=== PATIENT | female | born 1950 | race Caucasian/White ===

== ENCOUNTER → 2017-07-25 11:10 | Outpatient (CLI) | payer MEDICARE, SELFPAY ==
--- NOTE | 2017-07-25 15:45 | STRESSREP ---
Stress Test Report Date: 07/25/2017 Procedure: Exercise tolerance test Indications: Aortic valve replacement; precardiac rehabilitation evaluation Consent: Per the patient Procedure: The patient exercised on a Diego protocol for 3 minutes 30 seconds completing stage I and 30 minutes seconds stage II achieving a peak heart rate of 141 bpm (92% predicted maximal heart rate) with a peak blood pressure 172/80 mmHg and a peak MET capacity of 5 MBT's. The baseline ECG demonstrated normal sinus rhythm. The peak exercise ECG demonstrated no obvious ECG changes. There was a rare PVC during exercise. The functional capacity was considered decreased. There was no complaint of chest discomfort during exercise or recovery. The examination was discontinued secondary to dyspnea. Impression: 1. Technically adequate (percent predicted maximal heart rate greater than 85%) exercise tolerance test 2. Peak exercise ECG with no obvious ECG changes 3. Decreased functional density This note was generated with NGIation software. It may contain incorrect words, spelling, and punctuation that were not noted in checking the note before signing.
--- NOTE | 2017-07-25 15:48 | STRESSREP_ITS ---
Stress Test Report Date: 07/25/2017 Procedure: Exercise tolerance test Indications: Aortic valve replacement; precardiac rehabilitation evaluation Consent: Per the patient Procedure: The patient exercised on a Diego protocol for 3 minutes 30 seconds completing stage I and 30 minutes seconds stage II achieving a peak heart rate of 141 bpm ( 92% predicted maximal heart rate) with a peak blood pressure 172/80 mmHg and a peak MET capacity of 5 MBT's. The baseline ECG demonstrated normal sinus rhythm. The peak exercise ECG demonstrated no obvious ECG changes. There was a rare PVC during exercise. The functional capacity was considered decreased. There was no complaint of chest discomfort during exercise or recovery. The examination was discontinued secondary to dyspnea. Impression: 1. Technically adequate (percent predicted maximal heart rate greater than 85% ) exercise tolerance test 2. Peak exercise ECG with no obvious ECG changes 3. Decreased functional density This note was generated with Hunchation software. It may contain incorrect words, spelling, and punctuation that were not noted in checking the note before signing.
== END ==
PROVIDERS: Family Provider Family Medicine; PCP Family Medicine; Visit Provider Internal Medicine Cardiovascular Disease
DX: Z01.810 Encounter for preprocedural cardiovascular examination (principal); I35.9 Nonrheumatic aortic valve disorder, unspecified
CPT/HCPCS: 93017

== ENCOUNTER → 2017-09-04 12:50 | Outpatient (CLI) | payer MEDICARE, SELFPAY ==
--- NOTE | 2017-09-04 13:03 | PCM.CR.HP2 ---
CR - History & Physical - General Arrival date:: 09/04/17 Arrival time:: 13:03 Date of Admission: 09/04/17 Referring Physician: Primary Diagnosis: Z95.2 - History of Present Cardiac Event Onset Date: Enter Onset Date of cardiac illnesses in Comment field below Angina:: Yes MS:: No CABG:: No PTCA:: No Valve Replacement/Repair:: Yes - tissue AVR 05/04/17 Pacemaker/ICD: No Type of Symptoms:: Chest tightness with activity. Interventions with present event:: AVR Were there any complications?: no - Medications Home Medications: Ambulatory Orders Medication Instructions Recorded Aspirin [Aspirin, Baby] 162 mg PO DAILY@0800 09/04/17 Calcium Carbonate [Tums] 750 mg PO DAILY 09/04/17 Carboxymethylcellulose Sodium 15 ml OP PRN PRN 09/04/17 [Refresh Tears] Cholecalciferol (VIT D3) [Vitamin 1,000 unit PO DAILY 09/04/17 D] Ferrous Gluconate [Iron] 236 mg PO DAILY 09/04/17 Ibuprofen 400 mg PO 4X/DAY PRN 09/04/17 Metoprolol Tartrate [Lopressor 25 mg PO BID 09/04/17 (Beta Satish)] Multivitamin [Multiple Vitamins] 1 each PO DAILY 09/04/17 Sodium Chloride 0.65% [[place] Nasal 1 spray NASAL PRN PRN 09/04/17 [place]] - Allergies Allergies/Adverse Reactions: Allergies acetaminophen [From Tylenol] Allergy (Unknown, Verified 09/04/17 14:25) Vomiting environmental Allergy (Unknown, Uncoded 09/04/17 14:27) Itching poison neal, oak, tide detergent, strawberries, tomatoes. codeine Allergy (Uncoded 09/04/17 14:26) Unknown - Sleep Disorder Evaluation Hx of Sleep Apnea: No Do you snore loudly (louder than talking or can be heard through closed doors)?: No Do you often feel tired/ fatigued/ sleepy during daytime?: Yes Has anyone observed you stop breathing during sleep?: No History of Hypertension (for STOP score): Yes STOP Results: Positive Advanced Directives - Advanced Directives Power of Claims Adjustor: Yes Living Will: Yes Advance Directives Information Provided: No Advance Directives on File: No - Pt will bring in copy. DNR Order?:: No Past Medical History - Problems and Co-Morbidities Problems & Co-Morbidities: Obesity, Hypertension, Sedentary Lifestyle - Past Medical Illness Past Medical Illness: Arthritis - fingers, Lung or Breathing Problems - SOB with activity prior to surgery. Other Medical Illnesses:: reynauds. - Past Cardiac Illness Past Cardiac Illness: Valve Disorders - aortic stenosis, Heart Murmur - Other Other: Vision/Eye Problems - Cardiology Procedures/Interventions Cardiology Procedures/Interventions: Heart Catheterization, Echocardiogram, Stress Test (regular) - Family History Summary Family History: Heart Disease: Maternal, Paternal, Sibling, High Cholesterol: Sibling, Cancer: Maternal Review of Systems - Review of Systems Hints: Right click = Denies (Slash). Left click = Reports ([place]) Review of Present Symptoms: Reports: Fatigue, Appetite - Normal, Appetite - Special Diet, Sleep - Normal. Denies: Shortness of Breath at Rest, Shortness of Breath with Exertion, PVD, Operative Discomfort, Angina, Wound Healing, Dizziness/Lightheadedness, Heart Arrhythmia/Irregularities, Sexual Changes Risk Factor Assessment - Chief Complaint Chief Complaint: Get stronger. - Pulse Pulse Rate: 88 Pulse Rhythm: Regular - Hypertension How long have you been treated?: 25 years On medication(s)?: years Blood Pressure Sitting - Right Arm: 130/78 Blood Pressure Sitting - Left Arm: 140/80 - Diabetes Nutrition Referral for Diabetes: No - Obesity Height: 1.63 m Weight:: 75.296 kg Weight in Pounds: 166.0 lbs Body Mass Index (BMI): 28.5 Realistic Weight Goal (Loss of 1-2 lbs/week): 140 Nutritional Referral for Obesity: Yes - Physical Inactivity Physical Inactivity: Reg Exercise 30 min/day - Risk Stratification Risk Guidelines: Lowest Risk: Risk Factor for Smoking, Risk Factor for Diabetes, Risk Factor for Depression, Moderate Risk: Risk Factor for Dyslipidemia, Risk Factor for Obesity, Risk Factor for Hypertension, Risk Factor for Sedentary Lifestyle - For Smoking Smoking Risk Guidelines: Smoking Low Risk: None or quit greater than 6 months ago. Smoking Moderate Risk: Smoker or quit 6 months or less ago. Smoking High Risk: Smoker - For Dyslipidemia Dyslipidemia Risk Guidelines: Low Risk: Moderate Risk: High Risk: 15-25% fat 25.1-29% fat >/= 30% fat. <7% sat fat 7-9% sat fat >9% sat fat. <150 mg chol 150-299 mg chol >/= 300 mg chol. LDL <100 LDL 100-129 LDL >/= 130. Chol/HDL ratio <5.0 Chol/HDL ratio 5.0-6.0 Chol/HDL ratio >6.0. Triglycerides <100 Triglycerides 100-149 Triglycerides >/= 150 - For Diabetes Mellitus Diabetes Risk Guidelines: Diabetes Low Risk: HgA1c <6.5% and/or FBG <120. Diabetes Moderate Risk: HgA1c 6.6-7.9% and/or FBG 120-180. Diabetes High Risk: HgA1c >/= 8% and/or FBG >180 - For Obesity/Overweight Obesity/Overweight Risk Guidelines: Obesity Low Risk: BMI <25.0. Obesity Moderate Risk: BMI 25-29.9. Obesity High Risk: BMI >/= 30.0 - For Hypertension Hypertension Risk Guidelines: Hypertension Low Risk: Systolic <120 and Diastolic <80. Hypertension Moderate Risk: Systolic 120-139 and Diastolic 80-89. Hypertension High Risk: Systolic >/= 140 and Diastolic >/= 90 - For Sedentary Lifestyle Sedentary Lifestyle Risk Guidelines: Sedentary Lifestyle Low Risk: >/= 1,500 kcal/week. Sedentary Lifestyle Moderate Risk: 700-1,499 kcal/week. Sedentary Lifestyle High Risk: < 700 kcal/week - For Depression Depression Risk Guidelines: Depression Low Risk: Not clinically depressed. Depression Moderate Risk: Mildly depressed. Depression High Risk: Clinically depressed Social History - Smoking History Smoking Status: Never smoker Hx Tobacco Use: No Hx Smoking Exposure: Yes - exposed as a child to smoke - Alcohol Use Alcohol Usage: No - Substance Abuse Hx Substance Use: No - Occupation Occupation (List type of work in comments):: Retired - Hobbies, Recreation, Social Activities Hobbies: Sewing, Watch TV, Other - gardening. Recreational Activities: I am able to engage in all my recreational activities Marital Status - Status Marital Status: Single - Current Living Arrangements Living Environment:: Alone - Children Do any of your children live nearby?: No - Safety Do you feel safe in your surroundings?: Yes - Assistance Do you need any assistance at home?: no
--- NOTE | 2017-09-04 13:13 | CR.ITP_ITS ---
Exercise - Initial Assessment - Visit Date of Eval: 09/04/17 - Stages of Change Stages of Change:: Action - Hypertension Do any of the following apply?: Yes - Intervention Home Exercise/Activity Goal:: Moderate Exercise 30 min/day x 5 days/wk - Education Goals:: Warm-up, RPE ROBIN Scale, S/S, Safe Exercise, Self-Monitoring - Exercise Program Goals Exercise Program Goals: Aerobic Activity >30 min Nutrition - Initial Assessment - Program Goals Nutrition Program Goals: LDL <70. Total Cholesterol <200. HDL >45. Triglycerides <150. HgbA1C <7%. BMI <25 - Visit Date of Assessment:: 09/04/17 - Stages of Change Stages of Change:: Action - Diabetes Diabetes:: No - Weight Management Height: 1.63 m Weight:: 75.296 kg Weight Goal (kg):: 63.503 kg Body Fat %:: 28.65 Goal % Body Fat:: 24 - Intervention Referral to dietitian:: Yes Referral to Diabetic Clinic:: No Will attend diet classes:: Yes - Education Gave educational materials for:: Healthy eating Nutrition - 30-Day Assessment - Program Goals Nutrition Program Goals: LDL <70. Total Cholesterol <200. HDL >45. Triglycerides <150. HgbA1C <7%. BMI <25 - Diabetes Diabetes:: No Nutrition - 60-Day Assessment - Program Goals Nutrition Program Goals: LDL <70. Total Cholesterol <200. HDL >45. Triglycerides <150. HgbA1C <7%. BMI <25 - Diabetes Diabetes:: No Nutrition - 90-Day Assessment - Program Goals Nutrition Program Goals: LDL <70. Total Cholesterol <200. HDL >45. Triglycerides <150. HgbA1C <7%. BMI <25 - Diabetes Diabetes:: No Nutrition - Final Assessment - Program Goals Nutrition Program Goals: LDL <70. Total Cholesterol <200. HDL >45. Triglycerides <150. HgbA1C <7%. BMI <25 - Diabetes Diabetes:: No Tobacco - Initial Assessment - Program Goals Tobacco Program Goals: Complete smoking cessation. Attend education classes. Improve Knowledge Test score - Stage of Change Stages of Change:: Maintenance - Learning Barriers Learning Barriers: Ready to Learn Total Score:: 8 - Family Support Do you have family support?: Yes - Tobacco Use Tobacco Use: Non-smoker Do you use smokeless tobacco?: No - Intervention Smoking Cessation Referral:: No Individual Education/Counseling:: No Education Schedule Given:: Yes - Education Gave educational material for:: Coronary artery disease, Risk factors, Sexuality , Medical compliance, Cardiac A&P, Angina signs & symptoms Psychosocial - Initial Assess - Target Goals Target Goals: Assess presence or absence of depression. Using a valid screening tool, maximizes coping skills. Positive support system - Stages of Change Stages of Change:: Action - Psychosocial Test Tool Used:: HANDS Depression Questionnaire Self-reported stress:: no Tests Completed: Mood Scale Test Total Mood Screening Score:: 4 Self-Efficacy Score:: 8 - Intervention PS - Interventions: Yes Attend Stress Management Classes, Yes Uses Stress Management Skills, No Referral to Mental Health, No Referral to [facility] Case Management, No Referral to Physician - Education Gave educational materials for:: Coping techniques, Signs & symptoms of depression, Stress management, Relaxation techniques - Patient/Program Goal Preventative Medication(s):: Aspirin, ASHLEY inhibitor, Beta debora, Statin/lipid - Assistive Devices Assistive Devices:: None Fall Risk Assessed:: Yes Patient Health Questionnaire Initial Assessment 1. Little interest or pleasure in doing things: Several days 2. Feeling down, depressed, or hopeless: Several days 3. Trouble falling or staying asleep, or sleeping too much: Not at all 4. Feeling tired or having little energy: Several days 5. Poor appetite or overeating: Not at all 6. Feeling bad about yourself -- or that you are a failure or have let yourself or your family down: Not at all 7. Trouble concentrating on things, such as reading the newspaper or watching television: Not at all 8. Moving or speaking so slowly that other people could have noticed. Or the opposite - being so fidgety or restless that you have been moving around a lot more than usual: Not at all 9. Thoughts that you would be better off , or of hurting yourself in some way: Not at all How difficult have these problems made it for you to do your work, take care of things at home, or get along with other people?: Not difficult at all Total Score: 3 Knowledge Test - Check your knowledge Initial The #1 cause of in the [place] each year is:: Heart disease Which of the following is a common treatment for heart disease?: All of the above The arteries that feed the heart are called:: Coronary arteries HDL cholesterol is known as the good cholesterol.: False What disease increases your risk for heart disease?: Diabetes What food product raises blood cholesterol level the most?: Saturated fat The bad cholesterol in the blood is called:: HDL Hypertension is another word for:: High blood pressure A blood pressure reading of 148/88 is considered normal.: False Exercise will only benefit your health when your heart rate reaches a target level.: False Total Score:: 8 Self-Efficacy Initial Assessment We would like to know how confident you are in doing certain activities. Please select your confidence level for:: Select your confidence level for the following using the scale 1-10 where 1 is not at all confident and 10 is totally confident. Your score is the average of all 6 responses. Fatigue: How confident are you that you can keep the fatigue caused by your disease from interfering with the things you want to do? Select Number: 9 Physical Discomfort or Pain: How confident are you that you can keep the physical discomfort or pain of your disease from interfering with the things you want to do? Select Number: 10 Emotional Distress: How confident are you that you can keep the emotional distress caused by your disease from interfering with the things you want to do? Select Number: 9 Other Symptoms or Health Problems: How confident are you that you can keep other symptoms or health problems from interfering with the things you want to do? Select Number: 8 Different Tasks and Activities: How confident are you that you can do the different tasks and activities needed to manage your health condition so as to reduce your need to see a doctor? Select Number: 9 Medication: How confident are you that you can do things other than just taking medication to reduce how much your illness affects your everyday life? Select Number: 10 Total Score:: 9 Nutrition Survey - Nutrition Survey Instructions Scoring Instructions: Scoring is as follows: Yes = 1 points. No = 0 point. Patient score that is >/=12 is considered to be at potential nutritional risk and could benefit from a referral to a registered dietitian. - Nutrition Survey Initial Have you lost >10 lbs over the past 2 months without trying?: No Are you following a special diet at home for diabetes, low fat, or low salt?: Yes Are you interested in meeting with a dietitian for help understanding your diet? : Yes Do you eat less than 3 meals a day?: No Do you eat fatty meats (banuelos, sausage, ribs, etc), fried foods, desserts, large amounts of salad dressings, margarine, butter, or cheese most days?: No Do you have food allergies? [Enter types in comment field]: Yes Do you eat in restaurants more than 3 times a week?: No Do you season food with salt, seasoning salt, or garlic salt?: No Do you used canned, boxed, frozen meals, or soups, seasoning packets?: Yes Total Score:: 4 Cardiac Rehabilitation Goals - Cardiac Rehab Goals Cardiac Rehabilitation Goals: 1. Maintain the individual as the primary focus of care. 2. To improve the patient's quality of life. 3. Identification of cardiac risk factors and provide cardiac risk factor management. 4. Enhance the psychosocial status of the patient. 5. Reconditioning enough to allow the patient to resume customary activities. 6. Control symptoms of cardiac disease - Scale Scale for measuring improvement of personal goals: Enter appropriate number in Comments. 2 = Unchanged. 3 = Slightly Better. 4 = Moderate Improvement. 5 = Met my Goal Initial Assessment Personal Goals: 30-day Re-assessment: Improve energy level, Participate in home exercise program, Improve muscle strength and endurance, Improve diet and eating habits (eat healthier), Control risk factors (learn risk factor modification)
--- NOTE | 2017-09-04 13:29 | CR.HP_ITS ---
CR - History & Physical - General Arrival date:: 09/04/17 Arrival time:: 13:03 Date of Admission: 09/04/17 Referring Physician: Primary Diagnosis: Z95.2 - History of Present Cardiac Event Onset Date: Enter Onset Date of cardiac illnesses in Comment field below Angina:: Yes SD:: No CABG:: No PTCA:: No Valve Replacement/Repair:: Yes - tissue AVR 05/04/17 Pacemaker/ICD: No Type of Symptoms:: Chest tightness with activity. Interventions with present event:: AVR Were there any complications?: no - Medications Home Medications: Ambulatory Orders Medication Instructions Recorded Aspirin [Aspirin, Baby] 162 mg PO DAILY@0800 09/04/17 Calcium Carbonate [Tums] 750 mg PO DAILY 09/04/17 Carboxymethylcellulose Sodium 15 ml OP PRN PRN 09/04/17 [Refresh Tears] Cholecalciferol (VIT D3) [Vitamin 1,000 unit PO DAILY 09/04/17 D] Ferrous Gluconate [Iron] 236 mg PO DAILY 09/04/17 Ibuprofen 400 mg PO 4X/DAY PRN 09/04/17 Metoprolol Tartrate [Lopressor 25 mg PO BID 09/04/17 (Beta Satish)] Multivitamin [Multiple Vitamins] 1 each PO DAILY 09/04/17 Sodium Chloride 0.65% [[place] Nasal 1 spray NASAL PRN PRN 09/04/17 [place]] - Allergies Allergies/Adverse Reactions: Allergies acetaminophen [From Tylenol] Allergy (Unknown, Verified 09/04/17 14:25) Vomiting environmental Allergy (Unknown, Uncoded 09/04/17 14:27) Itching poison neal, oak, tide detergent, strawberries, tomatoes. codeine Allergy (Uncoded 09/04/17 14:26) Unknown - Sleep Disorder Evaluation Hx of Sleep Apnea: No Do you snore loudly (louder than talking or can be heard through closed doors)? : No Do you often feel tired/ fatigued/ sleepy during daytime?: Yes Has anyone observed you stop breathing during sleep?: No History of Hypertension (for STOP score): Yes STOP Results: Positive Advanced Directives - Advanced Directives Power of Access Specialist: Yes Living Will: Yes Advance Directives Information Provided: No Advance Directives on File: No - Pt will bring in copy. DNR Order?:: No Past Medical History - Problems and Co-Morbidities Problems & Co-Morbidities: Obesity, Hypertension, Sedentary Lifestyle - Past Medical Illness Past Medical Illness: Arthritis - fingers, Lung or Breathing Problems - SOB with activity prior to surgery. Other Medical Illnesses:: reynauds. - Past Cardiac Illness Past Cardiac Illness: Valve Disorders - aortic stenosis, Heart Murmur - Other Other: Vision/Eye Problems - Cardiology Procedures/Interventions Cardiology Procedures/Interventions: Heart Catheterization, Echocardiogram, Stress Test (regular) - Family History Summary Family History: Heart Disease: Maternal, Paternal, Sibling, High Cholesterol: Sibling, Cancer: Maternal Review of Systems - Review of Systems Hints: Right click = Denies ([place]). Left click = Reports ([place]) Review of Present Symptoms: Reports: Fatigue, Appetite - Normal, Appetite - Special Diet, Sleep - Normal. Denies: Shortness of Breath at Rest, Shortness of Breath with Exertion, PVD, Operative Discomfort, Angina, Wound Healing, Dizziness/Lightheadedness, Heart Arrhythmia/Irregularities, Sexual Changes Risk Factor Assessment - Chief Complaint Chief Complaint: Get stronger. - Pulse Pulse Rate: 88 Pulse Rhythm: Regular - Hypertension How long have you been treated?: 25 years On medication(s)?: years Blood Pressure Sitting - Right Arm: 130/78 Blood Pressure Sitting - Left Arm: 140/80 - Diabetes Nutrition Referral for Diabetes: No - Obesity Height: 1.63 m Weight:: 75.296 kg Weight in Pounds: 166.0 lbs Body Mass Index (BMI): 28.5 Realistic Weight Goal (Loss of 1-2 lbs/week): 140 Nutritional Referral for Obesity: Yes - Physical Inactivity Physical Inactivity: Reg Exercise 30 min/day - Risk Stratification Risk Guidelines: Lowest Risk: Risk Factor for Smoking, Risk Factor for Diabetes , Risk Factor for Depression, Moderate Risk: Risk Factor for Dyslipidemia, Risk Factor for Obesity, Risk Factor for Hypertension, Risk Factor for Sedentary Lifestyle - For Smoking Smoking Risk Guidelines: Smoking Low Risk: None or quit greater than 6 months ago. Smoking Moderate Risk: Smoker or quit 6 months or less ago. Smoking High Risk: Smoker - For Dyslipidemia Dyslipidemia Risk Guidelines: Low Risk: Moderate Risk: High Risk: 15-25% fat 25.1-29% fat >/= 30% fat. <7% sat fat 7-9% sat fat >9% sat fat. <150 mg chol 150-299 mg chol >/= 300 mg chol. LDL <100 LDL 100-129 LDL >/= 130. Chol/HDL ratio <5.0 Chol/HDL ratio 5.0-6.0 Chol/HDL ratio >6.0. Triglycerides <100 Triglycerides 100-149 Triglycerides >/= 150 - For Diabetes Mellitus Diabetes Risk Guidelines: Diabetes Low Risk: HgA1c <6.5% and/or FBG <120. Diabetes Moderate Risk: HgA1c 6.6-7.9% and/or FBG 120-180. Diabetes High Risk: HgA1c >/= 8% and/or FBG >180 - For Obesity/Overweight Obesity/Overweight Risk Guidelines: Obesity Low Risk: BMI <25.0. Obesity Moderate Risk: BMI 25-29.9. Obesity High Risk: BMI >/= 30.0 - For Hypertension Hypertension Risk Guidelines: Hypertension Low Risk: Systolic <120 and Diastolic <80. Hypertension Moderate Risk: Systolic 120-139 and Diastolic 80-89. Hypertension High Risk: Systolic >/= 140 and Diastolic >/= 90 - For Sedentary Lifestyle Sedentary Lifestyle Risk Guidelines: Sedentary Lifestyle Low Risk: >/= 1 ,500 kcal/week. Sedentary Lifestyle Moderate Risk: 700-1,499 kcal/week. Sedentary Lifestyle High Risk: < 700 kcal/week - For Depression Depression Risk Guidelines: Depression Low Risk: Not clinically depressed. Depression Moderate Risk: Mildly depressed. Depression High Risk: Clinically depressed Social History - Smoking History Smoking Status: Never smoker Hx Tobacco Use: No Hx Smoking Exposure: Yes - exposed as a child to smoke - Alcohol Use Alcohol Usage: No - Substance Abuse Hx Substance Use: No - Occupation Occupation (List type of work in comments):: Retired - Hobbies, Recreation, Social Activities Hobbies: Sewing, Watch TV, Other - gardening. Recreational Activities: I am able to engage in all my recreational activities Marital Status - Status Marital Status: Single - Current Living Arrangements Living Environment:: Alone - Children Do any of your children live nearby?: No - Safety Do you feel safe in your surroundings?: Yes - Assistance Do you need any assistance at home?: no
[2017-09-04 14:27] VITALS: BP 130/78; BP 140/80; PULSE 88; BMI 28.5
== END ==
PROVIDERS: Family Provider Family Medicine; PCP Family Medicine; Visit Provider Internal Medicine Cardiovascular Disease
DX: Z95.2 Presence of prosthetic heart valve (principal)

== ENCOUNTER 2017-10-02 09:15 | Outpatient (RCR) | payer MEDICARE, SELFPAY ==
--- NOTE | 2017-09-25 08:02 | PCM.CR.ITP ---
General Information - General Information Admitting Diagnosis: aortic valve replacement - Education/Goals Barriers to Learning: Vision Impairment Individual Counseling: Initial Assessment: Abnormal Cholesterol Levels, High Blood Pressure, Hypertension, 30-Day Assessment: Abnormal Cholesterol Levels, High Blood Pressure, Hypertension Cardiac Rehabilitation Goals: 1. Maintain the individual as the primary focus of care. 2. To improve the patient's quality of life. 3. Identification of cardiac risk factors and provide cardiac risk factor management. 4. Enhance the psychosocial status of the patient. 5. Reconditioning enough to allow the patient to resume customary activities. 6. Control symptoms of cardiac disease Scale for measuring improvement of personal goals: Enter appropriate number in Comments. 2 = Unchanged. 3 = Slightly Better. 4 = Moderate Improvement. 5 = Met my Goal Exercise - 30-day Assessment - Visit Date of Eval: 09/25/17 - Stages of Change Stages of Change:: Action - Exercise Prescription Mode:: Treadmill, Airdyne, NuStep Frequency (x/week): 3 Duration:: 30 METs - Progression: 0.5-1 MET as tolerated: 3.5 Target Heart Rate:: 114-122 - Hypertension Resting Blood Pressure:: 128/66 Peak Exercise Blood Pressure:: 180/88 Medication Changes:: No - Intervention Home Exercise/Activity Goal:: Sitting Time <3 hrs/day - Education Goals:: Warm-up, RPE ROBIN Scale, S/S, Safe Exercise, Self-Monitoring - Exercise Program Goals Exercise Program Goals: Aerobic Activity >30 min, B/P <140/90 Nutrition - 30-Day Assessment - Program Goals Nutrition Program Goals: LDL <70. Total Cholesterol <200. HDL >45. Triglycerides <150. HgbA1C <7%. BMI <25 - Visit Date of Eval: 09/25/17 - Stages of Change Stages of Change:: Action - Lipids Has the patient seen the dietitian?: No - Diabetes Diabetes:: No - Weight Management Weight:: 167 kg - Intervention Referral to dietitian:: No Referral to Diabetic Clinic:: No Will attend diet classes:: Yes - Education Attended class for:: Signs & symptoms of hypoglycemia, Signs & symptoms of hyperglycemia, Relate diabetes to coronary artery disease, Healthy eating Tobacco - Initial Assessment - Program Goals Tobacco Program Goals: Complete smoking cessation. Attend education classes. Improve Knowledge Test score - Learning Barriers Learning Barriers: Ready to Learn Tobacco - 30-Day Assessment - Program Goals Tobacco Program Goals: Complete smoking cessation. Attend education classes. Improve Knowledge Test score - Stage of Change Stages of Change:: Action - Learning Barriers Learning Barriers: Participates in education - Family Support Do you have family support?: Yes - Tobacco Use Tobacco Use: Non-smoker Do you use smokeless tobacco?: No - Intervention Smoking Cessation Referral:: No Individual Education/Counseling:: No Education Schedule Given:: Yes - Education Attended class for:: Tobacco triggers, Coronary artery disease, Risk factors, Sexuality, Medical compliance, Cardiac A&P Psychosocial - Initial Assess - Target Goals Target Goals: Assess presence or absence of depression. Using a valid screening tool, maximizes coping skills. Positive support system - Psychosocial Test Tool Used:: HANDS Depression Questionnaire - Assistive Devices Fall Risk Assessed:: Yes Psychosocial - 30-Day Assess - Target Goals Target Goals: Assess presence or absence of depression. Using a valid screening tool, maximizes coping skills. Positive support system - Stages of Change Stages of Change:: Action - Psychosocial Test Tool Used:: HANDS Depression Questionnaire - Intervention PS - Interventions: Yes Attend Stress Management Classes, Yes Uses Stress Management Skills, No Referral to Mental Health, No Referral to [facility] Case Management, No Referral to Physician - Education Attended classes for:: Coping techniques, Signs & symptoms of depression, Stress management, Relaxation techniques - Assistive Devices Assistive Devices:: None Fall Risk Assessed:: Yes Patient Health Questionnaire 30-Day Re-eval Assessment 1. Little interest or pleasure in doing things: Not at all 2. Feeling down, depressed, or hopeless: Not at all 3. Trouble falling or staying asleep, or sleeping too much: Not at all 4. Feeling tired or having little energy: Several days 5. Poor appetite or overeating: Not at all 6. Feeling bad about yourself -- or that you are a failure or have let yourself or your family down: Not at all 7. Trouble concentrating on things, such as reading the newspaper or watching television: Not at all 8. Moving or speaking so slowly that other people could have noticed. Or the opposite - being so fidgety or restless that you have been moving around a lot more than usual: Not at all 9. Thoughts that you would be better off , or of hurting yourself in some way: Not at all How difficult have these problems made it for you to do your work, take care of things at home, or get along with other people?: Not difficult at all Total Score: 1 Self-Efficacy 30-Day Re-eval Assessment We would like to know how confident you are in doing certain activities. Please select your confidence level for:: Select your confidence level for the following using the scale 1-10 where 1 is not at all confident and 10 is totally confident. Your score is the average of all 6 responses. Fatigue: How confident are you that you can keep the fatigue caused by your disease from interfering with the things you want to do? Select Number: 5 Physical Discomfort or Pain: How confident are you that you can keep the physical discomfort or pain of your disease from interfering with the things you want to do? Select Number: 5 Emotional Distress: How confident are you that you can keep the emotional distress caused by your disease from interfering with the things you want to do? Select Number: 5 Other Symptoms or Health Problems: How confident are you that you can keep other symptoms or health problems from interfering with the things you want to do? Select Number: 5 Different Tasks and Activities: How confident are you that you can do the different tasks and activities needed to manage your health condition so as to reduce your need to see a doctor? Select Number: 5 Medication: How confident are you that you can do things other than just taking medication to reduce how much your illness affects your everyday life? Select Number: 5 Total Score:: 5
[2017-09-25 08:21] VITALS: BP 128/66; BP 180/88
== END 2017-10-02 23:59 ==
LOC: CR 09:15
PROVIDERS: Family Provider Family Medicine; PCP Family Medicine; Visit Provider Internal Medicine Cardiovascular Disease
DX: Z95.2 Presence of prosthetic heart valve (principal)
CPT/HCPCS: 93798

== ENCOUNTER 2017-10-25 10:08 | Observation (INO) | payer MEDICARE, SELFPAY ==
[2017-10-25] VITALS (10 sets, daily range): BP systolic 134–200; BP diastolic 56–88; PULSE 76–124; RESP 14–22; TEMP 36.6–36.9; O2SAT 96–100; BMI 28.4; BMI 28.0; BMI 28.1
--- NOTE | 2017-10-25 10:52 | RAD_ITS ---
STUDY: X-RAY CHEST REASON FOR EXAM: Female, 67 years old. Chest pain. Abnormal EKG findings. TECHNIQUE: PA and lateral views of the chest. COMPARISON: None. FINDINGS: EKG electrodes are seen. The lungs are clear and expanded. There is no demonstrated pleural abnormality. Sternal cerclage wires are present from a prior sternotomy. The patient is status post mitral valve replacement. Normal mediastinum and chelsey. Normal visualized pulmonary arteries. Normal visualized aortic arch and descending thoracic aorta. There is demineralization of the osseous structures. Increased kyphosis. Normal visualized ribs, clavicles, and shoulders. There is no demonstrated abnormality of the visualized soft tissue structures of the upper abdomen. RAD/Chest PA and Lateral IMPRESSION: No acute abnormality is seen. Electronically Signed: Cristopher Avila MD at 12:23 EDT Tel [phone], Service support ,
[2017-10-25 11:11] LABS: Absolute Lymphocyte Count 1.46 X10^3/ul (0.83-4.51); Absolute Neutrophil Count 4.9 X10^3/uL (2.0-7.7); Basophil# 0.01 X10^3/uL; Basophil% 0.1 % (0-1); Eosinophil# 0.04 X10^3/uL; Eosinophils% 0.6 % (0-5); Hematocrit 39.7 % (37-47); Hemoglobin 11.9 g/dl (12.0-15.0); Lymphocyte # 1.46 X10^3/ul (4.0); Lymphocyte % 20.9 % (19-41); Mean Corpuscular Hgb 26.5 pg (27.0-32.0); Mean Corpuscular Volume 88.4 fL (81-99); Mean Platelet Vol. 9.1 fl (6.2-12.0); Monocyte# 0.51 X10^3/uL; Monocyte% 7.3 % (0-10); Neutrophil % 70.4 % (47-70); POSITIVE COUNT NO; POSITIVE DIFFERENTIAL NO; POSITIVE MORPHOLOGY NO; Platelet Count 296 K/mm3 (150-450); RBC Distribution Width CV 15.8 % (11.6-14.6); RBC Distribution Width SD 50.8 fl (35.1-43.9); Red Blood Count 4.49 M/mm3 (4.2-5.4)
[2017-10-25 11:29] LABS: Anion Gap 6 (5-15); BUN 14 mg/dL (7-18); BUN/Creat Ratio 19.2 RATIO (10-20); Calcium,Total 9.3 mg/dL (8.5-10.1); Chloride 104 mmol/L (98-107); Creatinine, Serum 0.73 mg/dL (0.55-1.02); EST Glomerular Filtration Rate 84 mL/min (>60); Est Glom Filt Rate - Afr Amer 102 mL/min (>60); Estimated Creatinine Clearance 47.14 ml/min; Glucose 100 mg/dL (74-106); Potassium 4.2 mmol/L (3.5-5.1); Sodium Level 137 mmol/L (136-145)
--- NOTE | 2017-10-25 12:27 | ED.VISSUMM ---
- ER Visit Summary Date of Service: 10/25/17 Chief Complaint: Abnormal EKG History of Present Illness: The patient is a 67 F who was sent due to an abnormal EKG. She has a history of aortic valve replacement. She was at cardiac rehab today. She states that she has generalized fatigue and just does not feel well. She denies any chest pain or shortness of breath and states I can climbing stairs no problem. She did have some mild dizziness however she relates this to sinusitis as she has had a couple of days of sinus congestion and bilateral ear pressure. She has been taking loratadine and Flonase. While at cardiac rehab today when she was placed on the monitor she was noted to be and what appeared to be an accelerated junctional rhythm. The EKG was sent to Dr. Machuca who wanted the patient evaluated here in the emergency department. Physical Examination: Afebrile vitals are stable Moist mucous membranes Heart regular rate and rhythm Lungs are clear Abdomen soft Alert Extremities nontender symmetric radial pulses Test Results: OG shows an accelerated junctional rhythm at a rate of 88. There are septal Q waves. No old EKG to compare to. Chest x-ray on my review shows no acute process. Labs notable for troponin 0.231. Emergency Department Course and Treatment: She is symptomatic while here at rest. She did have an elevated troponin. I spoke to the patient's lean coach. He also vocalize concern for possible atrial flutter without being able to see clear flutter waves. He reviewed the patient's preoperative cardiac catheterization and did note that the patient had mild to moderate coronary artery disease. The patient will be discussed with hospitalist and admitted here for further workup including repeat enzymes and at minimum stress testing. Treatment Plan: [] Disposition: Admit Impression: Accelerated junctional rhythm Elevated troponin Coronary artery disease This note was generated with [employer] dictation software. It may contain incorrect words, spelling, and punctuation that were not noted in review of the chart prior to signing ED Disposition - Plan for ED Patient: Chief Complaint: Fatigue Referrals: Erik Palafox MD [Primary Care Provider] -
--- NOTE | 2017-10-25 12:30 | ED.DCSUM_ITS ---
- ER Visit Summary Date of Service: 10/25/17 Chief Complaint: Abnormal EKG History of Present Illness: The patient is a 67 F who was sent due to an abnormal EKG. She has a history of aortic valve replacement. She was at cardiac rehab today. She states that she has generalized fatigue and just does not feel well. She denies any chest pain or shortness of breath and states I can climbing stairs no problem. She did have some mild dizziness however she relates this to sinusitis as she has had a couple of days of sinus congestion and bilateral ear pressure. She has been taking loratadine and Flonase. While at cardiac rehab today when she was placed on the monitor she was noted to be and what appeared to be an accelerated junctional rhythm. The EKG was sent to Dr. Machuca who wanted the patient evaluated here in the emergency department. Physical Examination: Afebrile vitals are stable Moist mucous membranes Heart regular rate and rhythm Lungs are clear Abdomen soft Alert Extremities nontender symmetric radial pulses Test Results: OG shows an accelerated junctional rhythm at a rate of 88. There are septal Q waves. No old EKG to compare to. Chest x-ray on my review shows no acute process. Labs notable for troponin 0.231. Emergency Department Course and Treatment: She is symptomatic while here at rest. She did have an elevated troponin. I spoke to the patient's gun examiner. He also vocalize concern for possible atrial flutter without being able to see clear flutter waves. He reviewed the patient's preoperative cardiac catheterization and did note that the patient had mild to moderate coronary artery disease. The patient will be discussed with hospitalist and admitted here for further workup including repeat enzymes and at minimum stress testing. Treatment Plan: [] Disposition: Admit Impression: Accelerated junctional rhythm Elevated troponin Coronary artery disease This note was generated with [employer] dictation software. It may contain incorrect words, spelling, and punctuation that were not noted in review of the chart prior to signing ED Disposition - Plan for ED Patient: Chief Complaint: Fatigue Referrals: Erik Palafox MD [Primary Care Provider] -
[2017-10-25] MEDS: Enoxaparin 80 MG/0.8 ML Syringe 70 MG SC ×2 (12:36→21:12)
--- NOTE | 2017-10-25 13:55 | PCM.CR.ITP ---
General Information - General Information Admitting Diagnosis: aortic valve replacement - Education/Goals Barriers to Learning: Vision Impairment Individual Counselin-Day Assessment: Abnormal Cholesterol Levels, High Blood Pressure Cardiac Rehabilitation Goals: 1. Maintain the individual as the primary focus of care. 2. To improve the patient's quality of life. 3. Identification of cardiac risk factors and provide cardiac risk factor management. 4. Enhance the psychosocial status of the patient. 5. Reconditioning enough to allow the patient to resume customary activities. 6. Control symptoms of cardiac disease Scale for measuring improvement of personal goals: Enter appropriate number in Comments. 2 = Unchanged. 3 = Slightly Better. 4 = Moderate Improvement. 5 = Met my Goal Exercise - 60-Day Assessment - Visit Date of Eval: 10/25/17 Session #:: 21 - Stages of Change Stages of Change:: Action - Exercise Prescription Mode:: Treadmill, Airdyne, NuStep Frequency (x/week): 3 Duration:: 30 METs: 4.2 - Hypertension Resting Blood Pressure:: 134/60 Peak Exercise Blood Pressure:: 200/82 Medication Changes:: No - Intervention Home Exercise/Activity Goal:: Sitting Time <3 hrs/day - Education Goals:: Warm-up, RPE ROBIN Scale, S/S, Safe Exercise, Self-Monitoring - Exercise Program Goals Exercise Program Goals: Aerobic Activity >30 min, B/P <130/80 Nutrition - 60-Day Assessment - Program Goals Nutrition Program Goals: LDL <70. Total Cholesterol <200. HDL >45. Triglycerides <150. HgbA1C <7%. BMI <25 - Visit Date of Eval: 10/25/17 - Stages of Change Stages of Change:: Action - Lipids Has the patient seen the dietitian?: No - Diabetes Diabetes:: No - Weight Management Weight:: 75.977 kg - Intervention Referral to dietitian:: No Referral to Diabetic Clinic:: No Will attend diet classes:: Yes - Education Attended class for:: Signs & symptoms of hypoglycemia, Signs & symptoms of hyperglycemia, Relate diabetes to coronary artery disease, Healthy eating Tobacco - Initial Assessment - Program Goals Tobacco Program Goals: Complete smoking cessation. Attend education classes. Improve Knowledge Test score - Learning Barriers Learning Barriers: Ready to Learn Tobacco - 60-Day Assessment - Program Goals Tobacco Program Goals: Complete smoking cessation. Attend education classes. Improve Knowledge Test score - Stage of Change Stages of Change:: Action - Learning Barriers Learning Barriers: Participates in education - Family Support Do you have family support?: Yes - Tobacco Use Tobacco Use: Non-smoker Do you use smokeless tobacco?: No - Intervention Smoking Cessation Referral:: No Individual Education/Counseling:: No Education Schedule Given:: Yes - Education Attended class for:: Tobacco triggers, Coronary artery disease, Risk factors, Sexuality, Medical compliance, Cardiac A&P, Angina signs & symptoms Psychosocial - Initial Assess - Target Goals Target Goals: Assess presence or absence of depression. Using a valid screening tool, maximizes coping skills. Positive support system - Psychosocial Test Tool Used:: HANDS Depression Questionnaire - Assistive Devices Fall Risk Assessed:: Yes Psychosocial - 60-Day Assess - Target Goals Target Goals: Assess presence or absence of depression. Using a valid screening tool, maximizes coping skills. Positive support system - Psychosocial Test Tool Used:: HANDS Depression Questionnaire - Intervention PS - Interventions: Yes Attend Stress Management Classes, Yes Uses Stress Management Skills, No Referral to Mental Health, No Referral to [facility] Case Management, No Referral to Physician - Education Attended classes for:: Coping techniques, Signs & symptoms of depression, Stress management, Relaxation techniques - Assistive Devices Assistive Devices:: None Fall Risk Assessed:: Yes Patient Health Questionnaire 60-Day Re-eval Assessment 1. Little interest or pleasure in doing things: Not at all 2. Feeling down, depressed, or hopeless: Not at all 3. Trouble falling or staying asleep, or sleeping too much: Not at all 4. Feeling tired or having little energy: Several days 5. Poor appetite or overeating: Not at all 6. Feeling bad about yourself -- or that you are a failure or have let yourself or your family down: Not at all 7. Trouble concentrating on things, such as reading the newspaper or watching television: Not at all 8. Moving or speaking so slowly that other people could have noticed. Or the opposite - being so fidgety or restless that you have been moving around a lot more than usual: Not at all 9. Thoughts that you would be better off , or of hurting yourself in some way: Not at all How difficult have these problems made it for you to do your work, take care of things at home, or get along with other people?: Not difficult at all Total Score: 1 Self-Efficacy 60-Day Re-eval Assessment We would like to know how confident you are in doing certain activities. Please select your confidence level for:: Select your confidence level for the following using the scale 1-10 where 1 is not at all confident and 10 is totally confident. Your score is the average of all 6 responses. Fatigue: How confident are you that you can keep the fatigue caused by your disease from interfering with the things you want to do? Select Number: 6 Physical Discomfort or Pain: How confident are you that you can keep the physical discomfort or pain of your disease from interfering with the things you want to do? Select Number: 6 Emotional Distress: How confident are you that you can keep the emotional distress caused by your disease from interfering with the things you want to do? Select Number: 6 Other Symptoms or Health Problems: How confident are you that you can keep other symptoms or health problems from interfering with the things you want to do? Select Number: 6 Different Tasks and Activities: How confident are you that you can do the different tasks and activities needed to manage your health condition so as to reduce your need to see a doctor? Select Number: 6 Medication: How confident are you that you can do things other than just taking medication to reduce how much your illness affects your everyday life? Select Number: 6 Total Score:: 6
--- NOTE | 2017-10-25 14:43 | ECHOD_ITS ---
Reason For Study: Arrhythmia Procedure This was a 2D Doppler, Color Flow transthoracic echocardiogram. Exam performed portable in patient room. Left Ventricle Moderate concentric left ventricular hypertrophy. The estimated ejection fraction is 65 %. Stage 1 diastolic dysfunction. No regional wall motion abnormalities noted. Right Ventricle Normal size and thickness. Normal systolic function. Atria Normal left atrium. Normal right atrium. Normal atrial septum. Mitral Valve The mitral valve is structurally normal. No prolapse or stenosis seen. Moderate mitral annular calcification extending into the posterior leaflet. Tricuspid Valve Normal tricuspid valve. Trivial tricuspid valve insufficiency. Right ventricular systolic pressure estimated to be 19 mmHg. Aortic Valve Bioprosthetic aortic valve. Stable appearing bioprosthetic aortic valve apparatus. Pulmonic Valve Normal pulmonic valve. Great Vessels Normal aortic root. Normal arch. Normal inferior vena cava. Inferior vena cava collapse with sniff. Pericardium/Pleural No pericardial effusion. MMode/2D Measurements & Calculations LVIDd: 2.9 cm IVSd: 1.5 cm LVOT diam: 2.0 cm LVIDs: 1.5 cm LVPWd: 1.5 cm LVOT area: 3.0 cm2 RVDd: 3.0 cm FS: 49.3 % LA dimension: 3.8 cm LAV(MOD-bp): 50.5 ml LA A4 area: 13.7 cm2 LAV(MOD-bp) Indexed: 28.2 ml/m2 LAV(MOD-sp2): 67.8 ml LAV(MOD-sp4): 32.5 ml RA A4 area: 15.6 cm2 Doppler Measurements & Calculations MV E max lilli: 147.3 cm/sec Ao V2 max: 235.9 cm/sec LV V1 max: 112.7 cm/sec Ao max P.3 mmHg LV V1 max P.1 mmHg Ao V2 mean: 152.2 cm/sec LV V1 mean P.0 mmHg Ao mean P.0 mmHg LV V1 mean: 80.7 cm/sec Ao V2 VTI: 40.7 cm LV V1 VTI: 22.1 cm KAYLA(I,D): 1.7 cm2 KAYLA(V,D): 1.5 cm2 SV(LVOT): 67.4 ml PA V2 max: 86.7 cm/sec TR max lilli: 188.1 cm/sec TR max P.2 mmHg Interpretation Summary Moderate concentric left ventricular hypertrophy. The estimated ejection fraction is 65 %. Stage 1 diastolic dysfunction. Trivial tricuspid valve insufficiency. Right ventricular systolic pressure estimated to be 19 mmHg. Stable appearing bioprosthetic aortic valve apparatus. There is no comparison study available. Ordering Physician: Dmitriy Ochoa Referring Physician: Kishor Julio Performed By: Alfonso Garcia RCS
--- NOTE | 2017-10-25 15:32 | PCM.CONS.C ---
Problem List (1) Accelerated junctional rhythm Status: Acute (2) Status post aortic valve replacement Status: Acute Reason for Consult Date of Consultation: 10/25/17 Reason for Consultation: Accelerated junctional rhythm, aortic valve replacement History of Present Illness: The patient is a 67 year old F, patient of Dr. Natalio Machuca's nondiabetic with a history of hypertension, status post aortic valve replacement at the [facility] in April 2017. Patient apparently was unable to participate in cardiac rehab until early September 2017 due to logistic issues. She has been participating in cardiac rehab without difficulty. Over the last 2 months she has been on ranitidine for sinus inflammation, as well as prednisone and amoxicillin. While the patient was at cardiac rehab today her rhythm was noted to be an accelerated junctional with a rate of around 85 bpm. The patient is asymptomatic and does not know or is aware that she is in this junctional rhythm, and denies any chest pain, angina, shortness of breath or dyspnea on exertion. She has had no fevers, chills, productive cough, presyncope or syncope. She reports that she did not have concomitant bypass surgery and did have open repair. At home she was on Lopressor 25 mg p.o. twice daily, and the ranitidine 10 mg a day. Her EKG shows junctional rhythm with a rate of around 88 bpm, no acute changes. No P waves noted. [] Past Medical History Allergies/Adverse Reactions: Allergies codeine Allergy (Verified 10/25/17 14:57) Unknown acetaminophen [From Tylenol] Adverse Reaction (Unknown, Verified 10/25/17 14:22) Vomiting environmental Allergy (Unknown, Uncoded 10/25/17 10:12) Itching poison neal, oak, tide detergent, strawberries, tomatoes. codeine Allergy (Uncoded 10/25/17 10:12) Unknown Home Medications: Ambulatory Orders Medication Instructions Recorded Aspirin [Aspirin, Baby] 162 mg PO DAILY@0800 09/04/17 Calcium Carbonate [Tums] 750 mg PO DAILY 09/04/17 Carboxymethylcellulose Sodium 15 ml OP PRN PRN 09/04/17 [Refresh Tears] Cholecalciferol (VIT D3) [Vitamin 1,000 unit PO DAILY 09/04/17 D] Ferrous Gluconate [Iron] 236 mg PO DAILY 09/04/17 Ibuprofen 400 mg PO 4X/DAY PRN 09/04/17 Metoprolol Tartrate [Lopressor 25 mg PO BID 09/04/17 (Beta Debora)] Multivitamin [Multiple Vitamins] 1 each PO DAILY 09/04/17 Sodium Chloride 0.65% [[place] Nasal 1 spray NASAL PRN PRN 09/04/17 [place]] Loratadine [Loratadine] 10 mg PO DAILY 10/25/17 Smoking Status: Never smoker Review of Systems - Review of Systems General: Denies: Fever, Night Sweats, Fatigue Cardiovascular: Denies: Chest Discomfort, Shortness of Breath, Orthopnea, PND, Peripheral Edema, Palpitations, Lightheadedness, Dizziness, Near Syncope, Syncope Respiratory: Denies: Cough, Sputum Production, Hemoptysis Gastrointestinal: Denies: Hematemesis, Hematochezia, Melena Genitourinary: Denies: Dysuria, Hematuria Skin: Denies: Rash Subjectve: Patient laying in bed, no acute distress. Objective: Vital Signs Temp Pulse Resp BP Pulse Ox 98.3 F 94 16 144/69 H 98 10/25/17 14:50 10/25/17 14:50 10/25/17 14:50 10/25/17 14:50 10/25/17 14:50 Oxygen Delivery Method Room Air Weight: 163 lb 12.8 oz Body Mass Index (BMI) 28.0 General: Awake, Alert, Oriented x 3 HEENT: PERRL, EOMI, Sclera Non Icteric Neck: Supple, Good ROM, No Lymph Node Enlargement Lungs: Clear to auscultation Cardiovascular: Regular Rhythm, Normal S1, Normal S2, No Rubs, No Gallops Murmur Murmur: Grade 2/6, Crescendo-Decrescendo Vascular: No Carotid Bruits, Normal Femoral Pulses, Normal Radial Pulses, Normal Dorsalis Pedal Pulse, Normal Posterior Tibial Pulses Abdomen: Bowel Sounds Present, Soft, Non Tender, No HSM, No Organomegaly Extremities: No Cyanosis, No Clubbing, No edema Neurological: No Focal Motor or Sensory Deficit Rhythm: EKG: As above ECHO: Pending Stress Test: Cardiac Cath: PCI: CT Surgery: Holter monitor: EPS: PPM: CXR: Chest CT Scan: Assessment/Plan #1. Accelerated junctional rhythm: Patient's accelerated junctional rhythm may be related to her recent daily use of the ranitidine 10 mg p.o. daily combined with her Lopressor 25 mg p.o. twice daily. I recommended that we discontinue her loratadine, as well as hold her beta-debora to determine if she reverts back to normal rhythm. I recommended that she undergo a 2D echo with Doppler, to determine if she has any deterioration of her LV function and to assess her pulmonary pressures and her aortic valve replacement. She has had no fevers or chills and has no outward signs of endocarditis at this time. Do not recommend obtaining blood cultures at this time. In addition I recommend anticoagulation as we are unable to determine what her atrial activity is in for stroke prevention. Would not recommend DC cardioversion at this time as she has not been on any kind of anticoagulation. If her rhythm does not normalize, she may require Eliquis therapy for 3 weeks time followed by elective synchronized DC cardioversion for heart rate control. Recommend obtaining the old records from her primary refrigerator crater Dr. Machuca to assess her coronary anatomy prior to her aortic valve replacement. Patient will require lifelong SBE prophylaxis. Recommend repeat EKG in the morning. 2. Abnormal troponin: The patient has no chest pain symptoms, and her troponin may be patient accounting representative of demand ischemia. Come in obtaining a sed rate as well as a high sensitivity CRP. Recommend ruling out for obtaining a troponin series ?3 sets. Continue baby aspirin. 2. Thank you very much for the opportunity to participate in the cardiac care of your patient. Consultation time took place between 3 PM and 3:[address] Ochoa. Code Visit Inpatient E&M: 77159 Subs Hosp L2
--- NOTE | 2017-10-25 15:43 | CON.PCM_ITS ---
Problem List (1) Accelerated junctional rhythm Status: Acute (2) Status post aortic valve replacement Status: Acute Reason for Consult Date of Consultation: 10/25/17 Reason for Consultation: Accelerated junctional rhythm, aortic valve replacement History of Present Illness: The patient is a 67 year old F, patient of Dr. Natalio Machuca's nondiabetic with a history of hypertension, status post aortic valve replacement at the [facility] in April 2017. Patient apparently was unable to participate in cardiac rehab until early September 2017 due to logistic issues. She has been participating in cardiac rehab without difficulty. Over the last 2 months she has been on ranitidine for sinus inflammation, as well as prednisone and amoxicillin. While the patient was at cardiac rehab today her rhythm was noted to be an accelerated junctional with a rate of around 85 bpm. The patient is asymptomatic and does not know or is aware that she is in this junctional rhythm, and denies any chest pain, angina, shortness of breath or dyspnea on exertion. She has had no fevers, chills, productive cough, presyncope or syncope. She reports that she did not have concomitant bypass surgery and did have open repair. At home she was on Lopressor 25 mg p.o. twice daily, and the ranitidine 10 mg a day. Her EKG shows junctional rhythm with a rate of around 88 bpm, no acute changes. No P waves noted. [] Past Medical History Allergies/Adverse Reactions: Allergies codeine Allergy (Verified 10/25/17 14:57) Unknown acetaminophen [From Tylenol] Adverse Reaction (Unknown, Verified 10/25/17 14:22) Vomiting environmental Allergy (Unknown, Uncoded 10/25/17 10:12) Itching poison neal, oak, tide detergent, strawberries, tomatoes. codeine Allergy (Uncoded 10/25/17 10:12) Unknown Home Medications: Ambulatory Orders Medication Instructions Recorded Aspirin [Aspirin, Baby] 162 mg PO DAILY@0800 09/04/17 Calcium Carbonate [Tums] 750 mg PO DAILY 09/04/17 Carboxymethylcellulose Sodium 15 ml OP PRN PRN 09/04/17 [Refresh Tears] Cholecalciferol (VIT D3) [Vitamin 1,000 unit PO DAILY 09/04/17 D] Ferrous Gluconate [Iron] 236 mg PO DAILY 09/04/17 Ibuprofen 400 mg PO 4X/DAY PRN 09/04/17 Metoprolol Tartrate [Lopressor 25 mg PO BID 09/04/17 (Beta Debora)] Multivitamin [Multiple Vitamins] 1 each PO DAILY 09/04/17 Sodium Chloride 0.65% [[place] Nasal 1 spray NASAL PRN PRN 09/04/17 [place]] Loratadine [Loratadine] 10 mg PO DAILY 10/25/17 Smoking Status: Never smoker Review of Systems - Review of Systems General: Denies: Fever, Night Sweats, Fatigue Cardiovascular: Denies: Chest Discomfort, Shortness of Breath, Orthopnea, PND, Peripheral Edema, Palpitations, Lightheadedness, Dizziness, Near Syncope, Syncope Respiratory: Denies: Cough, Sputum Production, Hemoptysis Gastrointestinal: Denies: Hematemesis, Hematochezia, Melena Genitourinary: Denies: Dysuria, Hematuria Skin: Denies: Rash Subjectve: Patient laying in bed, no acute distress. Objective: Vital Signs Temp Pulse Resp BP Pulse Ox 98.3 F 94 16 144/69 H 98 10/25/17 14:50 10/25/17 14:50 10/25/17 14:50 10/25/17 14:50 10/25/17 14:50 Oxygen Delivery Method Room Air Weight: 163 lb 12.8 oz Body Mass Index (BMI) 28.0 General: Awake, Alert, Oriented x 3 HEENT: PERRL, EOMI, Sclera Non Icteric Neck: Supple, Good ROM, No Lymph Node Enlargement Lungs: Clear to auscultation Cardiovascular: Regular Rhythm, Normal S1, Normal S2, No Rubs, No Gallops Murmur Murmur: Grade 2/6, Crescendo-Decrescendo Vascular: No Carotid Bruits, Normal Femoral Pulses, Normal Radial Pulses, Normal Dorsalis Pedal Pulse, Normal Posterior Tibial Pulses Abdomen: Bowel Sounds Present, Soft, Non Tender, No HSM, No Organomegaly Extremities: No Cyanosis, No Clubbing, No edema Neurological: No Focal Motor or Sensory Deficit Rhythm: EKG: As above ECHO: Pending Stress Test: Cardiac Cath: PCI: CT Surgery: Holter monitor: EPS: PPM: CXR: Chest CT Scan: Assessment/Plan #1. Accelerated junctional rhythm: Patient's accelerated junctional rhythm may be related to her recent daily use of the ranitidine 10 mg p.o. daily combined with her Lopressor 25 mg p.o. twice daily. I recommended that we discontinue her loratadine, as well as hold her beta-debora to determine if she reverts back to normal rhythm. I recommended that she undergo a 2D echo with Doppler, to determine if she has any deterioration of her LV function and to assess her pulmonary pressures and her aortic valve replacement. She has had no fevers or chills and has no outward signs of endocarditis at this time. Do not recommend obtaining blood cultures at this time. In addition I recommend anticoagulation as we are unable to determine what her atrial activity is in for stroke prevention. Would not recommend DC cardioversion at this time as she has not been on any kind of anticoagulation. If her rhythm does not normalize, she may require Eliquis therapy for 3 weeks time followed by elective synchronized DC cardioversion for heart rate control. Recommend obtaining the old records from her primary curb hop Dr. Machuca to assess her coronary anatomy prior to her aortic valve replacement. Patient will require lifelong SBE prophylaxis. Recommend repeat EKG in the morning. 2. Abnormal troponin: The patient has no chest pain symptoms, and her troponin may be contact center representative of demand ischemia. Come in obtaining a sed rate as well as a high sensitivity CRP. Recommend ruling out for obtaining a troponin series ?3 sets. Continue baby aspirin. 2. Thank you very much for the opportunity to participate in the cardiac care of your patient. Consultation time took place between 3 PM and 3:[address] Ochoa. Code Visit Inpatient E&M: 95260 Subs Hosp L2
--- NOTE | 2017-10-25 17:28 | PCM.HP.STD ---
Problem List (1) Generalized weakness Status: Acute (2) Accelerated junctional rhythm Status: Acute History of Present Illness Date of Admission: 10/25/17 Chief Complaint: Generalized weakness, accelerated junctional rhythm The patient is a 67 year old F was seen in the emergency room at [facility] after becoming weak while in the outpatient cardiac rehab unit. Patient denied any chest pain or shortness of breath, she denied any diaphoresis nausea or vomiting. EKG was obtained in the cardiac rehab department which showed a junctional rhythm at approximately 90 bpm, no evidence of ischemic changes were noted. Patient was directed to go to the emergency room for evaluation, evaluation in the emergency room included a chest x-ray which showed no evidence of acute disease, EKG showed an accelerated junctional rhythm at approximately 96 bpm-no evidence of ischemic changes were noted, patient's troponin was minimally elevated at 0.23, the remainder of her chemistry profile was unremarkable. Patient's white blood cell count was normal at 7, hemoglobin was slightly low at 11.9. Patient received Lovenox subcu for anticoagulation in the emergency room, this will be continued in the hospital. Patient was placed in observation status on PCU for elevated troponin and junctional rhythm, she will be seen by cardiology, she will have an echocardiogram, her metoprolol will be held. Patient underwent an aortic valve replacement with a bioprosthetic valve in April 2017, according to the patient, before her valve replacement she underwent a cardiac catheterization which showed nonocclusive coronary disease. Past Medical History Allergies codeine Allergy (Verified 10/25/17 14:57) Unknown acetaminophen [From Tylenol] Adverse Reaction (Unknown, Verified 10/25/17 14:22) Vomiting environmental Allergy (Unknown, Uncoded 10/25/17 10:12) Itching poison neal, oak, tide detergent, strawberries, tomatoes. codeine Allergy (Uncoded 10/25/17 10:12) Unknown Home Medications: Ambulatory Orders Medication Instructions Recorded Aspirin [Aspirin, Baby] 162 mg PO DAILY@0800 09/04/17 Calcium Carbonate [Tums] 750 mg PO DAILY 09/04/17 Carboxymethylcellulose Sodium 15 ml OP PRN PRN 09/04/17 [Refresh Tears] Cholecalciferol (VIT D3) [Vitamin 1,000 unit PO DAILY 09/04/17 D] Ferrous Gluconate [Iron] 236 mg PO DAILY 09/04/17 Ibuprofen 400 mg PO 4X/DAY PRN 09/04/17 Metoprolol Tartrate [Lopressor 25 mg PO BID 09/04/17 (Beta Satish)] Multivitamin [Multiple Vitamins] 1 each PO DAILY 09/04/17 Sodium Chloride 0.65% [[place] Nasal 1 spray NASAL PRN PRN 09/04/17 [place]] Loratadine [Loratadine] 10 mg PO DAILY 10/25/17 Surgical History: - - Aortic valve replacement April 2017 beef valve Psychiatric History: No pertinent psych hx ASSOCIATE History: No pertinent ASSOCIATE history Lives: Alone Smoking Status: Never smoker Tobacco Use: Non-smoker Alcohol: None Drugs: None - *Family History Maternal History Items: Cancer - Colon cancer Paternal History Items: Heart Disease Sibling History Items: Hypertension Review of Systems Constitutional: Reports: Weakness, Fatigue. Denies: Anorexia, Chills, Fever, Night Sweats, Malaise, Weight Change Eyes: Denies: Blurred vision, Cataracts, Conjunctivae Inflammation, Double vision, Drainage HEENT: Denies: Difficulty Hearing, Difficulty Swallowing, Dysphasia, Ear Pain, Eye Pain, Head Aches, Hearing Changes, Nasal bleeding, Nasal Congestion, Post Nasal Drip Cardiovascular: Denies: Chest Pain, Claudication, Chest Pressure, Chest Tightness, Edema, Heaviness, Palpitations Respiratory: Denies: Cough, Hemoptysis, Pleuritic Pain, Shortness of Breath, Shortness of breath at rest, Shortness of breath upon exertion, Sputum production Gastrointestinal: Denies: Abdominal Pain, Constipation, Diarrhea, Hematemesis, Hematochezia, Nausea, Melena, Vomiting Genitourinary: Denies: Dysuria, Frequency, Hematuria, Hesitancy, Urgency Gynecological: Denies: Breast symptoms Musculoskeletal: Denies: Foot Pain, Hand Pain, Joint Pain, Joint stiffness, Joint swelling, Joint Tenderness Skin: Denies: Dryness, Pruritis, Rash Neurological: Denies: Blurred vision, Double vision, Slurred speech, Difficulty swallowing, Focal weakness, Headaches, Incoordination, Numbness, Tingling Psychiatric: Denies: Anxiety, Depression, Homicidal Ideations, Suicidal Ideations Endocrine: Denies: Change in Body Habitus, Heat/ Cold Intolerance, Polydipsia, Polyuria Hematologic/ Lymphatic: Denies: Adenopathy, Anemia, Easy Bruising, Easy Bleeding, Petechiae, Purpura VTE Information - Inpt Only VTE Present on Admission: No VTE Mechan Device Prophylaxis: None VTE Pharm Prophylaxis ordered?: No Reason prophylaxis not ordered:: Medical Contraindication - She will be fully anticoagulated Patient Problems: Active and Suspected Problems Accelerated junctional rhythm (Acute) Status post aortic valve replacement (Acute) Generalized weakness (Acute) - Physical Exam General: Alert, Oriented x3, Cooperative, No apparent distress, Well developed, Well nourished HEENT: Atraumatic, PERRLA, EOMI, Normocephalic Oral: Moist Mucosa Neck: Supple, No JVD, Negative Carotid Bruits, No Nuchal Rigidity, Trachea Midline, Thyroid Normal Size and Texture Lungs: Clear to auscultation, Normal air movement, No rhonchi, No wheeze, No rales Cardiovascular: Regular rate, Regular Rhythm, Normal S1, Normal S2, No murmurs, No Ectopic Activity, PMI Normal, No rub noted, No Gallop Abdomen: Bowel Sounds Present, Soft, Non Tender, Non-Distended, No hernias noted Extremities: No clubbing, No cyanosis, No edema, Capillary Refill Less than 3 Seconds Skin: No rashes, No breakdown Musculoskeletal: No Tenderness to Palpation of Joints or Extremities Neurological: Cranial nerves II-XII grossly intact, Neuro grossly intact, Sensory exam intact to light touch and pain, Coordination normal Psych/Mental Status: Normal Affect, Appropriate, Alert and oriented to time, place, person, mood and affect Vital Signs Temp Pulse Resp BP Pulse Ox 98.3 F 95 16 144/69 H 98 10/25/17 14:50 10/25/17 15:33 10/25/17 14:50 10/25/17 14:50 10/25/17 14:50 Oxygen Delivery Method Room Air Weight: 74.298 kg Body Mass Index (BMI) 28.0 Laboratory Tests Past 24 Hrs 10/25/17 15:15 Troponin I 0.321 H Assessment/Plan Active and Suspected Problems Accelerated junctional rhythm (Acute) Status post aortic valve replacement (Acute) Generalized weakness (Acute) #1 accelerated junctional rhythm-patient will be placed in observation status on PCU, she will receive full anticoagulation with subcu Lovenox twice daily, her metoprolol will be held, she will be seen in consultation by cardiology, she will be monitored on telemetry. #2 elevated troponin-etiology unclear, EKG does not show any signs of ischemia or injury pattern. 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
--- NOTE | 2017-10-25 17:42 | HP.PCM_ITS ---
Problem List (1) Generalized weakness Status: Acute (2) Accelerated junctional rhythm Status: Acute History of Present Illness Date of Admission: 10/25/17 Chief Complaint: Generalized weakness, accelerated junctional rhythm The patient is a 67 year old F was seen in the emergency room at [facility] after becoming weak while in the outpatient cardiac rehab unit. Patient denied any chest pain or shortness of breath, she denied any diaphoresis nausea or vomiting. EKG was obtained in the cardiac rehab department which showed a junctional rhythm at approximately 90 bpm, no evidence of ischemic changes were noted. Patient was directed to go to the emergency room for evaluation, evaluation in the emergency room included a chest x-ray which showed no evidence of acute disease, EKG showed an accelerated junctional rhythm at approximately 96 bpm-no evidence of ischemic changes were noted, patient's troponin was minimally elevated at 0.23, the remainder of her chemistry profile was unremarkable. Patient's white blood cell count was normal at 7, hemoglobin was slightly low at 11.9. Patient received Lovenox subcu for anticoagulation in the emergency room, this will be continued in the hospital. Patient was placed in observation status on PCU for elevated troponin and junctional rhythm, she will be seen by cardiology, she will have an echocardiogram, her metoprolol will be held. Patient underwent an aortic valve replacement with a bioprosthetic valve in April 2017, according to the patient, before her valve replacement she underwent a cardiac catheterization which showed nonocclusive coronary disease. Past Medical History Allergies codeine Allergy (Verified 10/25/17 14:57) Unknown acetaminophen [From Tylenol] Adverse Reaction (Unknown, Verified 10/25/17 14:22) Vomiting environmental Allergy (Unknown, Uncoded 10/25/17 10:12) Itching poison neal, oak, tide detergent, strawberries, tomatoes. codeine Allergy (Uncoded 10/25/17 10:12) Unknown Home Medications: Ambulatory Orders Medication Instructions Recorded Aspirin [Aspirin, Baby] 162 mg PO DAILY@0800 09/04/17 Calcium Carbonate [Tums] 750 mg PO DAILY 09/04/17 Carboxymethylcellulose Sodium 15 ml OP PRN PRN 09/04/17 [Refresh Tears] Cholecalciferol (VIT D3) [Vitamin 1,000 unit PO DAILY 09/04/17 D] Ferrous Gluconate [Iron] 236 mg PO DAILY 09/04/17 Ibuprofen 400 mg PO 4X/DAY PRN 09/04/17 Metoprolol Tartrate [Lopressor 25 mg PO BID 09/04/17 (Beta Satish)] Multivitamin [Multiple Vitamins] 1 each PO DAILY 09/04/17 Sodium Chloride 0.65% [[place] Nasal 1 spray NASAL PRN PRN 09/04/17 [place]] Loratadine [Loratadine] 10 mg PO DAILY 10/25/17 Surgical History: - - Aortic valve replacement April 2017 beef valve Psychiatric History: 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 Denies: Anorexia, Chills, Fever, Night Sweats, Malaise, Weight Change Eyes: Denies: Blurred vision, Cataracts, Conjunctivae Inflammation, Double vision, Drainage HEENT: Denies: Difficulty Hearing, Difficulty Swallowing, Dysphasia, Ear Pain, Eye Pain, Head Aches, Hearing Changes, Nasal bleeding, Nasal Congestion, Post Nasal Drip Cardiovascular: Denies: Chest Pain, Claudication, Chest Pressure, Chest Tightness, Edema, Heaviness, Palpitations Respiratory: Denies: Cough, Hemoptysis, Pleuritic Pain, Shortness of Breath, Shortness of breath at rest, Shortness of breath upon exertion, Sputum production Gastrointestinal: Denies: Abdominal Pain, Constipation, Diarrhea, Hematemesis, Hematochezia, Nausea, Melena, Vomiting Genitourinary: Denies: Dysuria, Frequency, Hematuria, Hesitancy, Urgency Gynecological: Denies: Breast symptoms Musculoskeletal: Denies: Foot Pain, Hand Pain, Joint Pain, Joint stiffness, Joint swelling, Joint Tenderness Skin: Denies: Dryness, Pruritis, Rash Neurological: Denies: Blurred vision, Double vision, Slurred speech, Difficulty swallowing, Focal weakness, Headaches, Incoordination, Numbness, Tingling Psychiatric: Denies: Anxiety, Depression, Homicidal Ideations, Suicidal Ideations Endocrine: Denies: Change in Body Habitus, Heat/ Cold Intolerance, Polydipsia, Polyuria Hematologic/ Lymphatic: Denies: Adenopathy, Anemia, Easy Bruising, Easy Bleeding , Petechiae, Purpura VTE Information - Inpt Only VTE Present on Admission: No VTE Mechan Device Prophylaxis: None VTE Pharm Prophylaxis ordered?: No Reason prophylaxis not ordered:: Medical Contraindication - She will be fully anticoagulated Patient Problems: Active and Suspected Problems Accelerated junctional rhythm (Acute) Status post aortic valve replacement (Acute) Generalized weakness (Acute) - Physical Exam General: Alert, Oriented x3, Cooperative, No apparent distress, Well developed, Well nourished HEENT: Atraumatic, PERRLA, EOMI, Normocephalic Oral: Moist Mucosa Neck: Supple, No JVD, Negative Carotid Bruits, No Nuchal Rigidity, Trachea Midline, Thyroid Normal Size and Texture Lungs: Clear to auscultation, Normal air movement, No rhonchi, No wheeze, No rales Cardiovascular: Regular rate, Regular Rhythm, Normal S1, Normal S2, No murmurs, No Ectopic Activity, PMI Normal, No rub noted, No Gallop Abdomen: Bowel Sounds Present, Soft, Non Tender, Non-Distended, No hernias noted Extremities: No clubbing, No cyanosis, No edema, Capillary Refill Less than 3 Seconds Skin: No rashes, No breakdown Musculoskeletal: No Tenderness to Palpation of Joints or Extremities Neurological: Cranial nerves II-XII grossly intact, Neuro grossly intact, Sensory exam intact to light touch and pain, Coordination normal Psych/Mental Status: Normal Affect, Appropriate, Alert and oriented to time, place, person, mood and affect Vital Signs Temp Pulse Resp BP Pulse Ox 98.3 F 95 16 144/69 H 98 10/25/17 14:50 10/25/17 15:33 10/25/17 14:50 10/25/17 14:50 10/25/17 14:50 Oxygen Delivery Method Room Air Weight: 74.298 kg Body Mass Index (BMI) 28.0 Laboratory Tests Past 24 Hrs 10/25/17 15:15 Troponin I 0.321 H Assessment/Plan Active and Suspected Problems Accelerated junctional rhythm (Acute) Status post aortic valve replacement (Acute) Generalized weakness (Acute) #1 accelerated junctional rhythm-patient will be placed in observation status on PCU, she will receive full anticoagulation with subcu Lovenox twice daily, her metoprolol will be held, she will be seen in consultation by cardiology, she will be monitored on telemetry. #2 elevated troponin-etiology unclear, EKG does not show any signs of ischemia or injury pattern. Cardiology is following #3 coronary artery disease-according to patient's history it is nonocclusive in nature, echocardiogram will be obtained #4 valvular heart disease with beef bioprosthetic valve placement in April 2017 Code Visit OBSV E&M: 62038 Initial observation care L3
[2017-10-25 19:04] LABS: Erythrocyte Sedimentation Rate 105 mm/hr (0-30)
[2017-10-26] VITALS (7 sets, daily range): BP systolic 127–145; BP diastolic 61–84; PULSE 74–91; RESP 16; TEMP 36.6–36.8; O2SAT 97–100
--- NOTE | 2017-10-26 05:55 | EKG12_ITS ---
Test Reason : AM EKG Blood Pressure : / mmHG Vent. Rate : 080 BPM Atrial Rate : 080 BPM P-R Int : 338 ms QRS Dur : 090 ms QT Int : 414 ms P-R-T Axes : 070 068 079 degrees QTc Int : 477 ms Sinus rhythm with 1st degree A-V block Confirmed by DIANNA STEWARD, INDY ([id number]), video effects editor DEE DEE DELEON ([id number]) on 11/01/2017 2:55:24 PM Referred By: DR LOPEZ Confirmed By:INDY BUSTAMANTE MD
[2017-10-26] MEDS: Aspirin 81 MG TAB.CHEW 162 MG PO (09:17)
--- NOTE | 2017-10-26 09:26 | PCM.PN.CARD ---
Subjectve: Patient feeling much better today, and rhythm has reverted back to normal sinus rhythm with first-degree AV block after the loratadine and lopressor have been held. Objective: Vital Signs Temp Pulse Resp BP Pulse Ox 98.1 F 91 16 127/61 H 99 10/26/17 08:50 10/26/17 08:50 10/26/17 08:50 10/26/17 08:50 10/26/17 08:50 Oxygen Delivery Method Room Air Weight: 163 lb 12.8 oz Body Mass Index (BMI) 28.0 General: Awake, Alert, Oriented x 3 HEENT: PERRL, EOMI, Sclera Non Icteric Neck: Supple, Good ROM, No Lymph Node Enlargement Lungs: Clear to auscultation Cardiovascular: Regular Rhythm, Normal S1, Normal S2, No Rubs, No Gallops Murmur Murmur: Grade 2/6, Crescendo-Decrescendo Vascular: No Carotid Bruits, Normal Femoral Pulses, Normal Radial Pulses, Normal Dorsalis Pedal Pulse, Normal Posterior Tibial Pulses Abdomen: Bowel Sounds Present, Soft, Non Tender, No HSM, No Organomegaly Extremities: No Cyanosis, No Clubbing, No edema Neurological: No Focal Motor or Sensory Deficit 10/25/17 15:15: Troponin I 0.321 H 10/25/17 18:10: Troponin I 0.276 H Rhythm: EKG: ECHO: Stress Test: Cardiac Cath: PCI: CT Surgery: Holter monitor: EPS: PPM: CXR: Chest CT Scan: Medical Necessity - Tobacco Use Smoking Status: Never smoker Tobacco Use: Non-smoker Assessment/Plan #1. Accelerated junctional rhythm: Patient's accelerated junctional rhythm may be related to her recent daily use of the ranitidine 10 mg p.o. daily combined with her Lopressor 25 mg p.o. twice daily. I recommended that we discontinue her loratadine, as well as hold her beta-debroa to determine if she reverts back to normal rhythm. I recommended that she undergo a 2D echo with Doppler, to determine if she has any deterioration of her LV function and to assess her pulmonary pressures and her aortic valve replacement. Her echo is still pending. Assuming that there are no issues with her echo, she may be able to go home today now that she is reverted back to normal sinus rhythm with first-degree AV block. She has had no fevers or chills and has no outward signs of endocarditis at this time. Do not recommend obtaining blood cultures at this time. Patient has reverted back to normal sinus rhythm with first-degree AV block. Recommend discontinuation of the ranitidine, and holding her beta-debora until she returns to cardiac rehab. If the patient has further episodes of junctional arrhythmia while off of beta-debora therapy and loratadine therapy, she may require evaluation of dual-chamber pacemaker. Recommend obtaining the old records from her primary wet pour supervisor Dr. Machuca to assess her coronary anatomy prior to her aortic valve replacement. Patient will require lifelong SBE prophylaxis. Repeat EKG this morning shows normal sinus rhythm with first-degree AV block. Echo is pending. 2. Abnormal troponin: The patient has no chest pain symptoms, and her troponin may be customer care representative of demand ischemia. Patient's troponins were weakly positive, and she reportedly had normal coronary arteries per her history. Her at bedtime CRP is elevated indicating some kind of inflammation. Will await the echocardiogram to determine if she has any pericardial effusion and if so she may require ibuprofen therapy going forward. 2. Thank you very much for the opportunity to participate in the cardiac care of your patient. Code Visit Inpatient E&M: 37504 Subs Hosp L2
--- NOTE | 2017-10-26 09:30 | PN.CARD_ITS ---
Subjectve: Patient feeling much better today, and rhythm has reverted back to normal sinus rhythm with first-degree AV block after the loratadine and lopressor have been held. Objective: Vital Signs Temp Pulse Resp BP Pulse Ox 98.1 F 91 16 127/61 H 99 10/26/17 08:50 10/26/17 08:50 10/26/17 08:50 10/26/17 08:50 10/26/17 08:50 Oxygen Delivery Method Room Air Weight: 163 lb 12.8 oz Body Mass Index (BMI) 28.0 General: Awake, Alert, Oriented x 3 HEENT: PERRL, EOMI, Sclera Non Icteric Neck: Supple, Good ROM, No Lymph Node Enlargement Lungs: Clear to auscultation Cardiovascular: Regular Rhythm, Normal S1, Normal S2, No Rubs, No Gallops Murmur Murmur: Grade 2/6, Crescendo-Decrescendo Vascular: No Carotid Bruits, Normal Femoral Pulses, Normal Radial Pulses, Normal Dorsalis Pedal Pulse, Normal Posterior Tibial Pulses Abdomen: Bowel Sounds Present, Soft, Non Tender, No HSM, No Organomegaly Extremities: No Cyanosis, No Clubbing, No edema Neurological: No Focal Motor or Sensory Deficit 10/25/17 15:15: Troponin I 0.321 H 10/25/17 18:10: Troponin I 0.276 H Rhythm: EKG: ECHO: Stress Test: Cardiac Cath: PCI: CT Surgery: Holter monitor: EPS: PPM: CXR: Chest CT Scan: Medical Necessity - Tobacco Use Smoking Status: Never smoker Tobacco Use: Non-smoker Assessment/Plan #1. Accelerated junctional rhythm: Patient's accelerated junctional rhythm may be related to her recent daily use of the ranitidine 10 mg p.o. daily combined with her Lopressor 25 mg p.o. twice daily. I recommended that we discontinue her loratadine, as well as hold her beta-debora to determine if she reverts back to normal rhythm. I recommended that she undergo a 2D echo with Doppler, to determine if she has any deterioration of her LV function and to assess her pulmonary pressures and her aortic valve replacement. Her echo is still pending. Assuming that there are no issues with her echo, she may be able to go home today now that she is reverted back to normal sinus rhythm with first- degree AV block. She has had no fevers or chills and has no outward signs of endocarditis at this time. Do not recommend obtaining blood cultures at this time. Patient has reverted back to normal sinus rhythm with first-degree AV block. Recommend discontinuation of the ranitidine, and holding her beta-debora until she returns to cardiac rehab. If the patient has further episodes of junctional arrhythmia while off of beta-debora therapy and loratadine therapy, she may require evaluation of dual-chamber pacemaker. Recommend obtaining the old records from her primary phlebotomy director Dr. Machuca to assess her coronary anatomy prior to her aortic valve replacement. Patient will require lifelong SBE prophylaxis. Repeat EKG this morning shows normal sinus rhythm with first-degree AV block. Echo is pending. 2. Abnormal troponin: The patient has no chest pain symptoms, and her troponin may be access service representative of demand ischemia. Patient's troponins were weakly positive, and she reportedly had normal coronary arteries per her history. Her at bedtime CRP is elevated indicating some kind of inflammation. Will await the echocardiogram to determine if she has any pericardial effusion and if so she may require ibuprofen therapy going forward. 2. Thank you very much for the opportunity to participate in the cardiac care of your patient. Code Visit Inpatient E&M: 96997 Subs Hosp L2
--- NOTE | 2017-10-26 14:08 | CHAPLAIN ---
Type of Pastoral Visit _x__ Initial Visit ___ Follow-up Visit ___ On-call Visit ___ General Patient Visit ___ Spiritual Assessment ___ Family Conference ___ Bereavement ___ Rapid Response ___ Code Blue ___ Other (describe below) Pastoral Care Referral From _x__ Patient ___ Family ___ Nurse ___ Physician ___ Instructional Technology Facilitator ___ Setup Technician ___ Other (describe below) Sacrament/Intervention ___ Active listening ___ Anointing ___ Anglican ___ Bereavement ___ Communion ___ Susanne exploration ___ ___ Life review ___ Prayer ___ Reconciliation ___ Sacrament of Sick _x__ Supportive presence ___ Wedding ___ Other (describe below) Pastoral Comments patient had good news given to her and she is thankful to be heading home later today
--- NOTE | 2017-10-26 16:41 | DCINST_ITS ---
- Discharge Diagnoses Current Active Problems: Current Active and Chronic Problems Accelerated junctional rhythm (Acute) Status post aortic valve replacement (Acute) Generalized weakness (Acute) You will use the following diet at home:: No restrictions Your food should be the consistency of: Regular Your liquids should be the consistency of: Regular/Thin Discharge Activity: Return to Normal Activity Weight Bearing Status: Full weight bearing Additional Instructions: Take Benadryl for allergy or Zyrtec for allergy Allergies/Adverse Reactions: Allergies codeine Allergy (Verified 10/25/17 14:57) Unknown acetaminophen [From Tylenol] Adverse Reaction (Unknown, Verified 10/25/17 14:22) Vomiting environmental Allergy (Unknown, Uncoded 10/25/17 10:12) Itching poison neal, oak, tide detergent, strawberries, tomatoes. codeine Allergy (Uncoded 10/25/17 10:12) Unknown Medications to take at Discharge Aspirin [Aspirin, Baby] 162 mg PO DAILY@0800 09/04/17 Calcium Carbonate [Tums] 750 mg PO DAILY 09/04/17 Carboxymethylcellulose Sodium [Refresh Tears] 15 ml OP PRN PRN 09/04/17 Cholecalciferol (VIT D3) [Vitamin D3] 1,000 unit PO DAILY 09/04/17 Ferrous Gluconate [Iron] 236 mg PO DAILY 09/04/17 Ibuprofen 400 mg PO 4X/DAY PRN 09/04/17 Multivitamin [Multiple Vitamins] 1 each PO DAILY 09/04/17 Sodium Chloride 0.65% [[place] Nasal [place]] 1 spray NASAL PRN PRN 09/04/17 Primary Care Physician: Erik Palafox MD [Primary Care Provider] - Please follow up with your Primary Care Physician in: in 2 weeks Please Follow Up With: Kishor Julio MD When: in 7-10 days
--- NOTE | 2017-10-27 16:53 | PCM.DC.SUM ---
Discharge Date and Diagnosis Date of Admission: 10/25/17 Date of Discharge: 10/26/17 - Primary Discharge Diagnosis #1 accelerated junctional rhythm #2 prolonged first-degree AV block #3 aortic valvular heart disease with bioprosthetic aortic valve implantation April 2017 #4 nonocclusive coronary artery disease #5 elevated troponin-not felt to be a non-STEMI Hospital Course and Treatment Operations: None Procedures: 2-D Echocardiogram Summary of Care Provided: The patient is a 67 year old F who was seen in the emergency room at [facility] after being sent from cardiac rehab due to complaints of extreme weakness. She was noted in the cardiac rehab department to have an accelerated junctional rhythm at approximately 90 bpm, workup in the emergency room included labs which showed a mildly elevated troponin, EKG showed what appeared to be an accelerated junctional rhythm at 95 bpm, chest x-ray was unremarkable. Patient was placed in observation status on PCU, she was seen in consultation by cardiology who recommended discontinuation of her beta-debora and her home Claritin, echocardiogram was obtained which showed a normal EF of 65%, additional troponins were elevated at 0.32 and 0.27. Patient was not felt to have had a non-STEMI. Patient's sed rate was elevated at 105 and her C-reactive protein was elevated at 44.3 but the significance of these 2 findings were unknown. Later on in the afternoon of the patient's day of admission, she was noted to be in a prolonged first-degree AV block, EKGs the following day on 10/26/17 also showed a normal sinus rhythm with a prolonged first-degree AV block. Patient was asymptomatic. On 10/26/17, patient was seen and examined, she was felt to be in stable condition for discharge home. I contacted her back digger operator Dr. Julio and discussed the case with him. Discharge Activity: Return to Normal Activity Weight Bearing Status: Full weight bearing Home Medications: Medications to take at Discharge Aspirin [Aspirin, Baby] 162 mg PO DAILY@0800 09/04/17 Calcium Carbonate [Tums] 750 mg PO DAILY 09/04/17 Carboxymethylcellulose Sodium [Refresh Tears] 15 ml OP PRN PRN 09/04/17 Cholecalciferol (VIT D3) [Vitamin D3] 1,000 unit PO DAILY 09/04/17 Ferrous Gluconate [Iron] 236 mg PO DAILY 09/04/17 Ibuprofen 400 mg PO 4X/DAY PRN 09/04/17 Multivitamin [Multiple Vitamins] 1 each PO DAILY 09/04/17 Sodium Chloride 0.65% [[place] Nasal [place]] 1 spray NASAL PRN PRN 09/04/17 Primary Care Physician: Erik Palafox MD [Primary Care Provider] - Please follow up with your Primary Care Physician in: in 2 weeks Please Follow Up With: Kishor Julio MD When: in 7-10 days Disposition: Home Minutes spent on discharge:: 25 Patient Condition:: Stable Medical Necessity - Tobacco Use Smoking Status: Never smoker Tobacco Use: Non-smoker Meaningful Use Info Meaningful Use Diagnoses (Choose all that apply): None applicable Code Visit OBSV E&M: 94213 Observation care discharge
--- NOTE | 2017-10-27 16:59 | DS.PCM_ITS ---
Discharge Date and Diagnosis Date of Admission: 10/25/17 Date of Discharge: 10/26/17 - Primary Discharge Diagnosis #1 accelerated junctional rhythm #2 prolonged first-degree AV block #3 aortic valvular heart disease with bioprosthetic aortic valve implantation April 2017 #4 nonocclusive coronary artery disease #5 elevated troponin-not felt to be a non-STEMI Hospital Course and Treatment Operations: None Procedures: 2-D Echocardiogram Summary of Care Provided: The patient is a 67 year old F who was seen in the emergency room at [facility] after being sent from cardiac rehab due to complaints of extreme weakness. She was noted in the cardiac rehab department to have an accelerated junctional rhythm at approximately 90 bpm, workup in the emergency room included labs which showed a mildly elevated troponin, EKG showed what appeared to be an accelerated junctional rhythm at 95 bpm, chest x-ray was unremarkable. Patient was placed in observation status on PCU, she was seen in consultation by cardiology who recommended discontinuation of her beta-debora and her home Claritin, echocardiogram was obtained which showed a normal EF of 65%, additional troponins were elevated at 0.32 and 0.27. Patient was not felt to have had a non-STEMI. Patient's sed rate was elevated at 105 and her C- reactive protein was elevated at 44.3 but the significance of these 2 findings were unknown. Later on in the afternoon of the patient's day of admission, she was noted to be in a prolonged first-degree AV block, EKGs the following day on 10/26/17 also showed a normal sinus rhythm with a prolonged first-degree AV block. Patient was asymptomatic. On 10/26/17, patient was seen and examined, she was felt to be in stable condition for discharge home. I contacted her clinical informatics specialist Dr. Julio and discussed the case with him. Discharge Activity: Return to Normal Activity Weight Bearing Status: Full weight bearing Home Medications: Medications to take at Discharge Aspirin [Aspirin, Baby] 162 mg PO DAILY@0800 09/04/17 Calcium Carbonate [Tums] 750 mg PO DAILY 09/04/17 Carboxymethylcellulose Sodium [Refresh Tears] 15 ml OP PRN PRN 09/04/17 Cholecalciferol (VIT D3) [Vitamin D3] 1,000 unit PO DAILY 09/04/17 Ferrous Gluconate [Iron] 236 mg PO DAILY 09/04/17 Ibuprofen 400 mg PO 4X/DAY PRN 09/04/17 Multivitamin [Multiple Vitamins] 1 each PO DAILY 09/04/17 Sodium Chloride 0.65% [[place] Nasal [place]] 1 spray NASAL PRN PRN 09/04/17 Primary Care Physician: Erik Palafox MD [Primary Care Provider] - Please follow up with your Primary Care Physician in: in 2 weeks Please Follow Up With: Kishor Julio MD When: in 7-10 days Disposition: Home Minutes spent on discharge:: 25 Patient Condition:: Stable Medical Necessity - Tobacco Use Smoking Status: Never smoker Tobacco Use: Non-smoker Meaningful Use Info Meaningful Use Diagnoses (Choose all that apply): None applicable Code Visit OBSV E&M: 60149 Observation care discharge
== END 2017-10-26 16:35 | disposition home or self-care (01) ==
LOC: ED 13:40 → PCU 13:52
PROVIDERS: Internal Medicine Cardiovascular Disease; Admitting Provider Internal Medicine; Emergency Provider Emergency Medicine; Family Provider Family Medicine; PCP Family Medicine; Visit Provider Internal Medicine
DX: I49.8 Other specified cardiac arrhythmias (principal); I10 Essential (primary) hypertension; Z95.2 Presence of prosthetic heart valve; Z79.899 Other long term (current) drug therapy; Z79.82 Long term (current) use of aspirin; I44.0 Atrioventricular block, first degree; R94.31 Abnormal electrocardiogram [ECG] [EKG]; I25.10 Atherosclerotic heart disease of native coronary artery without angina pectoris
CPT/HCPCS: 36415; 71046; 80048; 84484; 85025; 85652; 86141; 93005; 93306; 93798; 96372; 99218; 99285; A4216; G0378

== ENCOUNTER 2017-11-01 09:15 | Outpatient (RCR) | payer MEDICARE, SELFPAY ==
[2017-10-03 01:03] VITALS: BP 128/66; BP 180/88
--- NOTE | 2017-10-25 09:22 | EKG12_ITS ---
Test Reason : Blood Pressure : / mmHG Vent. Rate : 088 BPM Atrial Rate : 088 BPM P-R Int : 000 ms QRS Dur : 104 ms QT Int : 420 ms P-R-T Axes : 000 064 055 degrees QTc Int : 508 ms Accelerated Junctional rhythm Septal infarct , age undetermined Abnormal ECG Confirmed by DIANNA STEWARD, INDY ([id number]), non linear editor DEE DEE DELEON ([id number]) on 10/27/2017 10:51:26 AM Referred By: Kishor Julio Confirmed By:INDY BUSTAMANTE MD
== END 2017-11-02 23:59 ==
LOC: CR 09:15
PROVIDERS: Family Provider Family Medicine; PCP Family Medicine; Visit Provider Internal Medicine Cardiovascular Disease
DX: Z95.2 Presence of prosthetic heart valve (principal)
CPT/HCPCS: 93005; 93798

== ENCOUNTER → 2017-11-01 12:03 | Outpatient (CLI) | payer MEDICARE, SELFPAY | PROVIDERS: Family Provider Family Medicine; PCP Family Medicine; Visit Provider Internal Medicine Cardiovascular Disease | DX: I21.4 Non-ST elevation (NSTEMI) myocardial infarction (principal); I44.0 Atrioventricular block, first degree; Z95.2 Presence of prosthetic heart valve | CPT/HCPCS: 84484; 93798 ==

== ENCOUNTER 2017-12-01 09:15 | Outpatient (RCR) | payer MEDICARE, SELFPAY ==
[2017-11-03 00:53] VITALS: BP 128/66; BP 180/88
--- NOTE | 2017-11-24 14:05 | PCM.CR.ITP ---
General Information - Education/Goals Individual Counselin-Day Assessment: Overweight/Obesity Cardiac Rehabilitation Goals: 1. Maintain the individual as the primary focus of care. 2. To improve the patient's quality of life. 3. Identification of cardiac risk factors and provide cardiac risk factor management. 4. Enhance the psychosocial status of the patient. 5. Reconditioning enough to allow the patient to resume customary activities. 6. Control symptoms of cardiac disease Scale for measuring improvement of personal goals: Enter appropriate number in Comments. 2 = Unchanged. 3 = Slightly Better. 4 = Moderate Improvement. 5 = Met my Goal Personal Goals: Discharge Reassessment: Improve energy level, Participate in home exercise program, Get back to work, or to resume activities faster, Improve knowledge of cardiac disease, Improve muscle strength and endurance Exercise - 90-Day Assessment - Visit Date of Eval: 11/24/17 Session #:: 28 - Stages of Change Stages of Change:: Action - Exercise Prescription Mode:: Treadmill, Airdyne, NuStep Frequency (x/week): 3 Duration:: 30 METs: 4.3 Target Heart Rate:: 114-122 max 133 - Hypertension Resting Blood Pressure:: 130/76 Peak Exercise Blood Pressure:: 202/80 Medication Changes:: Yes - off beta debora and claritin - Intervention Home Exercise/Activity Goal:: Sitting Time <3 hrs/day - Education Goals:: Warm-up, RPE ROBIN Scale, S/S, Safe Exercise, Self-Monitoring - Exercise Program Goals Exercise Program Goals: Aerobic Activity >30 min, B/P <130/80 Nutrition - 90-Day Assessment - Program Goals Nutrition Program Goals: LDL <70. Total Cholesterol <200. HDL >45. Triglycerides <150. HgbA1C <7%. BMI <25 - Visit Date of Eval: 11/24/17 - Stages of Change Stages of Change:: Action - Lipids Has the patient seen the dietitian?: No - Weight Management Weight:: 75.296 kg - Intervention Referral to dietitian:: No Referral to Diabetic Clinic:: No Will attend diet classes:: Yes - Education Attended class for:: Signs & symptoms of hypoglycemia, Signs & symptoms of hyperglycemia, Relate diabetes to coronary artery disease, Healthy eating Tobacco - Initial Assessment - Program Goals Tobacco Program Goals: Complete smoking cessation. Attend education classes. Improve Knowledge Test score - Learning Barriers Learning Barriers: Ready to Learn Tobacco - 90-Day Assessment - Program Goals Tobacco Program Goals: Complete smoking cessation. Attend education classes. Improve Knowledge Test score - Stage of Change Stages of Change:: Action - Learning Barriers Learning Barriers: Participates in education - Family Support Do you have family support?: Yes - Tobacco Use Tobacco Use: Non-smoker Do you use smokeless tobacco?: No - Intervention Smoking Cessation Referral:: No Individual Education/Counseling:: No Education Schedule Given:: Yes - Education Attended class for:: Tobacco triggers, Coronary artery disease, Risk factors, Sexuality, Medical compliance, Cardiac A&P, Angina signs & symptoms Psychosocial - Initial Assess - Target Goals Target Goals: Assess presence or absence of depression. Using a valid screening tool, maximizes coping skills. Positive support system - Psychosocial Test Tool Used:: HANDS Depression Questionnaire - Assistive Devices Fall Risk Assessed:: Yes Psychosocial - 90-Day Assess - Target Goals Target Goals: Assess presence or absence of depression. Using a valid screening tool, maximizes coping skills. Positive support system - Stages of Change Stages of Change:: Action - Psychosocial Test Tool Used:: HANDS Depression Questionnaire - Intervention PS - Interventions: Yes Attend Stress Management Classes, Yes Uses Stress Management Skills, No Referral to Mental Health, No Referral to [facility] Case Management, No Referral to Physician - Education Attended classes for:: Coping techniques, Signs & symptoms of depression, Stress management, Relaxation techniques - Assistive Devices Assistive Devices:: None Fall Risk Assessed:: Yes Patient Health Questionnaire 90-Day Re-eval Assessment 1. Little interest or pleasure in doing things: Not at all 2. Feeling down, depressed, or hopeless: Not at all 3. Trouble falling or staying asleep, or sleeping too much: Not at all 4. Feeling tired or having little energy: Not at all 5. Poor appetite or overeating: Not at all 6. Feeling bad about yourself -- or that you are a failure or have let yourself or your family down: Not at all 7. Trouble concentrating on things, such as reading the newspaper or watching television: Not at all 8. Moving or speaking so slowly that other people could have noticed. Or the opposite - being so fidgety or restless that you have been moving around a lot more than usual: Not at all 9. Thoughts that you would be better off , or of hurting yourself in some way: Not at all How difficult have these problems made it for you to do your work, take care of things at home, or get along with other people?: Not difficult at all Total Score: 0 Self-Efficacy 90-Day Re-eval Assessment We would like to know how confident you are in doing certain activities. Please select your confidence level for:: Select your confidence level for the following using the scale 1-10 where 1 is not at all confident and 10 is totally confident. Your score is the average of all 6 responses. Fatigue: How confident are you that you can keep the fatigue caused by your disease from interfering with the things you want to do? Select Number: 7 Physical Discomfort or Pain: How confident are you that you can keep the physical discomfort or pain of your disease from interfering with the things you want to do? Select Number: 7 Emotional Distress: How confident are you that you can keep the emotional distress caused by your disease from interfering with the things you want to do? Select Number: 7 Other Symptoms or Health Problems: How confident are you that you can keep other symptoms or health problems from interfering with the things you want to do? Select Number: 7 Different Tasks and Activities: How confident are you that you can do the different tasks and activities needed to manage your health condition so as to reduce your need to see a doctor? Select Number: 7 Medication: How confident are you that you can do things other than just taking medication to reduce how much your illness affects your everyday life? Select Number: 7 Total Score:: 7
[2017-11-24 14:10] VITALS: BP 130/76; BP 202/80
== END 2017-12-02 23:59 ==
LOC: CR 09:15
PROVIDERS: Family Provider Family Medicine; PCP Family Medicine; Visit Provider Internal Medicine Cardiovascular Disease
DX: Z95.2 Presence of prosthetic heart valve (principal)
CPT/HCPCS: 93798

== ENCOUNTER 2017-12-15 09:15 | Outpatient (RCR) | payer MEDICARE, SELFPAY ==
[2017-12-03 00:46] VITALS: BP 130/76; BP 202/80
[2017-12-26 12:42] VITALS: BP 140/68; BP 172/82
--- NOTE | 2017-12-26 12:42 | CR.ITP_ITS ---
Exercise - Final/Discharge - Visit Date of Eval: 12/26/17 - Patient completed her program on 12/15/2017 Session #:: 36 - Stages of Change Stages of Change:: Action - Exercise Prescription Mode:: Treadmill, Airdyne, NuStep Frequency (x/week): 3 Duration:: 30 METs: 4.2 Target Heart Rate:: 122-130 Max HR 116 - Hypertension Do any of the following apply?: Yes Resting Blood Pressure:: 140/68 - optimal BP 130/80 Peak Exercise Blood Pressure:: 172/82 - Intervention Home Exercise/Activity Goal:: Moderate Exercise 30 min/day x 5 days/wk - Education Goal Progress: Goal Met - Exercise Program Goals Exercise Program Goals: Aerobic Activity >30 min Nutrition - Final Assessment - Program Goals Nutrition Program Goals: LDL <70. Total Cholesterol <200. HDL >45. Triglycerides <150. HgbA1C <7%. BMI <25 - Visit Date of Eval: 12/26/17 - Stages of Change Stages of Change:: Action - Diabetes Diabetes:: No - Weight Management Height: 5 ft 4 in Weight:: 164 lb Body Fat %:: 29 - Intervention Referral to dietitian:: No Referral to Diabetic Clinic:: No Will attend diet classes:: Yes - Education Education Goal Reached?: Yes Tobacco - Initial Assessment - Program Goals Tobacco Program Goals: Complete smoking cessation. Attend education classes. Improve Knowledge Test score - Learning Barriers Learning Barriers: Ready to Learn Tobacco - Final Assessment - Program Goals Tobacco Program Goals: Complete smoking cessation. Attend education classes. Improve Knowledge Test score - Stage of Change Stages of Change:: Action - Family Support Do you have family support?: Yes - Tobacco Use Tobacco Use: Non-smoker Do you use smokeless tobacco?: No - Intervention Education Schedule Given:: Yes - Education Education Goal Reached?: Yes Psychosocial - Final Assessmen - Target Goals Target Goals: Assess presence or absence of depression. Using a valid screening tool, maximizes coping skills. Positive support system - Stages of Change Stages of Change:: Action - Psychosocial Test Tool Used:: HANDS Depression Questionnaire - Intervention PS - Interventions: Yes Attend Stress Management Classes, Yes Uses Stress Management Skills, No Referral to Mental Health, No Referral to [facility] Case Management, No Referral to Physician - Education Education Goal Reached?: Yes - Patient/Program Goal Preventative Medication(s):: Aspirin, Clopidogrel, Beta debora, Statin/lipid - Assistive Devices Assistive Devices:: None Fall Risk Assessed:: Yes Patient Health Questionnaire Discharge Assessment 1. Little interest or pleasure in doing things: Not at all 2. Feeling down, depressed, or hopeless: Not at all 3. Trouble falling or staying asleep, or sleeping too much: Several days 4. Feeling tired or having little energy: Not at all 5. Poor appetite or overeating: Several days 6. Feeling bad about yourself -- or that you are a failure or have let yourself or your family down: Not at all 7. Trouble concentrating on things, such as reading the newspaper or watching television: Not at all 8. Moving or speaking so slowly that other people could have noticed. Or the opposite - being so fidgety or restless that you have been moving around a lot more than usual: Not at all 9. Thoughts that you would be better off , or of hurting yourself in some way: Not at all How difficult have these problems made it for you to do your work, take care of things at home, or get along with other people?: Not difficult at all Total Score: 2 NEREIDA-Q SV Test - Statements CAD is a disease of the arteries in the heart: False Examples of risk factors for heart disease: True Angina is chest pain or discomfort: True The benefits of resistance training include: True Eating more meat and dairy products: False Anti-platelet medications such as aspirin are important: True The only effective way to manage stress: False An exercise warm-up slowly increases heart rate: True Prepared, processed foods usually have high sodium: True Depression is common after a heart attack: True The statin medications lower cholesterol: True To control blood pressure, lower the amount of sodium: True If someone gets chest discomfort during walking: False Transfats are partially hydrogenated vegetable oils: True Sleep apnea that is not treated increases the risk: False To control cholesterol, one should become a vegetarian: False Someone knows if he/she is exercising at the right level: True Diabetes cannot be prevented with exercise & health eating: True Stress is a large risk for heart attack: True A diet that can help lower blood pressure is rich in: True - Total Score Total Correct Responses: 19 Self-Efficacy Discharge Assessment We would like to know how confident you are in doing certain activities. Please select your confidence level for:: Select your confidence level for the following using the scale 1-10 where 1 is not at all confident and 10 is totally confident. Your score is the average of all 6 responses. Fatigue: How confident are you that you can keep the fatigue caused by your disease from interfering with the things you want to do? Select Number: 9 Physical Discomfort or Pain: How confident are you that you can keep the physical discomfort or pain of your disease from interfering with the things you want to do? Select Number: 9 Emotional Distress: How confident are you that you can keep the emotional distress caused by your disease from interfering with the things you want to do? Select Number: 9 Other Symptoms or Health Problems: How confident are you that you can keep other symptoms or health problems from interfering with the things you want to do? Select Number: 9 Different Tasks and Activities: How confident are you that you can do the different tasks and activities needed to manage your health condition so as to reduce your need to see a doctor? Select Number: 9 Medication: How confident are you that you can do things other than just taking medication to reduce how much your illness affects your everyday life? Select Number: 9 Total Score:: 9 Nutrition Survey - Nutrition Survey Instructions Scoring Instructions: Scoring is as follows: Yes = 1 points. No = 0 point. Patient score that is >/=12 is considered to be at potential nutritional risk and could benefit from a referral to a registered dietitian. - Nutrition Survey Discharge Have you lost >10 lbs over the past 2 months without trying?: No Are you following a special diet at home for diabetes, low fat, or low salt?: Yes - Low fat, low sodium, 1800 calorie cardiac diet Are you interested in meeting with a dietitian for help understanding your diet? : No Do you eat less than 3 meals a day?: No Do you eat fatty meats (banuelos, sausage, ribs, etc), fried foods, desserts, large amounts of salad dressings, margarine, butter, or cheese most days?: Yes - camron rarely now. Do you have food allergies? [Enter types in comment field]: No Do you eat in restaurants more than 3 times a week?: No Do you season food with salt, seasoning salt, or garlic salt?: No Do you used canned, boxed, frozen meals, or soups, seasoning packets?: Yes Total Score:: 3
== END 2018-01-02 23:59 ==
LOC: CR 09:15
PROVIDERS: Family Provider Family Medicine; PCP Family Medicine; Visit Provider Internal Medicine Cardiovascular Disease
DX: Z95.2 Presence of prosthetic heart valve (principal)
CPT/HCPCS: 93798

== ENCOUNTER 2018-08-18 06:44 | Emergency (ER) | payer MEDICARE, SELFPAY ==
[2018-08-18 06:46] VITALS: BP 205/96; PULSE 87; RESP 18; TEMP 36.6; O2SAT 100; BMI 29.0
[2018-08-18 07:17] LABS: Hematocrit 38.2 % (37-47); Hemoglobin 11.8 g/dl (12.0-15.0)
--- NOTE | 2018-08-18 07:19 | ED.DCSUM_ITS ---
History of Present Illness Chief Complaint: Wound Informant: Patient Onset: Hours - 1 Context: Sudden Onset - while pulling sock on Timing: Continuous Quality: continuous stream of bleeding Location: right foot Current Severity: Severe Maximum Severity: Severe Worsened by: nothing Relieved by: partially by pressure dressing that pt did herself Narrative: Patient has spontaneous significant bleeding. She feels like she lost a lot of blood and has a history of anemia, without any lightheadedness or near syncopal episodes. No other acute symptoms. She has no pain. History of varicose veins. Takes no antiplatelet or anticoagulants. - Past Medical History (1) Anemia Status: Chronic (2) Status post aortic valve replacement Status: Chronic Past Medical History - Allergies and Home Meds Allergies/Adverse Reactions: Allergies codeine Allergy (Verified 08/18/18 06:48) Unknown acetaminophen [From Tylenol] Adverse Reaction (Unknown, Verified 08/18/18 06:48) Vomiting environmental Allergy (Unknown, Uncoded 08/18/18 06:48) Itching poison neal, oak, tide detergent, strawberries, tomatoes. codeine Allergy (Uncoded 08/18/18 06:48) Unknown Primary Care Physician: Erik Palafox MD [Primary Care Provider] - As Needed Surgical History: - - Aortic valve replacement April 2017 beef valve Lives: Alone Smoking Status: Never smoker - Family History Maternal Family History: Reports: Cancer - Colon cancer Paternal Family History: Reports: Heart Disease Sibling Family History: Reports: Hypertension Review of Systems General: Denies: Chills, Fever Skin: Reports: Wounds - Bleeding Hematologic: Reports: Easy bruising, Easy bleeding Physical Exam Vital Signs/Narrative: Vital Signs Temp Pulse Resp BP Pulse Ox 08/18/18 06:46 97.9 F 87 18 205/96 H 100 Inital Vital Signs reviewed: Yes General: Well nourished, Well developed, No Acute Distress Head: Normocephalic, Atraumatic Extremities: Nontender, No edema Skin: Normal color, No rash, - - Pinpoint sized area of continuous venous oozing medial right ankle just distal to the medial malleolus, directly overlying a varicose vein. She has many varicose veins in the right lower extremity. No cords. No tenderness. There is a significant amount of blood and blood clot in the grocery bag that is wrapped around her foot. Neurological: Alert, Oriented x3, Cranial nerves II-XII grossly intact, Normal Strength, Normal Sensation Psychological: Normal affect, Normal Mood Diagnostic/Tx/Re-eval Laboratory Tests 08/18/18 Range/Units 07:10 Hgb 11.8 L (12.0-15.0) g/dl Hct 38.2 (37-47) % - Medical Decision Making With continuous point pressure on the affected area, bleeding is well c ontrolled, but does not remains when pressure is removed. I injected 0.5 cc of 1% lidocaine with epinephrine after prepping the nearby area with isopropyl alcohol, placed a small piece of Surgifoam over the area, and a small cap from a syringe over some gauze to put point pressure over the area along with an Wes wrap around it. This provided good hemostasis. Her H&H is stable. After monitoring this for half hour, her bleeding is well controlled. the cap was removed and the WES was rewrapped w/ simply some gauze over the surgifoam. Stable for discharge, instructions given and reasons to return. Procedures Procedure(s): Hemorrhage control -- see above for details. no complications. tolerated well. ED Disposition - Plan for ED Patient: Disposition: Home or Assisted Living Diagnosis: Hemorrhage of varicose veins of right lower extremity Instructions: ED Veins Varicose Referrals: Erik Palafox MD [Primary Care Provider] - As Needed
[2018-08-18 07:51] VITALS: BP 148/86; PULSE 78; RESP 16; O2SAT 100
== END 2018-08-18 07:52 | disposition home or self-care (01) ==
PROVIDERS: Emergency Provider Emergency Medicine; Family Provider Family Medicine; PCP Family Medicine
DX: I83.891 Varicose veins of right lower extremity with other complications (principal); Z79.82 Long term (current) use of aspirin; Z79.899 Other long term (current) drug therapy; Z86.2 Personal history of diseases of the blood and blood-forming organs and certain disorders involving the immune mechanism; Z95.2 Presence of prosthetic heart valve
CPT/HCPCS: 85014; 85018; 99282

== ENCOUNTER 2019-03-12 08:30 | Outpatient (RCR) | payer MEDICARE, SELFPAY ==
--- NOTE | 2019-01-30 13:46 | HP.OTEVAL ---
Patient's Visit Information JULIA DENNISON is a 68 year old F, referred to Occupational Therapy by COLETTE MARSH, with a diagnosis of right closed distal end radius fx. Date of Evaluation: 01/30/19 Occupational Therapist: Priscila Dolan, NIKIA/Maggie, CHT - Subjective Subjective: This 68 year old female was seen for OT eval with dx of right wrist fx. pt states December 20 2018 she fell outside of her home. pt state she was casted form december 20 until Jan 28 2019. pt states she is driving now and she is starting to use her right hand but continues to have limitations wth ADls and IADLs due to ROM, weakness and pain. Pt would like to return to PLOF with her daily tasks. - Pain right hand 3 Pain Intensity Range: 5 - ROM Forearm: right supination 55 left [id number] pronation is WNL Wrist: right40/ 30 left 75/75 ROM Comments: pt demo with increase difficulty forming a right composite fist-. PIP of right MF/RF 80 left 100 - Strength Boiler House Mechanic: right 10# left 38# Lateral Pinch: right 4# left 10# Tripod Pinch: right 2# left 8# - Sensation Sensation Comments: denies - Quick DASH-Disab of Arm,Shoulder& Hand Quick DASH Score: 36.3625 - Goals Goal:: PT will demo a increase in right color television console monitor strength by 30# and right lateral and tripod pinch by 3# to increase pts functional use of right UE with ADLS and IADLs by d/c Goal:: pt will demo right forearm supination to 70* or greater to return to PLOF with ADLS by D/C. pt will demo right wrist ROM increase by 15* or greater to return pt to PLOF with IADLs by d/c. Goal:: pt will report pain no greater than 1/10 with use of ADLs and IADLs by d/c - Rehabilitation General Assessment: Pt currently 6 weeks right distal radius fx. Today pt demo with a decrease in right wrist flex/ext, forearm supination. pts limited with tight composite fist, and weakness is limiting pts ind. with home mtg, yard care and other ADL tasks. pt would benefit from further skilled OT services 2x week for 6 weeks- therapy will challenge pts ROM and strength to return her to PLOF. Today pt was ed. on PROM of wrist flex/ex, forearm supination and tendon glide for digits- pt was given handout- pt demo understanding and agree to POC. Rehabilitation Potential: Excellent - Anticipated Interventions Anticipated Interventions: A/AAROM/PROM, Strengthening, Modalities, Joint Protection/Energy Conservation, Ergonomic Education - Visit Plan Frequency: 1-2x /Week Duration: 6 Weeks TEXT: Thank you for the opportunity to evaluate your patient. For Medicare and Medicare HMO plans, please review the plan of care and approve it. It will need to be FAXED BACK to us at [phone] for Medicare purposes. Please let me know if there are questions or concerns regarding this plan of care. Physician Signature: Date:
--- NOTE | 2019-03-12 08:39 | HP.OTDCSUM ---
HP - OT D/C Summary It has been my pleasure to treat JULIA DENNISON under orders from COLETTE MARSH, for the diagnosis of right closed distal end radius fx for a total of 7 visit(s). Please see the following information for a summary of their discharge status. - Overall Improvement % Improvement: 95 - Objective Objective/Function: right scientific director strength 30# left is 40#. right lateral pinch 8# left 8#. right tripod pinch 8# and left 10#. right wrist 60/45 - right forearm supination 75* WNL - Goals Patient Goals: Regain Mobility, Regain Strength, Decrease Pain, Use Hand/Wrist/Arm Normally Again, Be More Independent in ADLS Goal:: PT will demo a increase in right scientific director strength by 30# and right lateral and tripod pinch by 3# to increase pts functional use of right UE with ADLS and IADLs by d/c Goal:: pt will demo right forearm supination to 70* or greater to return to PLOF with ADLS by D/C. pt will demo right wrist ROM increase by 15* or greater to return pt to PLOF with IADLs by d/c. Goal:: pt will report pain no greater than 1/10 with use of ADLs and IADLs by d/c - Plan Plan: D/C - D/C Information Discharge Comments: pt was seen for 7 OT visits following a right wrist fx. pt has made great gains in ROM and strength and reports she has returned to her health and wellness gym and performing all her ADLs and IADLs at IND. level. pt has met goals in OT and is D/C at this time. If there are questions or concerns regarding this patient's occupational therapy, please fell free to call me at [phone]. Thank you for the referral of this patient. Sincerely, Priscila Dolan, OTR/L, CHT
== END 2019-03-12 19:00 | disposition home or self-care (01) ==
LOC: OT 08:30
PROVIDERS: Family Provider Family Medicine; PCP Family Medicine
DX: S52.501D Unspecified fracture of the lower end of right radius, subsequent encounter for closed fracture with routine healing (principal)
CPT/HCPCS: 97110; 97140; 97166; 97168

== ENCOUNTER → 2019-08-13 09:32 | Outpatient (CLI) | payer MEDICARE, SELFPAY ==
--- NOTE | 2019-08-13 09:53 | CR.ITP_ITS ---
Diagnosis - General Information Admitting Diagnosis: S/P REMOVAL CALCIFICATION NODULE ANTERIOR MITRAL VALVE LEAFLET/REPAIR Personal Learning Style:: Audio/Visual, Written Barriers to Learning: Hearing Impairment - BILATERAL HEARING AIDS, Vision Impairment Gave educational material for:: Treating Heart Disease, Emotions & Heart Disease, Stress Management & Relaxation, Sleep Disorders & Heart Disease, How The Heart Works, What it means to have Heart Disease, How Coronary Artery Disease is Diagnosed, Heart Procedures, What Heart Medications Do, Risk Factors & Modifications, Living an Active Life, Nutrition - Education/Goals Individual Counseling: Initial Assessment: Abnormal Cholesterol Levels, High Blood Pressure, Overweight/Obesity - OVERWEIGHT BMI 29 Cardiac Rehabilitation Goals: 1. Maintain the individual as the primary focus of care. 2. To improve the patient's quality of life. 3. Identification of cardiac risk factors and provide cardiac risk factor management. 4. Enhance the psychosocial status of the patient. 5. Reconditioning enough to allow the patient to resume customary activities. 6. Control symptoms of cardiac disease Personal Goals: Initial Assessment: Improve energy level, Get back to work, or to resume activities faster, Improve muscle strength and endurance, Improve diet and eating habits (eat healthier), Control risk factors (learn risk factor modification) Scale for measuring improvement of personal goals: Enter appropriate number in Comments. 2 = Unchanged. 3 = Slightly Better. 4 = Moderate Improvement. 5 = Met my Goal - Diagnosis & Disease Process Outcomes/Goals: Pt IDs own risk factors & lifestyle modifications by Session 10, Verbalizes symptoms of angina & response by session 3., Pt independently manages Plan/Interventions: Assist Pt to ID & engage in lifestyle modification to reduce CVD risk, Instruct on individual risk factors, Review symptoms of angina & emergency actions, Review secondary diagnosis & identify educational needs. - Safety Referral to Physical Therapy: No Referral to [facility] Case Management: No Fall Risk Assessed:: Yes Assistive Devices:: None Exercise - Initial Assessment - Visit Date of Eval: 08/13/19 Session #:: 0 - INITIAL EVALUATION Mets: Pre-: >5 METS for 30 minutes by discharge - Physician Prescribed Exercise Modalities: Treadmill, Rower, Airdyne, NuStep Frequency: 3x/week for 12 weeks [36 sessions] Intensity: 60-80% of age predicted maximum heart rate reserve Current METSs:: 3.5 Target Heart Rate:: 98-128 EKG Type: NORMAL SINUS RHYTHM H/O PERSISTENT ATRIAL FIBRILLATION - Outcomes & Goals Goals:: Verbalizes understanding of THR, RPE & goal METS by session 6, Documents in home exercise log/reports 30 min aerobic 5 day/wk by DC, Demonstrates accurate pulse taking by DC - Intervention & Plan Exercise Program Goals: Instruct on personal THR & RPE, Instruct on MET level & personal MET goal, Show patient to take own pulse /validate performance until accurate, Instruct on home exercise - Physical Activity Home Exercise Physical Activity - Home Exercise: Safe Exercise, Warm-up, Self-monitoring, Cool-Down, Home Exercise > 30 min Daily, Sitting Time <3 hours/daily - Outcomes & Goals Outcomes/Goals: Demonstrates correct Warm-up/exercise Cool-Down (S3) if = 2.5 METs, Verbalizes symptoms of exercise intolerance by Session 3 (S3), Demonstrate safe equipment use (S3) & follows exercise prescrition (6) - Intervention & Plan Plan/Intervention: Instruct warm-up & cool-down if exercising at > 2 METs, Instruct on symptoms of exercise intolerance & actions to take, Instruct & monitor on saf, Assess intial functional capacity & safety risk Nutrition - Initial Assessment - Program Goals Nutrition Program Goals: LDL <100 optimal. 100 - 129 Near optimal. 130 - 159 Borderline High. 160 - 189 High. Total Cholesterol <200 desirable. 200 - 239 Borderline High. >/= 240 High. HDL < 40 Low >/=60 High. Triglycerides <150 desirable. <199 optimal. VlDL 5 - 40. HgbA1C <7%. BMI <25 Patient has diagnosis of Hyperlipidemia (ICD E78)?: Yes - Visit Date of Assessment:: 08/13/19 Session #:: 0 - INITIAL EVALUATION - Cholesterol/Lipids Triglycerides (mg/dL): 0 - NO LABS SENT FROM [facility] Determine presence & major risk factors that modify LDL goal: Hypertension or hypertensive medication Outcomes/Goals: Pt IDs own risk factors & lifestyle modifications by Session 10, Verbalizes symptoms of angina & response by session 3., Pt independently manages Intervention/Plan: Instruct on personal lipid levels & lipid goals/NCEP guidelines, Instruct on cholesterol Referral to dietitian:: No - Diabetes (Other Core Measures) Diabetes Type: Not Applicable - Weight Mgt (Other Care) Not Applicable: Yes Height: 5 ft 3 in Weight:: 165 lb BMI: 29.2 Diagnosis Overweight/Obesity BMI> 30% ICD-10 E66: No Diagnosis High BMI/Morbid Obesity BMI> 35% ICD-10 Z68: No Outcomes/Goals: Pt sets, maintains & shows weight loss goal & trend during rehab Intervention/Plan: Instruct on ideal BMI & set weight loss goal w/patient, Assist pt to ID & incorporate diet changes for weight loss by S9, Encourage goal of using 250-300dcal per session for weight loss - Healthy Eating Habits Will attend diet classes:: Yes Outcomes/Goals:: Consume diet rich in vegs,fruits,whole grain/high fiber,fish,le an meat, Limit sat/trans fats,cholesterol & added salts & sugars Intervention/Plan:: Assess current eating habits - Education Gave educational materials for:: Healthy eating Medical - Initial Assessment - Visit Date of Eval: 08/13/19 Session #:: 0 - INITIAL EVALUATION - Medication Compliance Preventative Medication(s):: Aspirin, Statin/lipid, Beta debora, Warfarin/Coumadin H/O mental health issues: depression, anxiety, or addiction?: No Doesn?t believe in the benefits of treatment?: No Believes medications are unnecessary or harmful?: No Has a concern about medication side effects?: No Expresses concern over the cost of medications?: No Outcomes/Goals: Verbalizes medications,desired effect & common side effects @ DC, Pt self-reports following medication regimen, Keeps card in wallet w/medications listed by DC Interventions/plans: Instruct on medication effects & side effects, Review medication list w/patient every two weeks, Instruct importance of taking meds as ordered & assist problem solving - Tobacco Use Tobacco Use: Non-smoker - Hypertension Hypertension Diagnosis:: Hypertension ICD-10 I10 Resting Blood Pressure:: 154/70 [place] [employer] Hypertension Guidelines: [place] [employer] Hypertension Guidelines. Normal BP Less than 120/80. Elevated BP 120/80. Hyp ertension Stage 1: BP 130-139/80-89. Hypertesnion Stage 2: BP 140 or higher/90 or higher. Hypertension Crisis: BP higher than 180/120 Outcomes/Goals: Able to verbalize/achieve optimal blood pressure <130/80, Incorporates diet changes & exercise for blood pressure control by DC Interventions/plan: Instruct on optimal blood pressure, hypertension & medications, Instruct on effects of sodium, alcohol, stress, exercise &hypertension - Tobacco Cessation Referral Smoking Cessation Referral:: No Individual Education/Counseling:: No Education Schedule Given:: Yes Psychosocial - Initial Assess - VIsit Date of Eval: 08/13/19 Session #:: 0 - INITIAL EVALUATION Not Applicable: Yes History of previous Mental disease:: No - Target Goals Target Goals: Assess presence or absence of depression. Using a valid screening tool, maximizes coping skills. Positive support system - Psychosocial Test Tool Used:: Chrissie Hernandez QOL Cardiac, PHQ-9 Questionnaire phq-9 Severity: Severity. 1-4 Minimal Depression. 5-9 Mild Depression. 10-14 Moderate Depression. 15-19 Moderately Sever Depression. 20-27 Severe Depression. Rule: See PHQ-9 Score: 2 Total Score:: 2 - Referral to Behavioral Health PS - Interventions: Yes Attend Stress Management Classes, No Referral to Behavioral Health if PHQ-9 score >9:, No Referral to [facility], No Referral to Physician if PHQ-9 if score is 5-9: - Outcomes/Goals: See list Psychosocial Outcomes/Goals:: ID's personal stressors & 2 strategies to manage stress by discharge - Intervention/Plan: See List Interventions/Plan:: Instruct patient to recognize signs & symptoms of depression, Instruct patient to recog Patient Health Questionnaire Initial Assessment 1. Little interest or pleasure in doing things: Several days 2. Feeling down, depressed, or hopeless: Not at all 3. Trouble falling or staying asleep, or sleeping too much: Not at all 4. Feeling tired or having little energy: Several days 5. Poor appetite or overeating: Not at all 6. Feeling bad about yourself -- or that you are a failure or have let yourself or your family down: Not at all 7. Trouble concentrating on things, such as reading the newspaper or watching television: Not at all 8. Moving or speaking so slowly that other people could have noticed. Or the opposite - being so fidgety or restless that you have been moving around a lot more than usual: Not at all 9. Thoughts that you would be better off , or of hurting yourself in some way: Not at all How difficult have these problems made it for you to do your work, take care of things at home, or get along with other people?: Not difficult at all Total Score: 2 NEREIDA-Q SV Test - Statements CAD is a disease of the arteries in the heart: False Examples of risk factors for heart disease: True Angina is chest pain or discomfort: True The benefits of resistance training include: True Eating more meat and dairy products: False Anti-platelet medications such as aspirin are important: True The only effective way to manage stress: False An exercise warm-up slowly increases heart rate: I Don't Know Prepared, processed foods usually have high sodium: True Depression is common after a heart attack: True The statin medications lower cholesterol: True To control blood pressure, lower the amount of sodium: True If someone gets chest discomfort during walking: False Transfats are partially hydrogenated vegetable oils: I Don't Know Sleep apnea that is not treated increases the risk: I Don't Know To control cholesterol, one should become a vegetarian: False Someone knows if he/she is exercising at the right level: True Diabetes cannot be prevented with exercise & health eating: I Don't Know Stress is a large risk for heart attack: True A diet that can help lower blood pressure is rich in: True - Total Score Total Correct Responses: 16 Self-Efficacy Initial Assessment We would like to know how confident you are in doing certain activities. Please select your confidence level for:: Select your confidence level for the following using the scale 1-10 where 1 is not at all confident and 10 is totally confident. Your score is the average of all 6 responses. Fatigue: How confident are you that you can keep the fatigue caused by your disease from interfering with the things you want to do? Select Number: 9 Physical Discomfort or Pain: How confident are you that you can keep the physical discomfort or pain of your disease from interfering with the things you want to do? Select Number: 9 Emotional Distress: How confident are you that you can keep the emotional distress caused by your disease from interfering with the things you want to do? Select Number: 9 Other Symptoms or Health Problems: How confident are you that you can keep other symptoms or health problems from interfering with the things you want to do? Select Number: 9 Different Tasks and Activities: How confident are you that you can do the different tasks and activities needed to manage your health condition so as to reduce your need to see a doctor? Select Number: 9 Medication: How confident are you that you can do things other than just taking medication to reduce how much your illness affects your everyday life? Select Number: 8 Total Score:: 8 Nutrition Survey - Nutrition Survey Instructions Scoring Instructions: Scoring is as follows: Yes = 1 points. No = 0 point. Patient score that is >/=12 is considered to be at potential nutritional risk and could benefit from a referral to a registered dietitian. - Nutrition Survey Initial Have you lost >10 lbs over the past 2 months without trying?: No Are you following a special diet at home for diabetes, low fat, or low salt?: Yes Are you interested in meeting with a dietitian for help understanding your diet?: No Do you eat less than 3 meals a day?: No Do you eat fatty meats (banuelos, sausage, ribs, etc), fried foods, desserts, large amounts of salad dressings, margarine, butter, or cheese most days?: No Do you have food allergies? [Enter types in comment field]: Yes - STRAWBERRIES, HORSERADISH Do you eat in restaurants more than 3 times a week?: No Do you season food with salt, seasoning salt, or garlic salt?: No Do you used canned, boxed, frozen meals, or soups, seasoning packets?: No Total Score:: 2
--- NOTE | 2019-08-13 09:53 | PCM.CR.HP2 ---
CR - History & Physical - General Arrival date:: 08/13/19 Arrival time:: 09:56 Date of Referral:: 05/17/19 Date of CR Evaluation:: 08/13/19 Referring Physician: Dr. Zaida Villarreal MD [facility] Primary Diagnosis: S/P removal of calcified nodule of anterior mitral valve leaflet - History of Present Cardiac Event Onset Date: Enter Onset Date of cardiac illnesses in Comment field below Heart valve replacement or repair:: Yes - Mitral Valve Repair 06/18/2019 - Medications Home Medications: Ambulatory Orders Medication Instructions Recorded Aspirin [Aspirin, Baby] 162 mg PO DAILY@0800 09/04/17 Cholecalciferol (VIT D3) [Vitamin 1,000 unit PO DAILY 09/04/17 D3] Ferrous Gluconate [Iron] 236 mg PO DAILY 09/04/17 Multivitamin [Multiple Vitamins] 1 each PO DAILY 09/04/17 Metoprolol Tartrate 25 mg PO TID 08/18/18 Fluticasone 0.05% [Flonase Nasal 1 spray NASAL DAILY PRN 08/13/19 [place]] Sodium Chloride 0.65% [Milam Nasal 08/13/19 [place]] - Allergies Allergies/Adverse Reactions: Allergies codeine Allergy (Verified 08/18/18 06:48) Unknown environmental Allergy (Unknown, Uncoded 08/18/18 06:48) Itching poison neal, oak, tide detergent, strawberries, tomatoes. codeine Allergy (Uncoded 08/18/18 06:48) Unknown - Sleep Disorder Evaluation Hx of Sleep Apnea: No Do you snore loudly (louder than talking or can be heard through closed doors)?: No Do you often feel tired/ fatigued/ sleepy during daytime?: No Has anyone observed you stop breathing during sleep?: No History of Hypertension (for STOP score): Yes STOP Results: Negative Advanced Directives - Advanced Directives Power of Programming Engineer: Yes Living Will: Yes Advance Directives Information Provided: No Advance Directives on File: Yes - sHOULD BE ON FILE, BUT IF NOT CAN BRING THEM IN. DNR Order?:: No - MOLST See MOLST form: No Past Medical History - Past Medical Illness Medical History: Past Medical History (Last Updated 08/13/19 @ 10:09 by Red Unger, CERTIFIED FLEX ENDOSCOPE REPROCESSOR, FIN[employer]ATIONS REPRESENTATIVE, BS) Aortic valve stenosis Onset Date: ~05/04/17 I35.0 Atrial fibrillation, persistent Onset Date: ~06/22/19 I48.19 Cardiac mass Onset Date: ~10/05/18 I51.89 Decreased hearing of both ears H91.93 Essential hypertension I10 GERD (gastroesophageal reflux disease) Onset Date: ~05/18/97 K21.9 H/O iron deficiency anemia Z86.2 History of fractured pelvis Z87.81 History of fractured pelvis Z87.81 Lung nodules Onset Date: 08/22/17 R91.8 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 Onychomycosis B35.1 Raynauds disease I73.00 Varicose vein of leg I83.90 colonoscopy h/o kidney stones s/p removal of calcified nodule mitral l - Past Surgical History Surgical History: Past Surgical History (Last Updated 08/13/19 @ 10:09 by Red Unger, CERTIFIED FLEX ENDOSCOPE REPROCESSOR, FIN[employer]OUNDATIONS REPRESENTATIVE, BS) S/P aortic valve replacement Onset Date: 05/12/17 Z95.2 S/P removal of ovarian cyst Z98.890, Z87.42 Surgical History: - - Aortic valve replacement April 2017 beef valve Social History - Smoking History Smoking Status: Never smoker Hx Tobacco Use: No Hx Smoking Exposure: No - Alcohol Use Alcohol Usage: No - Substance Abuse Hx Substance Use: No - Occupation Occupation (List type of work in comments):: Retired - Hobbies, Recreation, Social Activities Hobbies: Sewing, Reading, Walking, Exercise - WALKING,PREVIOIUSLY WENT TO THE [employer] FOR EXERCISE, Other - GOING OUT WITH SISTERS, GARDENING AND YARD WORK Recreational Activities: I am able to engage in most, but not all activities Social Environment - Status Marital Status: Single - Current Living Arrangements Living Environment:: Alone - Children Do any of your children live nearby?: No - Safety Do you feel safe in your surroundings?: Yes - Assistance Do you need any assistance at home?: none Review of Systems - Review of Systems Hints: Right click = Denies ([place]). Left click = Reports ([place]) Review of Present Symptoms: Reports: Shortness of Breath with Exertion - WHEN CLIMBING SEVERAL SETS OF STAIRS, JUST MOMENTARY, Wound Healing - NO OPEN AREAS, NO DRAINAGE, Heart Arrhythmia/Irregularities - H/O ATRIAL FIBRILLATION, Appetite - Normal, Appetite - Special Diet - LOW SODIUM, Sleep - Normal. Denies: Shortness of Breath at Rest, Angina - Pain Is Patient Pain Free?: Yes Pain Location: none Pain Level: 0/10 Risk Factor Assessment - Chief Complaint Chief Complaint: S/P removal of calcification nodule of anterior mitral valve leaflet. - Vital Signs Temperature: 98.5 F Respiratory Rate: 12 Pulse Ox: 95 Blood Pressure: 154/70 Nailbeds:: pink - Pulse Pulse Rate: 62 Pulse Rhythm: Regular - Hypertension How long have you been treated?: 2006 On medication(s)?: yes Blood Pressure Sitting - Left Arm: 154/70 - Obesity Height: 5 ft 3 in Weight:: 165 lb Weight in Pounds: 165.0 lbs Weight Source: Stated by Patient Body Mass Index (BMI): 29.2 Nutritional Referral for Obesity: No - Physical Inactivity Physical Inactivity: Recreational activity - Risk Stratification Risk Guidelines: Lowest Risk: Risk Factor for Smoking, Risk Factor for Dyslipidemia, Risk Factor for Diabetes, Risk Factor for Sedentary Lifestyle, Risk Factor for Depression, Moderate Risk: Risk Factor for Obesity, Highest Risk: Risk Factor for Hypertension - For Smoking Smoking Risk Guidelines: Smoking Low Risk: None or quit greater than 6 months ago. Smoking Moderate Risk: Smoker or quit 6 months or less ago. Smoking High Risk: Smoker - For Dyslipidemia Dyslipidemia Risk Guidelines: Low Risk: Moderate Risk: High Risk: 15-25% fat 25.1-29% fat >/= 30% fat. <7% sat fat 7-9% sat fat >9% sat fat. <150 mg chol 150-299 mg chol >/= 300 mg chol. LDL <100 LDL 100-129 LDL >/= 130. Chol/HDL ratio <5.0 Chol/HDL ratio 5.0-6.0 Chol/HDL ratio >6.0. Triglycerides <100 Triglycerides 100-149 Triglycerides >/= 150 - For Diabetes Mellitus Diabetes Risk Guidelines: Diabetes Low Risk: HgA1c <6.5% and/or FBG <120. Diabetes Moderate Risk: HgA1c 6.6-7.9% and/or FBG 120-180. Diabetes High Risk: HgA1c >/= 8% and/or FBG >180 - For Obesity/Overweight Obesity/Overweight Risk Guidelines: Obesity Low Risk: BMI <25.0. Obesity Moderate Risk: BMI 25-29.9. Obesity High Risk: BMI >/= 30.0 - For Hypertension Hypertension Risk Guidelines: Hypertension Low Risk: Systolic <120 and Diastolic <80. Hypertension Moderate Risk: Systolic 120-139 and Diastolic 80-89. Hypertension High Risk: Systolic >/= 140 and Diastolic >/= 90 - For Sedentary Lifestyle Sedentary Lifestyle Risk Guidelines: Sedentary Lifestyle Low Risk: >/= 1,500 kcal/week. Sedentary Lifestyle Moderate Risk: 700-1,499 kcal/week. Sedentary Lifestyle High Risk: < 700 kcal/week - For Depression Depression Risk Guidelines: Depression Low Risk: Not clinically depressed. Depression Moderate Risk: Mildly depressed. Depression High Risk: Clinically depressed Motivation - Motivation to Participate On a scale of 1 to 10, how prepared are you to commit to attending program?: 9 What do you see as barriers to successfully being able to complete the program?: Some distal nerve damage in the hands from surgery, doing exercises for it What do you see as the benefits of succesfully completing the program? In other words, what do you hope to get out of participating in the program?: getting back in shape, making sure stay in normal rhythm with exercise. Are there issues you are dealing with that will interfere with completing the program?: nerve damage in hands bilaterally. Do you have a spouse or signficant other, family or friends who will help support you to complete the program?: yes.
[2019-08-13 10:27] VITALS: BP 154/70; PULSE 62; RESP 12; TEMP 36.9; O2SAT 95; BMI 29.2
[2019-08-13 10:55] VITALS: BP 154/70; BMI 29.2
== END ==
PROVIDERS: PCP Family Medicine
DX: Z95.2 Presence of prosthetic heart valve (principal)

== ENCOUNTER 2019-09-02 09:15 | Outpatient (RCR) | payer MEDICARE, SELFPAY ==
[2019-08-13 10:27] VITALS: BMI 29.2
== END 2019-09-03 23:59 ==
LOC: CR 09:15
PROVIDERS: PCP Family Medicine
DX: Z95.2 Presence of prosthetic heart valve (principal)
CPT/HCPCS: 93798

== ENCOUNTER 2019-09-04 09:32 | Outpatient (RCR) | payer MEDICARE, SELFPAY ==
[2019-08-13 10:27] VITALS: BMI 29.2
[2019-08-13 10:55] VITALS: BMI 29.2
--- NOTE | 2019-09-06 06:42 | PCM.CR.ITP ---
Exercise - Initial Assessment - Visit Date of Eval: 09/06/19 - With obvious neccessary interupption in the delivery of CR, the patient's program is on hold due to the coronovirus. The CR program has been closed for patient safety reasons.
== END 2019-10-03 23:59 ==
LOC: CR 09:32
PROVIDERS: PCP Family Medicine
DX: Z95.2 Presence of prosthetic heart valve (principal)
CPT/HCPCS: 93798

== ENCOUNTER 2019-11-01 09:15 | Outpatient (RCR) | payer MEDICARE, SELFPAY ==
[2019-08-13 10:27] VITALS: BMI 29.2
[2019-08-13 10:55] VITALS: BMI 29.2
--- NOTE | 2019-10-04 09:58 | PCM.CR.ITP ---
Diagnosis - General Information Admitting Diagnosis: S/P removal calcification nodule anterior mitral valve leaflet/repair Personal Learning Style:: Audio/Visual, Demonstration, Group, Individual Preference, Written Stage of change r/t lifestyle modifications:: Action Gave educational material for:: Treating Heart Disease, Emotions & Heart Disease, Stress Management & Relaxation, Sleep Disorders & Heart Disease, How The Heart Works, What it means to have Heart Disease, How Coronary Artery Disease is Diagnosed, Heart Procedures, What Heart Medications Do, Risk Factors & Modifications, Living an Active Life, Nutrition - Education/Goals Cardiac Rehabilitation Goals: 1. Maintain the individual as the primary focus of care. 2. To improve the patient's quality of life. 3. Identification of cardiac risk factors and provide cardiac risk factor management. 4. Enhance the psychosocial status of the patient. 5. Reconditioning enough to allow the patient to resume customary activities. 6. Control symptoms of cardiac disease Scale for measuring improvement of personal goals: Enter appropriate number in Comments. 2 = Unchanged. 3 = Slightly Better. 4 = Moderate Improvement. 5 = Met my Goal - Diagnosis & Disease Process Outcomes/Goals: Pt IDs own risk factors & lifestyle modifications by Session 10, Verbalizes symptoms of angina & response by session 3., Pt independently manages, Other Additional Outcomes/Goals: Plan/Interventions: Assist Pt to ID & engage in lifestyle modification to reduce CVD risk, Instruct on individual risk factors, Review symptoms of angina & emergency actions, Review secondary diagnosis & identify educational needs., Other see comment 30 day Reassessments:: Progressing 30 day Reassessments:: Progressing 30 day Reassessments:: Progressing 30 day Reassessments:: Progressing - Safety Referral to Physical Therapy: No Referral to [facility] Case Management: No Fall Risk Assessed:: Yes Assistive Devices:: None Exercise - 30-day Assessment - Visit Date of Eval: 10/04/19 Session #:: 8 Comments:: Pt was on hold for COVID 19 precaution. Pt is now resuming rehab. - Physician Prescribed Exercise Modalities: Treadmill, Airdyne, NuStep Frequency: 3x/week for 12 weeks [36 sessions] Intensity: 60-80% of age predicted maximum heart rate reserve Current METSs:: 3 Target Heart Rate:: 98-128 Current RPE:: 11-13 Maximum Excercise HR:: 106 Resting Blood Pressure: 128/74 Maximum Exercise Blood Pressure: 174/84 EKG Type: NSR - Outcomes & Goals Goals:: Verbalizes understanding of THR, RPE & goal METS by session 6, Documents in home exercise log/reports 30 min aerobic 5 day/wk by DC, Demonstrates accurate pulse taking by DC, Other additional outcome/goals: see below - Intervention & Plan Exercise Program Goals: Instruct on personal THR & RPE, Instruct on MET level & personal MET goal, Show patient to take own pulse /validate performance until accurate, Instruct on home exercise, Other additional plan/int - 30-day Reassessments 30 day Reassessments:: Progressing - Physical Activity Home Exercise Physical Activity - Home Exercise: Safe Exercise, Warm-up, Self-monitoring, Cool-Down, Home Exercise > 30 min Daily, Sitting Time <3 hours/daily - Outcomes & Goals Outcomes/Goals: Demonstrates correct Warm-up/exercise Cool-Down (S3) if = 2.5 METs, Verbalizes symptoms of exercise intolerance by Session 3 (S3), Demonstrate safe equipment use (S3) & follows exercise prescrition (6), Other: See below - Intervention & Plan Plan/Intervention: Instruct warm-up & cool-down if exercising at > 2 METs, Instruct on symptoms of exercise intolerance & actions to take, Instruct & monitor on saf, Assess intial functional capacity & safety risk, Other See below - 30-day Reassessments 30 day Reassessments:: Progressing Nutrition - 30-Day Assessment - Program Goals Nutrition Program Goals: LDL <100 optimal. 100 - 129 Near optimal. 130 - 159 Borderline High. 160 - 189 High. Total Cholesterol <200 desirable. 200 - 239 Borderline High. >/= 240 High. HDL < 40 Low >/=60 High. Triglycerides <150 desirable. <199 optimal. VlDL 5 - 40. HgbA1C <7%. BMI <25 Patient has diagnosis of Hyperlipidemia (ICD E78)?: Yes - Visit Date of Assessment:: 10/04/19 Session #:: 8 - Cholesterol/Lipids Outcomes/Goals: Pt IDs own risk factors & lifestyle modifications by Session 10, Verbalizes symptoms of angina & response by session 3., Pt independently manages, Other Additional Outcomes/Goals: Intervention/Plan: Instruct on personal lipid levels & lipid goals/NCEP guidelines Referral to dietitian:: No 30-day Reassessments:: Progressing - Diabetes (Other Core Measures) 30-day Reassessments:: Progressing - Weight Mgt (Other Care) Outcomes/Goals: Pt sets, maintains & shows weight loss goal & trend during rehab, Other additional outcomes/goals Intervention/Plan: Instruct on ideal BMI & set weight loss goal w/patient, Assist pt to ID & incorporate diet changes for weight loss by S9, Refer to Structured Weight Loss program as appropriate, Encourage goal of using 250-300dcal per session for weight loss, Other additional plan/interventions 30 day Reassessments:: Progressing - Healthy Eating Habits Will attend diet classes:: Yes Outcomes/Goals:: Consume diet rich in vegs,fruits,whole grain/high fiber,fish,lean meat, Limit sat/trans fats,cholesterol & added salts & sugars, Other additional outcome/goals: Intervention/Plan:: Assess current eating habits, Other Additional plan/interventions 30-day Reassessments:: Progressing - Education Gave educational materials for:: Signs & symptoms of hypoglycemia, Signs & symptoms of hyperglycemia, Relate diabetes to coronary artery disease, Healthy eating Medical- 30-Day Assessment - Visit Date of Eval: 10/04/19 Session #:: 8 - Medication Compliance Preventative Medication(s):: Aspirin, Statin/lipid, Beta debora, Warfarin/Coumadin H/O mental health issues: depression, anxiety, or addiction?: No Doesn?t believe in the benefits of treatment?: No Believes medications are unnecessary or harmful?: No Has a concern about medication side effects?: No Expresses concern over the cost of medications?: No Outcomes/Goals: Verbalizes medications,desired effect & common side effects @ DC, Pt self-reports following medication regimen, Keeps card in wallet w/medications listed by DC, Other additional outcome/goals: Interventions/plans: Instruct on medication effects & side effects, Review medication list w/patient every two weeks, Instruct importance of taking meds as ordered & assist problem solving, Other additional 30-day Reassessments:: Progressing - Tobacco Use Tobacco Use: Non-smoker 30-day Reassessments:: Progressing - Hypertension Hypertension Diagnosis:: Hypertension ICD-10 I10 [place] [employer] Hypertension Guidelines: [place] [employer] Hypertension Guidelines. Normal BP Less than 120/80. Elevated BP 120/80. Hypertension Stage 1: BP 130-139/80-89. Hypertesnion Stage 2: BP 140 or higher/90 or higher. Hypertension Crisis: BP higher than 180/120 Outcomes/Goals: Able to verbalize/achieve optimal blood pressure <130/80, Incorporates diet changes & exercise for blood pressure control by DC, Other additional outcomes/goals Interventions/plan: Instruct on optimal blood pressure, hypertension & medications, Instruct on effects of sodium, alcohol, stress, exercise &hypertension, Other additional plan/interventions 30 day Reassessments:: Progressing - Tobacco Cessation Referral Smoking Cessation Referral:: No Individual Education/Counseling:: No Education Schedule Given:: Yes Psychosocial - 30-Day Assess - VIsit Date of Eval: 10/04/19 Session #:: 8 History of previous Mental disease:: No - Target Goals Target Goals: Assess presence or absence of depression. Using a valid screening tool, maximizes coping skills. Positive support system - Psychosocial Test Tool Used:: [employer] QOL Cardiac, PHQ-9 Questionnaire phq-9 Severity: Severity. 1-4 Minimal Depression. 5-9 Mild Depression. 10-14 Moderate Depression. 15-19 Moderately Sever Depression. 20-27 Severe Depression. Rule: - Referral to Behavioral Health PS - Interventions: Yes Attend Stress Management Classes, No Referral to Behavioral Health if PHQ-9 score >9:, No Referral to [facility], No Referral to Physician if PHQ-9 if score is 5-9: - Outcomes/Goals: See list Psychosocial Outcomes/Goals:: ID's personal stressors & 2 strategies to manage stress by discharge, Other Additional outcome/goals: - Intervention/Plan: See List Interventions/Plan:: Assess stressors,coping strategies & signs of derpression on admission, Instruct/assist pt to develop coping & personal stress Mgt strategies, Refer to Behavioral Health if appropriate, Refer to Physician if appropriate, Instruct patient to recognize signs & symptoms of depression, Instruct patient to recog, Other additional plan/intervention - 30-day Reassessments: 30 day Reassessments:: Progressing Patient Health Questionnaire 30-Day Re-eval Assessment 1. Little interest or pleasure in doing things: Several days 2. Feeling down, depressed, or hopeless: Not at all 3. Trouble falling or staying asleep, or sleeping too much: Not at all 4. Feeling tired or having little energy: Several days 5. Poor appetite or overeating: Not at all 6. Feeling bad about yourself -- or that you are a failure or have let yourself or your family down: Not at all 7. Trouble concentrating on things, such as reading the newspaper or watching television: Not at all 8. Moving or speaking so slowly that other people could have noticed. Or the opposite - being so fidgety or restless that you have been moving around a lot more than usual: Not at all 9. Thoughts that you would be better off , or of hurting yourself in some way: Not at all How difficult have these problems made it for you to do your work, take care of things at home, or get along with other people?: Not difficult at all Total Score: 2 Self-Efficacy 30-Day Re-eval Assessment We would like to know how confident you are in doing certain activities. Please select your confidence level for:: Select your confidence level for the following using the scale 1-10 where 1 is not at all confident and 10 is totally confident. Your score is the average of all 6 responses. Fatigue: How confident are you that you can keep the fatigue caused by your disease from interfering with the things you want to do? Select Number: 9 Physical Discomfort or Pain: How confident are you that you can keep the physical discomfort or pain of your disease from interfering with the things you want to do? Select Number: 9 Emotional Distress: How confident are you that you can keep the emotional distress caused by your disease from interfering with the things you want to do? Select Number: 9 Other Symptoms or Health Problems: How confident are you that you can keep other symptoms or health problems from interfering with the things you want to do? Select Number: 9 Different Tasks and Activities: How confident are you that you can do the different tasks and activities needed to manage your health condition so as to reduce your need to see a doctor? Select Number: 9 Medication: How confident are you that you can do things other than just taking medication to reduce how much your illness affects your everyday life? Select Number: 8 Total Score:: 8
[2019-10-04 10:07] VITALS: BP 128/74
--- NOTE | 2019-10-22 09:07 | CR.ITP_ITS ---
Exercise - 30-day Assessment - Visit Date of Eval: 10/22/19 Comments:: Suspension of Cardiac Rehab services resulted from 09/05/2019 through 10/07/2019 as a result of Covid-19 closure of the program [facility] and [facility]. Louis's orders. - Physician Prescribed Exercise Modalities: Treadmill, Airdyne, NuStep Frequency: 3x/week for 12 weeks [36 sessions] Intensity: 60-80% of age predicted maximum heart rate reserve Current METSs:: 3.5 Target Heart Rate:: 98-128 Target RPE 12-16:: Current RPE:: 11-12 Maximum Excercise HR:: 103 Resting Blood Pressure: 138/72 Maximum Exercise Blood Pressure: 178/90 EKG Type: Sinus rhythm to sinus tachycardia with rare PAC and PVC Current Physical Activity or Exercising minutes: 35-40 - Outcomes & Goals Goals:: Verbalizes understanding of THR, RPE & goal METS by session 6, Documents in home exercise log/reports 30 min aerobic 5 day/wk by DC, Demonstrates accurate pulse taking by DC - Intervention & Plan Exercise Program Goals: Instruct on personal THR & RPE, Instruct on MET level & personal MET goal, Show patient to take own pulse /validate performance until accurate, Instruct on home exercise - 30-day Reassessments 30 day Reassessments:: Met - Physical Activity Home Exercise Physical Activity - Home Exercise: Safe Exercise, Warm-up, Self-monitoring, Cool-Down, Home Exercise > 30 min Daily, Sitting Time <3 hours/daily - Outcomes & Goals Outcomes/Goals: Demonstrates correct Warm-up/exercise Cool-Down (S3) if = 2.5 METs, Verbalizes symptoms of exercise intolerance by Session 3 (S3), Demonstrate safe equipment use (S3) & follows exercise prescrition (6) - Intervention & Plan Plan/Intervention: Instruct warm-up & cool-down if exercising at > 2 METs, Instruct on symptoms of exercise intolerance & actions to take, Instruct & monitor on saf, Assess intial functional capacity & safety risk - 30-day Reassessments 30 day Reassessments:: Met Nutrition - 30-Day Assessment - Program Goals Nutrition Program Goals: LDL <100 optimal. 100 - 129 Near optimal. 130 - 159 Borderline High. 160 - 189 High. Total Cholesterol <200 desirable. 200 - 239 Borderline High. >/= 240 High. HDL < 40 Low >/=60 High. Triglycerides <150 desirable. <199 optimal. VlDL 5 - 40. HgbA1C <7%. BMI <25 Patient has diagnosis of Hyperlipidemia (ICD E78)?: Yes - Visit Date of Assessment:: 10/22/19 Session #:: 15 - Cholesterol/Lipids Determine presence & major risk factors that modify LDL goal: Hypertension or hypertensive medication, Family history of premature CHD in Male < 55 years: female <65 yearsFa Outcomes/Goals: Pt IDs own risk factors & lifestyle modifications by Session 10, Verbalizes symptoms of angina & response by session 3., Pt independently manages Intervention/Plan: Instruct on personal lipid levels & lipid goals/NCEP guidelines, Instruct on cholesterol Referral to dietitian:: Yes - Medical Nutrition Therapy 30-day Reassessments:: Progressing - Diabetes (Other Core Measures) Diabetes Type: Not Applicable - Weight Mgt (Other Care) Not Applicable: Yes Height: 5 ft 3 in Weight:: 170 lb BMI: 30.1 Diagnosis Overweight/Obesity BMI> 30% ICD-10 E66: Yes Outcomes/Goals: Pt sets, maintains & shows weight loss goal & trend during rehab Intervention/Plan: Instruct on ideal BMI & set weight loss goal w/patient, Refer to Structured Weight Loss program as appropriate, Encourage goal of using 250- 300dcal per session for weight loss 30 day Reassessments:: Not Met - Healthy Eating Habits Will attend diet classes:: Yes Outcomes/Goals:: Consume diet rich in vegs,fruits,whole grain/high fiber,fish,lean meat, Limit sat/trans fats,cholesterol & added salts & sugars Intervention/Plan:: Assess current eating habits 30-day Reassessments:: Progressing - Education Gave educational materials for:: Healthy eating Medical- 30-Day Assessment - Visit Date of Eval: 10/22/19 Session #:: 15 - Medication Compliance Preventative Medication(s):: Aspirin, Statin/lipid, Beta debora H/O mental health issues: depression, anxiety, or addiction?: No Doesn?t believe in the benefits of treatment?: No Believes medications are unnecessary or harmful?: No Has a concern about medication side effects?: No Expresses concern over the cost of medications?: No Outcomes/Goals: Verbalizes medications,desired effect & common side effects @ DC, Pt self-reports following medication regimen, Keeps card in wallet w/medications listed by DC Interventions/plans: Instruct on medication effects & side effects, Review medication list w/patient every two weeks, Instruct importance of taking meds as ordered & assist problem solving 30-day Reassessments:: Progressing - Tobacco Use Tobacco Use: Non-smoker - Hypertension Hypertension Diagnosis:: Hypertension ICD-10 I10 Resting Blood Pressure:: 138/72 [place] [employer] Hypertension Guidelines: [place] [employer] Hypertension Guidelines. Normal BP Less than 120/80. Elevated BP 120/80. Hypertension Stage 1: BP 130-139/80-89. Hypertesnion Stage 2: BP 140 or higher/90 or higher. Hypertension Crisis: BP higher than 180/120 Peak Exercise Blood Pressure:: 178/90 Outcomes/Goals: Able to verbalize/achieve optimal blood pressure <130/80, Incorporates diet changes & exercise for blood pressure control by DC Interventions/plan: Instruct on optimal blood pressure, hypertension & medications, Instruct on effects of sodium, alcohol, stress, exercise &hypertension 30 day Reassessments:: Progressing - Tobacco Cessation Referral Smoking Cessation Referral:: No Individual Education/Counseling:: No Education Schedule Given:: Yes Psychosocial - 30-Day Assess - VIsit Date of Eval: 10/22/19 Session #:: 15 Not Applicable: Yes - Target Goals Target Goals: Assess presence or absence of depression. Using a valid screening tool, maximizes coping skills. Positive support system - Psychosocial Test Tool Used:: Chrissie Hernandez QOL Cardiac, PHQ-9 Questionnaire phq-9 Severity: Severity. 1-4 Minimal Depression. 5-9 Mild Depression. 10-14 Moderate Depression. 15-19 Moderately Sever Depression. 20-27 Severe Depression. Rule: - Referral to Behavioral Health PS - Interventions: Yes Attend Stress Management Classes, No Referral to Behavioral Health if PHQ-9 score >9:, No Referral to [facility], No Referral to Physician if PHQ-9 if score is 5-9: - Outcomes/Goals: See list Psychosocial Outcomes/Goals:: ID's personal stressors & 2 strategies to manage stress by discharge - Intervention/Plan: See List Interventions/Plan:: Assess stressors,coping strategies & signs of derpression on admission, Instruct/assist pt to develop coping & personal stress Mgt strategies, Instruct patient to recognize signs & symptoms of depression, Instruct patient to recog - 30-day Reassessments: 30 day Reassessments:: Progressing Patient Health Questionnaire 30-Day Re-eval Assessment 1. Little interest or pleasure in doing things: Several days 2. Feeling down, depressed, or hopeless: Not at all 3. Trouble falling or staying asleep, or sleeping too much: Not at all 4. Feeling tired or having little energy: Several days 5. Poor appetite or overeating: Not at all 6. Feeling bad about yourself -- or that you are a failure or have let yourself or your family down: Not at all 7. Trouble concentrating on things, such as reading the newspaper or watching television: Not at all 8. Moving or speaking so slowly that other people could have noticed. Or the opposite - being so fidgety or restless that you have been moving around a lot more than usual: Not at all 9. Thoughts that you would be better off , or of hurting yourself in some way: Not at all How difficult have these problems made it for you to do your work, take care of things at home, or get along with other people?: Not difficult at all Total Score: 2 Self-Efficacy 30-Day Re-eval Assessment We would like to know how confident you are in doing certain activities. Please select your confidence level for:: Select your confidence level for the following using the scale 1-10 where 1 is not at all confident and 10 is totally confident. Your score is the average of all 6 responses. Fatigue: How confident are you that you can keep the fatigue caused by your disease from interfering with the things you want to do? Select Number: 9 Physical Discomfort or Pain: How confident are you that you can keep the physical discomfort or pain of your disease from interfering with the things you want to do? Select Number: 9 Emotional Distress: How confident are you that you can keep the emotional distress caused by your disease from interfering with the things you want to do? Select Number: 9 Other Symptoms or Health Problems: How confident are you that you can keep other symptoms or health problems from interfering with the things you want to do? Select Number: 9 Different Tasks and Activities: How confident are you that you can do the different tasks and activities needed to manage your health condition so as to reduce your need to see a doctor? Select Number: 9 Medication: How confident are you that you can do things other than just taking medication to reduce how much your illness affects your everyday life? Select Number: 9 Total Score:: 9
[2019-10-22 09:21] VITALS: BP 138/72; BP 178/90; BMI 30.1
== END 2019-11-03 23:59 ==
LOC: CR 09:15
PROVIDERS: PCP Family Medicine
DX: Z95.2 Presence of prosthetic heart valve (principal)
CPT/HCPCS: 93798

== ENCOUNTER 2019-12-02 09:15 | Outpatient (RCR) | payer MEDICARE, SELFPAY ==
[2019-08-13 10:27] VITALS: BMI 29.2
[2019-10-22 09:21] VITALS: BMI 30.1
[2019-11-04 00:28] VITALS: BP 138/72; BP 178/90
--- NOTE | 2019-11-13 08:14 | PCM.CR.ITP ---
Exercise - 60-day Assessment - Visit Date of Eval: 11/13/19 Session #:: 23 - Physician Prescribed Exercise Modalities: Treadmill, Airdyne, NuStep Frequency: 3x/week for 12 weeks [36 sessions] Intensity: 60-80% of age predicted maximum heart rate reserve Current METSs:: 4.0 Target Heart Rate:: 98-128 Current RPE:: 12-14 Maximum Excercise HR:: 102 Resting Blood Pressure: 140/72 Maximum Exercise Blood Pressure: 162/78 EKG Type: NSR to sinus tachycardia with rare PVCs and PACs - Outcomes & Goals Goals:: Verbalizes understanding of THR, RPE & goal METS by session 6, Documents in home exercise log/reports 30 min aerobic 5 day/wk by DC, Demonstrates accurate pulse taking by DC - Intervention & Plan Exercise Program Goals: Instruct on personal THR & RPE, Instruct on MET level & personal MET goal, Show patient to take own pulse /validate performance until accurate, Instruct on home exercise - 30-day Reassessments 30 day Reassessments:: Progressing - Physical Activity Home Exercise Physical Activity - Home Exercise: Safe Exercise, Warm-up, Self-monitoring, Cool-Down, Home Exercise > 30 min Daily, Sitting Time <3 hours/daily - Outcomes & Goals Outcomes/Goals: Demonstrates correct Warm-up/exercise Cool-Down (S3) if = 2.5 METs, Verbalizes symptoms of exercise intolerance by Session 3 (S3), Demonstrate safe equipment use (S3) & follows exercise prescrition (6) - Intervention & Plan Plan/Intervention: Instruct warm-up & cool-down if exercising at > 2 METs, Instruct on symptoms of exercise intolerance & actions to take, Instruct & monitor on saf, Assess intial functional capacity & safety risk - 30-day Reassessments 30 day Reassessments:: Progressing Nutrition - 60-Day Assessment - Program Goals Nutrition Program Goals: LDL <100 optimal. 100 - 129 Near optimal. 130 - 159 Borderline High. 160 - 189 High. Total Cholesterol <200 desirable. 200 - 239 Borderline High. >/= 240 High. HDL < 40 Low >/=60 High. Triglycerides <150 desirable. <199 optimal. VlDL 5 - 40. HgbA1C <7%. BMI <25 Patient has diagnosis of Hyperlipidemia (ICD E78)?: Yes - Visit Date of Assessment:: 11/13/19 Session #:: 23 - Cholesterol/Lipids Determine presence & major risk factors that modify LDL goal: Hypertension or hypertensive medication, Family history of premature CHD in Male < 55 years: female <65 yearsFa, Age men > 45 years; women >/= 55 years Outcomes/Goals: Pt IDs own risk factors & lifestyle modifications by Session 10, Verbalizes symptoms of angina & response by session 3., Pt independently manages Intervention/Plan: Instruct on personal lipid levels & lipid goals/NCEP guidelines, Instruct on cholesterol Referral to dietitian:: Yes - medical nutrition therapy 30-day Reassessments:: Progressing - Diabetes (Other Core Measures) Diabetes Type: Not Applicable - Weight Mgt (Other Care) Not Applicable: Yes Height: 5 ft 3 in Weight:: 170 lb 8 oz BMI: 30.2 Diagnosis Overweight/Obesity BMI> 30% ICD-10 E66: Yes Diagnosis High BMI/Morbid Obesity BMI> 35% ICD-10 Z68: No Intervention/Plan: Instruct on ideal BMI & set weight loss goal w/patient, Assist pt to ID & incorporate diet changes for weight loss by S9, Refer to Structured Weight Loss program as appropriate, Encourage goal of using 250-300dcal per session for weight loss 30 day Reassessments:: Progressing - Healthy Eating Habits Will attend diet classes:: Yes Outcomes/Goals:: Consume diet rich in vegs,fruits,whole grain/high fiber,fish,lean meat, Limit sat/trans fats,cholesterol & added salts & sugars Intervention/Plan:: Assess current eating habits 30-day Reassessments:: Progressing - Education Gave educational materials for:: Healthy eating Medical- 60-Day Assessment - Visit Date of Eval: 11/13/19 Session #:: 23 - Medication Compliance Preventative Medication(s):: Aspirin, Statin/lipid, Beta debora H/O mental health issues: depression, anxiety, or addiction?: No Doesn?t believe in the benefits of treatment?: No Believes medications are unnecessary or harmful?: No Has a concern about medication side effects?: No Expresses concern over the cost of medications?: No Outcomes/Goals: Verbalizes medications,desired effect & common side effects @ DC, Pt self-reports following medication regimen, Keeps card in wallet w/medications listed by DC Interventions/plans: Instruct on medication effects & side effects, Review medication list w/patient every two weeks, Instruct importance of taking meds as ordered & assist problem solving 30-day Reassessments:: Progressing - Tobacco Use Tobacco Use: Non-smoker - Hypertension Hypertension Diagnosis:: Hypertension ICD-10 I10 Resting Blood Pressure:: 140/72 [place] [employer] Hypertension Guidelines: [place] [employer] Hypertension Guidelines. Normal BP Less than 120/80. Elevated BP 120/80. Hypertension Stage 1: BP 130-139/80-89. Hypertesnion Stage 2: BP 140 or higher/90 or higher. Hypertension Crisis: BP higher than 180/120 Peak Exercise Blood Pressure:: 162/78 Outcomes/Goals: Able to verbalize/achieve optimal blood pressure <130/80, Incorporates diet changes & exercise for blood pressure control by DC Interventions/plan: Instruct on optimal blood pressure, hypertension & medications, Instruct on effects of sodium, alcohol, stress, exercise &hypertension 30 day Reassessments:: Progressing - Tobacco Cessation Referral Smoking Cessation Referral:: No Individual Education/Counseling:: No Education Schedule Given:: Yes Psychosocial - 60-Day Assess - VIsit Date of Eval: 11/13/19 Session #:: 23 Not Applicable: Yes History of previous Mental disease:: No - Target Goals Target Goals: Assess presence or absence of depression. Using a valid screening tool, maximizes coping skills. Positive support system - Psychosocial Test Tool Used:: [employer] QOL Cardiac, PHQ-9 Questionnaire phq-9 Severity: Severity. 1-4 Minimal Depression. 5-9 Mild Depression. 10-14 Moderate Depression. 15-19 Moderately Sever Depression. 20-27 Severe Depression. Rule: - Referral to Behavioral Health PS - Interventions: Yes Attend Stress Management Classes, No Referral to Behavioral Health if PHQ-9 score >9:, No Referral to [facility], No Referral to Physician if PHQ-9 if score is 5-9: - Outcomes/Goals: See list Psychosocial Outcomes/Goals:: ID's personal stressors & 2 strategies to manage stress by discharge - Intervention/Plan: See List Interventions/Plan:: Assess stressors,coping strategies & signs of derpression on admission, Instruct/assist pt to develop coping & personal stress Mgt strategies, Instruct patient to recognize signs & symptoms of depression, Instruct patient to recog - 30-day Reassessments: 30 day Reassessments:: Progressing Patient Health Questionnaire 60-Day Re-eval Assessment 1. Little interest or pleasure in doing things: Several days 2. Feeling down, depressed, or hopeless: Not at all 3. Trouble falling or staying asleep, or sleeping too much: Not at all 4. Feeling tired or having little energy: Several days 5. Poor appetite or overeating: Not at all 6. Feeling bad about yourself -- or that you are a failure or have let yourself or your family down: Not at all 7. Trouble concentrating on things, such as reading the newspaper or watching television: Not at all 8. Moving or speaking so slowly that other people could have noticed. Or the opposite - being so fidgety or restless that you have been moving around a lot more than usual: Not at all 9. Thoughts that you would be better off , or of hurting yourself in some way: Not at all Total Score: 2 Self-Efficacy 60-Day Re-eval Assessment We would like to know how confident you are in doing certain activities. Please select your confidence level for:: Select your confidence level for the following using the scale 1-10 where 1 is not at all confident and 10 is totally confident. Your score is the average of all 6 responses. Fatigue: How confident are you that you can keep the fatigue caused by your disease from interfering with the things you want to do? Select Number: 9 Physical Discomfort or Pain: How confident are you that you can keep the physical discomfort or pain of your disease from interfering with the things you want to do? Select Number: 10 Emotional Distress: How confident are you that you can keep the emotional distress caused by your disease from interfering with the things you want to do? Select Number: 10 Other Symptoms or Health Problems: How confident are you that you can keep other symptoms or health problems from interfering with the things you want to do? Select Number: 10 Different Tasks and Activities: How confident are you that you can do the different tasks and activities needed to manage your health condition so as to reduce your need to see a doctor? Select Number: 10 Medication: How confident are you that you can do things other than just taking medication to reduce how much your illness affects your everyday life? Select Number: 10 Total Score:: 9
[2019-11-13 08:22] VITALS: BP 140/72; BP 162/78; BMI 30.2
== END 2019-12-03 23:59 ==
LOC: CR 09:15
PROVIDERS: PCP Family Medicine
DX: Z95.2 Presence of prosthetic heart valve (principal)
CPT/HCPCS: 93798

== ENCOUNTER 2019-12-16 09:15 | Outpatient (RCR) | payer MEDICARE, SELFPAY ==
[2019-08-13 10:27] VITALS: BMI 29.2
[2019-11-13 08:22] VITALS: BMI 30.2
[2019-12-04 00:27] VITALS: BP 140/72; BP 162/78
--- NOTE | 2019-12-13 08:25 | CR.ITP_ITS ---
Diagnosis - General Information Admitting Diagnosis: S/P removal calcification nodule anterior mitral valve leaflet/ repair Personal Learning Style:: Audio/Visual Barriers to Learning: Vision Impairment Stage of change r/t lifestyle modifications:: Action Gave educational material for:: Treating Heart Disease, Emotions & Heart Disease, Stress Management & Relaxation, Sleep Disorders & Heart Disease, How The Heart Works, What it means to have Heart Disease, How Coronary Artery Disease is Diagnosed, Heart Procedures, What Heart Medications Do, Risk Factors & Modifications, Living an Active Life, Nutrition - Education/Goals Cardiac Rehabilitation Goals: 1. Maintain the individual as the primary focus of care. 2. To improve the patient's quality of life. 3. Identification of cardiac risk factors and provide cardiac risk factor management. 4. Enhance the psychosocial status of the patient. 5. Reconditioning enough to allow the patient to resume customary activities. 6. Control symptoms of cardiac disease Scale for measuring improvement of personal goals: Enter appropriate number in Comments. 2 = Unchanged. 3 = Slightly Better. 4 = Moderate Improvement. 5 = Met my Goal - Diagnosis & Disease Process Outcomes/Goals: Pt IDs own risk factors & lifestyle modifications by Session 10, Verbalizes symptoms of angina & response by session 3., Pt independently manages, Other Additional Outcomes/Goals: 30 day Reassessments:: Met 30 day Reassessments:: Met 30 day Reassessments:: Met 30 day Reassessments:: Met Final Reassessments:: Met - Safety Referral to Physical Therapy: No Referral to [facility] Case Management: No Fall Risk Assessed:: Yes Assistive Devices:: None Exercise - Final/Discharge - Visit Date of Eval: 12/13/19 Session #:: 34 - Physician Prescribed Exercise Modalities: Treadmill, Airdyne, NuStep Frequency: 3x/week for 12 weeks [36 sessions] Intensity: 60-80% of age predicted maximum heart rate reserve Current METSs:: 4 Target Heart Rate:: 98-128 Current RPE:: 12-14 Maximum Excercise HR:: 110 Resting Blood Pressure: 140/72 Maximum Exercise Blood Pressure: 170/84 EKG Type: NSR with Hx of A-fib - Outcomes & Goals Goals:: Verbalizes understanding of THR, RPE & goal METS by session 6, Documents in home exercise log/reports 30 min aerobic 5 day/wk by DC, Demonstrates accurate pulse taking by DC, Other additional outcome/goals: see below - Intervention & Plan Exercise Program Goals: Instruct on personal THR & RPE, Instruct on MET level & personal MET goal, Show patient to take own pulse /validate performance until accurate, Instruct on home exercise, Other additional plan/int - 30-day Reassessments 30 day Reassessments:: Met - Physical Activity Home Exercise Physical Activity - Home Exercise: Safe Exercise, Warm-up, Self-monitoring, Cool-Down, Home Exercise > 30 min Daily, Sitting Time <3 hours/daily - Outcomes & Goals Outcomes/Goals: Demonstrates correct Warm-up/exercise Cool-Down (S3) if = 2.5 METs, Verbalizes symptoms of exercise intolerance by Session 3 (S3), Demonstrate safe equipment use (S3) & follows exercise prescrition (6), Other: See below - Intervention & Plan Plan/Intervention: Instruct warm-up & cool-down if exercising at > 2 METs, Instruct on symptoms of exercise intolerance & actions to take, Instruct & monitor on saf, Assess intial functional capacity & safety risk, Other See below - 30-day Reassessments 30 day Reassessments:: Met Nutrition - Final Assessment - Program Goals Nutrition Program Goals: LDL <100 optimal. 100 - 129 Near optimal. 130 - 159 Borderline High. 160 - 189 High. Total Cholesterol <200 desirable. 200 - 239 Borderline High. >/= 240 High. HDL < 40 Low >/=60 High. Triglycerides <150 desirable. <199 optimal. VlDL 5 - 40. HgbA1C <7%. BMI <25 Patient has diagnosis of Hyperlipidemia (ICD E78)?: Yes - Visit Date of Assessment:: 12/13/19 Session #:: 34 - Cholesterol/Lipids Determine presence & major risk factors that modify LDL goal: Hypertension or hypertensive medication, Family history of premature CHD in Male < 55 years: female <65 yearsFa Outcomes/Goals: Pt IDs own risk factors & lifestyle modifications by Session 10, Verbalizes symptoms of angina & response by session 3., Pt independently manages, Other Additional Outcomes/Goals: Intervention/Plan: Advocate for lipid panel cholesterol medication if applicable, Instruct on personal lipid levels & lipid goals/NCEP guidelines, Instruct on cholesterol, Other additional plan/int Referral to dietitian:: Yes - medical nutrition therapy 30-day Reassessments:: Met - Weight Mgt (Other Care) Not Applicable: Yes Height: 5 ft 3 in Weight:: 77.564 kg BMI: 30.2 Diagnosis Overweight/Obesity BMI> 30% ICD-10 E66: Yes Outcomes/Goals: Pt sets, maintains & shows weight loss goal & trend during rehab, Other additional outcomes/goals Intervention/Plan: Instruct on ideal BMI & set weight loss goal w/patient, Assist pt to ID & incorporate diet changes for weight loss by S9, Refer to Structured Weight Loss program as appropriate, Encourage goal of using 250- 300dcal per session for weight loss, Other additional plan/interventions 30 day Reassessments:: Met - Healthy Eating Habits Will attend diet classes:: Yes Outcomes/Goals:: Consume diet rich in vegs,fruits,whole grain/high fiber,fish,lean meat, Limit sat/trans fats,cholesterol & added salts & sugars, Other additional outcome/goals: 30-day Reassessments:: Met - Education Gave educational materials for:: Signs & symptoms of hypoglycemia, Signs & symptoms of hyperglycemia, Relate diabetes to coronary artery disease, Healthy eating Medical - Final Assessment - Visit Date of Eval: 12/13/19 Session #:: 34 - Medication Compliance Preventative Medication(s):: Aspirin, Statin/lipid, Beta debora H/O mental health issues: depression, anxiety, or addiction?: No Doesn?t believe in the benefits of treatment?: No Believes medications are unnecessary or harmful?: No Has a concern about medication side effects?: No Expresses concern over the cost of medications?: No Outcomes/Goals: Verbalizes medications,desired effect & common side effects @ DC, Pt self-reports following medication regimen, Keeps card in wallet w/medicat ions listed by DC, Other additional outcome/goals: Interventions/plans: Instruct on medication effects & side effects, Review medication list w/patient every two weeks, Instruct importance of taking meds as ordered & assist problem solving, Other additional 30-day Reassessments:: Met - Tobacco Use Tobacco Use: Non-smoker - Hypertension Hypertension Diagnosis:: Hypertension ICD-10 I10 [place] [employer] Hypertension Guidelines: [place] [employer] Hypertension Guidelines. Normal BP Less than 120/80. Elevated BP 120/80. Hypertension Stage 1: BP 130-139/80-89. Hypertesnion Stage 2: BP 140 or higher/90 or higher. Hypertension Crisis: BP higher than 180/120 Peak Exercise Blood Pressure:: 170/84 Outcomes/Goals: Able to verbalize/achieve optimal blood pressure <130/80, Inco rporates diet changes & exercise for blood pressure control by DC, Other additional outcomes/goals Interventions/plan: Instruct on optimal blood pressure, hypertension & medic ations, Instruct on effects of sodium, alcohol, stress, exercise &hypertension, Other additional plan/interventions 30 day Reassessments:: Met - Tobacco Cessation Referral Smoking Cessation Referral:: No Individual Education/Counseling:: No Education Schedule Given:: Yes Psychosocial - Final Assessmen - VIsit Date of Eval: 12/13/19 Session #:: 34 History of previous Mental disease:: No - Target Goals Target Goals: Assess presence or absence of depression. Using a valid screening tool, maximizes coping skills. Positive support system - Psychosocial Test Tool Used:: [employer] QOL Cardiac, PHQ-9 Questionnaire phq-9 Severity: Severity. 1-4 Minimal Depression. 5-9 Mild Depression. 10-14 Moderate Depression. 15-19 Moderately Sever Depression. 20-27 Severe Depression. Rule: - Outcomes/Goals: See list Psychosocial Outcomes/Goals:: ID's personal stressors & 2 strategies to manage stress by discharge, Other Additional outcome/goals: - Intervention/Plan: See List Interventions/Plan:: Assess stressors,coping strategies & signs of derpression on admission, Instruct/assist pt to develop coping & personal stress Mgt strategies, Refer to Behavioral Health if appropriate, Refer to Physician if appropriate, Instruct patient to recognize signs & symptoms of depression, Instruct patient to recog, Other additional plan/intervention - 30-day Reassessments: 30 day Reassessments:: Met Patient Health Questionnaire Discharge Assessment 1. Little interest or pleasure in doing things: Several days 2. Feeling down, depressed, or hopeless: Not at all 3. Trouble falling or staying asleep, or sleeping too much: Not at all 4. Feeling tired or having little energy: Several days 5. Poor appetite or overeating: Not at all 6. Feeling bad about yourself -- or that you are a failure or have let yourself or your family down: Not at all 7. Trouble concentrating on things, such as reading the newspaper or watching television: Not at all 8. Moving or speaking so slowly that other people could have noticed. Or the opposite - being so fidgety or restless that you have been moving around a lot more than usual: Not at all 9. Thoughts that you would be better off , or of hurting yourself in some way: Not at all How difficult have these problems made it for you to do your work, take care of things at home, or get along with other people?: Not difficult at all Total Score: 2 NEREIDA-Q SV Test - Statements CAD is a disease of the arteries in the heart: True Examples of risk factors for heart disease: True Angina is chest pain or discomfort: True The benefits of resistance training include: True Eating more meat and dairy products: False Anti-platelet medications such as aspirin are important: True The only effective way to manage stress: False An exercise warm-up slowly increases heart rate: True Prepared, processed foods usually have high sodium: True Depression is common after a heart attack: True The statin medications lower cholesterol: True To control blood pressure, lower the amount of sodium: True If someone gets chest discomfort during walking: False Transfats are partially hydrogenated vegetable oils: True Sleep apnea that is not treated increases the risk: True To control cholesterol, one should become a vegetarian: False Someone knows if he/she is exercising at the right level: True Diabetes cannot be prevented with exercise & health eating: True Stress is a large risk for heart attack: True A diet that can help lower blood pressure is rich in: True - Total Score Total Correct Responses: 17 Self-Efficacy Discharge Assessment We would like to know how confident you are in doing certain activities. Please select your confidence level for:: Select your confidence level for the following using the scale 1-10 where 1 is not at all confident and 10 is totally confident. Your score is the average of all 6 responses. Fatigue: How confident are you that you can keep the fatigue caused by your disease from interfering with the things you want to do? Select Number: 9 Physical Discomfort or Pain: How confident are you that you can keep the physical discomfort or pain of your disease from interfering with the things you want to do? Select Number: 9 Emotional Distress: How confident are you that you can keep the emotional distress caused by your disease from interfering with the things you want to do? Select Number: 9 Other Symptoms or Health Problems: How confident are you that you can keep other symptoms or health problems from interfering with the things you want to do? Select Number: 9 Different Tasks and Activities: How confident are you that you can do the different tasks and activities needed to manage your health condition so as to reduce your need to see a doctor? Select Number: 9 Medication: How confident are you that you can do things other than just taking medication to reduce how much your illness affects your everyday life? Select Number: 9 Total Score:: 9 Nutrition Survey - Nutrition Survey Instructions Scoring Instructions: Scoring is as follows: Yes = 1 points. No = 0 point. Patient score that is >/=12 is considered to be at potential nutritional risk and could benefit from a referral to a registered dietitian. - Nutrition Survey Discharge Have you lost >10 lbs over the past 2 months without trying?: No Are you following a special diet at home for diabetes, low fat, or low salt?: Yes Are you interested in meeting with a dietitian for help understanding your diet?: No Do you eat less than 3 meals a day?: No Do you eat fatty meats (banuelos, sausage, ribs, etc), fried foods, desserts, large amounts of salad dressings, margarine, butter, or cheese most days?: No Do you have food allergies? [Enter types in comment field]: Yes - strawberries Do you eat in restaurants more than 3 times a week?: No Do you season food with salt, seasoning salt, or garlic salt?: No Do you used canned, boxed, frozen meals, or soups, seasoning packets?: No Total Score:: 2
[2019-12-13 08:38] VITALS: BP 140/72; BP 170/84; BMI 30.2
== END 2020-01-03 23:59 ==
LOC: CR 09:15
PROVIDERS: PCP Family Medicine
DX: Z95.2 Presence of prosthetic heart valve (principal)
CPT/HCPCS: 93798

== ENCOUNTER → 2020-11-11 13:38 | Outpatient (CLI) | payer MEDICARE, SELFPAY ==
[2019-08-13 10:27] VITALS: BMI 29.2
[2019-12-13 08:38] VITALS: BMI 30.2
--- NOTE | 2020-11-11 14:51 | NEURO ---
NCS and/or EMG Patient Report Ordering Doctor: Erik Palafox DATE OF SERVICE: 11/11/20 Jazmine presents for electrodiagnostic testing of the upper limbs. She reports numbness and tingling in both hands, worse around the left fifth digit. Electrodiagnostic findings: Normal median motor response bilaterally. Normal ulnar motor response bilaterally, including conduction across the elbow. Normal median and ulnar F waves. Mildly prolonged sensory latency at the wrist bilaterally. Prolonged median palmar latency. Normal ulnar and radial sensory responses. On needle EMG, all muscles tested in the upper limbs showed no evidence of denervation with normal motor unit action potentials. Electrodiagnostic assessment: This an abnormal study in the upper limbs 1. Electrodiagnostic findings suggestive of bilateral median mononeuropathy. This is consistent with a mild bilateral carpal tunnel syndrome. 2. There is no electrodiagnostic evidence for ulnar neuropathy, including cubital tunnel syndrome. There is no electrodiagnostic evidence for ulnar sensory neuropathy.
== END ==
PROVIDERS: PCP Family Medicine; Referring Provider Family Medicine; Visit Provider Family Medicine
DX: R20.0 Anesthesia of skin (principal); R20.2 Paresthesia of skin
CPT/HCPCS: 95886; 95913

== ENCOUNTER 2020-11-30 20:12 | Emergency (ER) | payer MEDICARE, SELFPAY ==
[2019-08-13 10:27] VITALS: BMI 29.2
[2019-12-13 08:38] VITALS: BMI 30.2
[2020-11-30 20:13] VITALS: BP 167/100; PULSE 62; RESP 16; TEMP 35.5; O2SAT 99; BMI 30.1
[2020-11-30 20:47] LABS: Absolute Lymphocyte Count 1.38 X10^3/uL (0.83-4.51); Absolute Neutrophil Count 3.3 X10^3/uL (2.0-7.7); Basophil# 0.03 X10^3/uL; Basophil% 0.6 % (0-1); Eosinophil# 0.09 X10^3/uL; Eosinophils% 1.7 % (0-5); Hematocrit 42.7 % (37-47); Hemoglobin 13.2 g/dL (12.0-15.0); Lymphocyte # 1.38 X10^3/ul (0.83-4.51); Lymphocyte % 25.9 % (19-41); Mean Corp Hgb Conc 30.9 g/dL (32-36); Mean Corpuscular Hgb 29.7 pg (27.0-32.0); Mean Corpuscular Volume 96.2 fL (81-99); Mean Platelet Vol. 9.4 fl (6.2-12.0); Monocyte# 0.47 X10^3/uL; Monocyte% 8.8 % (0-10); NRBC Flagged by Analyzer 0 % (0-5); Neutrophil # 3.33 X10^3/uL (2.7-7.7); Neutrophil % 62.4 % (47-70); Platelet Count 180 K/mm3 (150-450); RBC Distribution Width CV 13.1 % (11.6-14.6); RBC Distribution Width SD 45.9 fl (35.1-43.9); Red Blood Count 4.44 M/mm3 (4.2-5.4); White Blood Count 5.3 K/mm3 (4.4-11.0)
[2020-11-30 20:55] LABS: Anion Gap 4 (5-15); BUN 20 mg/dL (7-18); BUN/Creat Ratio 21.3 RATIO (10-20); Calcium,Total 8.8 mg/dL (8.5-10.1); Chloride 106 mmol/L (98-107); Creatinine, Serum 0.94 mg/dL (0.55-1.02); EST Glomerular Filtration Rate 63 mL/min (>60); Est Glom Filt Rate - Afr Amer 76 mL/min (>60); Estimated Creatinine Clearance 46.07 ml/min; Glucose 117 mg/dL (74-106); Potassium 3.7 mmol/L (3.5-5.1); Sodium Level 139 mmol/L (136-145)
--- NOTE | 2020-11-30 21:30 | CT_ITS ---
STUDY: CT ABDOMEN AND PELVIS WITH CONTRAST REASON FOR EXAM: Female, 70 years old. Abdominal pain. RADIATION DOSAGE (If Supplied By Facility): CTDIvol = ( 23.17 ) mGy, DLP = ( 868.58 ) mGycm TECHNIQUE: Transaxial images were obtained from the dome of the diaphragm to the symphysis pubis with oral contrast. Oral and amp; IV Breeza Neutral and amp; 100mL Isovue-300 was administered. Sagittal and coronal images were reconstructed. Individualized dose optimization techniques were used for this CT. COMPARISON: None. FINDINGS: The visualized lung bases are unremarkable. Mild cardiomegaly. Calcification of mitral anulus. Sternal wires. Normal liver. Heterogeneous material within the gallbladder which may represent sludge or gallstones. There is probably a thin rim of pericholecystic fluid. Normal spleen. Fluid along the posterior margin of the pancreas extending to the spleen suggestive of mild acute pancreatitis. Normal bilateral adrenal glands. 2.9 x 1.8 cm nodule anterior right kidney which does not represent a simple cyst. Mild left hydronephrosis versus parapelvic cysts. Possible 4 mm x 3 mm calcification in the region of the ureterovesicular junction representing a distal ureteral stone or a phlebolith. Focal left perinephric fluid probably related to pancreatitis described above. 1 to 2 mm nonobstructing left renal calculi. Normal visualized stomach. Normal small intestine. Scattered sigmoid diverticulosis. The appendix is not enlarged. A 5 mm appendicolith is present within the distal appendix. No periappendiceal inflammatory changes. Normal abdominal aorta. Normal inferior vena cava. Normal retroperitoneum. No intra-abdominal free air. Normal urinary bladder. Uterus not visualized suggestive of hysterectomy. Simple cyst right posterior hemipelvis measuring 7.2 x 5.7 cm. Normal abdominal wall. Degenerative changes of the lower thoracic and lumbar spine. CT/Abdomen/Pelvis WITH Contrast IMPRESSION: Fluid suggestive of mild acute pancreatitis. No pseudocyst formation. Possible pericholecystic fluid with sludge or small gallstones. Correlate with abdominal ultrasound to evaluate for acute cholecystitis. Mild left hydronephrosis versus parapelvic cysts. Questionable distal ureteral stone versus phlebolith. Correlate with delayed images of the kidneys, ureters and bladder at this time for clarification. 2.9 cm nodule right kidney which does not represent a simple cyst. This can be evaluated with ultrasound. Small nonobstructive left renal calculi. Appendicolith. The appendix is not enlarged. 7.2 cm cyst right hemipelvis which is probably benign. This can be correlated with ultrasound. Sigmoid diverticulosis. Mild cardiomegaly. Electronically Signed: Carter Houser MD at 0:20 EDT , Service support ,
--- NOTE | 2020-11-30 23:00 | EDS_ITS ---
HPI History of Present Illness Chief Complaint: Abd Pain Informant: patient Onset/Context/Timing Onset: Today Current Severity: Moderate Maximum Severity: Moderate Narrative Narrative: The patient is a 7-year-old female with medical history significant for aortic valve replacement who is not on anticoagulants, presents to the emergency department with left lower quadrant pain. Patient states that started today. She states that she work out at the gym was feeling fine. Shortly thereafter, she had a sharp stabbing pain in her left lower quadrant. She does describe increased urinary frequency and urgency. She denies fevers or chills. She states the pain was a 10 out of 10, but has since significantly slowed down. She started to have some hematuria. She has never had symptoms like this before. Prior similar symptoms: No Recent Illness/Hospitalization: No PFSH PFSH Medical History Aortic valve stenosis (~05/04/17) Atrial fibrillation, persistent (~06/22/19) Cardiac mass (~10/05/18) colonoscopy Decreased hearing of both ears Essential hypertension GERD (gastroesophageal reflux disease) (~05/18/97) H/O iron deficiency anemia h/o kidney stones History of fractured pelvis History of fractured pelvis Lung nodules (08/22/17) Mitral valve annular calcification Onychomycosis Raynauds disease s/p removal of calcified nodule mitral l Varicose vein of leg Home Medications aspirin 162 mg PO DAILY@0800 09/04/17 [History Last Taken 10/24/17] cholecalciferol (vitamin D3) [Vitamin D3] 1,000 unit PO DAILY 09/04/17 [History Last Taken 10/24/17] ferrous gluconate 236 mg PO DAILY 09/04/17 [History Last Taken 10/24/17] multivitamin [Multiple Vitamins] 1 ea PO DAILY 09/04/17 [History Last Taken 10/24/17] metoprolol tartrate 25 mg PO TID 08/18/18 [History Last Taken Unknown] fluticasone propionate 1 spray NASAL DAILY PRN 08/13/19 [History Last Taken Unknown] sodium chloride 08/13/19 [History Last Taken Unknown] hydrocodone-acetaminophen 1 tab PO Q6H PRN PRN 3 Days #10 tablet 12/01/20 [Rx Last Taken Unknown] ondansetron 4 mg PO Q8H PRN PRN #10 tab 12/01/20 [Rx Last Taken Unknown] tamsulosin 0.4 mg PO DAILY #7 capsule 12/01/20 [Rx Last Taken Unknown] Allergy/AdvReac Type Severity Reaction Status Date / Time codeine Allergy Unknown Verified 08/18/18 06:48 environmental Allergy Unknown Itching Uncoded 08/18/18 06:48 codeine Allergy Unknown Uncoded 08/18/18 06:48 Surgical History S/P aortic valve replacement (05/12/17) S/P removal of ovarian cyst Social History Smoking Status: Never smoker ROS ROS ED Constitutional Constitutional ED: Denies chills or fever(s) Eyes Eyes: Denies blurry vision or change in vision ENT ENT ED: Denies ear pain or sore throat Cardiovascular Cardiovascular: Denies chest pain or palpitations Respiratory/Chest Respiratory/Chest: Denies cough, dyspnea or dyspnea on exertion Gastrointestinal Gastrointestinal: Denies abdominal pain, nausea or vomiting Genitourinary Genitourinary ED: Denies dysuria or urinary frequency Musculoskeletal Musculoskeletal: Denies arthralgias or myalgias Integumentary Denies rash Neurologic Neurologic: Denies headache(s) or paresthesias Psychiatric Psychiatric: Denies anxiety or depression Endocrine Endocrinology: Denies polydipsia or polyuria Allergic/Immunologic Allergic/Immunologic ED: Denies urticaria EXAM Physical Exam Const Vital Signs: 11/30/20 20:13 11/30/20 23:10 Temperature 96 F L Temperature Source Temporal Pulse Rate 62 66 Respiratory Rate 16 Blood Pressure 167/100 H 137/61 H Blood Pressure Mean 122 86 Pulse Ox 99 98 Oxygen Delivery Method Room Air Room Air Positive well nourished and well developed General Appearance ED: well developed HEENT Reports normocephalic, head/scalp atraumatic and moist mucous membranes Eyes PERRL and EOMs intact bilaterally Neck no lymphadenopathy and supple General: Negative for tenderness Chest Wall inspection of chest normal Resp normal respiratory effort and clear to auscultation bilaterally Cardio regular rate, regular rhythm and no murmurs GI normal to inspection, nondistended, normoactive bowel sounds Palpation: Negative for tender, guarding or rebound tenderness present Back/Spine no CVA tenderness Cervical Spine: Negative for cervical spine tenderness Thoracic Spine / Upper Back: Negative for thoracic spinal tenderness Extremity normal to inspection General Extremety ED: Negative for tenderness Neuro oriented x3 and CN's II-XII intact bilaterally Neuro Narrative: No focal deficits appreciated. Sensorium / Orientation: alert Psych mental status grossly normal Skin no rashes or lesions noted, no wounds and skin turgor normal MDM MDM MDM Narrative Medical decision making narrative: Patient is an otherwise healthy female presents with left lower quadrant pain into her left back. She was mildly nauseated without any vomiting. She has never had symptoms like this before. Urine does show red blood cells. Screening labs were obtained with no significant abnormalities. Patient underwent CT imaging. It does show right hydronephrosis with a distal obstructing stone. There was concern for pancreatitis, but patient has no midepigastric pain. I did add on a lipase. Patient was pain-free and that her pain returned mildly. This was treated. At this point, I do feel that she is safe for outpatient therapy. She is comfortable with this plan of care. Impression 1. Left-sided urolithiasis Lab Data Attestation: I reviewed the patient's lab results. Labs: Laboratory Results - last 24 hr 11/30/20 11/30/20 11/30/20 20:40 20:40 23:10 WBC 5.3 RBC 4.44 Hgb 13.2 Hct 42.7 MCV 96.2 MCH 29.7 MCHC 30.9 L RDW Std Deviation 45.9 H RDW Coeff of [place] 13.1 Plt Count 180 MPV 9.4 Immature Gran % (Auto) 0.600 Neut % (Auto) 62.4 Lymph % (Auto) 25.9 [place] % (Auto) 8.8 Eos % (Auto) 1.7 Baso % (Auto) 0.6 Absolute Neuts (auto) 3.3 Absolute Lymphs (auto) 1.38 Nucleated RBC % 0 Sodium 139 Potassium 3.7 Chloride 106 Carbon Dioxide 29.0 Anion Gap 4 L BUN 20 H Creatinine 0.94 Estim Creat Clear Calc 46.07 Est GFR (MDRD) Af Amer 76 Est GFR (MDRD) Non-Af 63 BUN/Creatinine Ratio 21.3 H Glucose 117 H Calcium 8.8 Urine Color Yellow Urine Clarity Sl. Cloudy Urine pH 6.5 Ur Specific [place] 1.015 Urine Protein 30 H Urine Glucose (UA) Normal Urine Ketones 15 H Urine Occult Blood 250 H Urine Nitrite Negative Urine Bilirubin Negative Urine Urobilinogen Normal Ur Leukocyte Esterase Negative Urine RBC > 100 SEEN Urine WBC 0-5 SEEN Ur Squamous Epith Cells 0 SEEN Urine Bacteria 0 SEEN Urine Mucus 0 SEEN Radiography Diagnostic Testing: Radiology Impression Abdomen/Pelvis CT 11/30/20 21:30 IMPRESSION: Fluid suggestive of mild acute pancreatitis. No pseudocyst formation. Possible pericholecystic fluid with sludge or small gallstones. Correlate with abdominal ultrasound to evaluate for acute cholecystitis. Mild left hydronephrosis versus parapelvic cysts. Questionable distal ureteral stone versus phlebolith. Correlate with delayed images of the kidneys, ureters and bladder at this time for clarification. 2.9 cm nodule right kidney which does not represent a simple cyst. This can be evaluated with ultrasound. Small nonobstructive left renal calculi. Appendicolith. The appendix is not enlarged. 7.2 cm cyst right hemipelvis which is probably benign. This can be correlated with ultrasound. Sigmoid diverticulosis. Mild cardiomegaly. Electronically Signed: Carter Houser MD at 0:20 EDT , Service support , Discharge Plan Triage Chief Complaint: Abd Pain ED Provider: Kwasi Anderson Dx/Rx/DC Orders Instructions: ED Kidney Stone w/ Colic Prescriptions: New hydrocodone-acetaminophen [hydrocodone-acetaminophen] 1 TABLET tablet 1 tab PO Q6H PRN PRN (Reason: Pain) 3 Days Qty: 10 RF: 0 tamsulosin [tamsulosin] 0.4 MG capsule 0.4 mg PO DAILY Qty: 7 RF: 0 ondansetron [ondansetron] 4 MG tablet 4 mg PO Q8H PRN PRN (Reason: Nausea) Qty: 10 RF: 0 No Action multivitamin [Multiple Vitamins] 1 EACH tablet 1 ea PO DAILY RF: 0 aspirin 81 MG tablet,chewable 162 mg PO DAILY@0800 RF: 0 cholecalciferol (vitamin D3) [Vitamin D3] 1,000 UNIT tablet 1,000 unit PO DAILY RF: 0 ferrous gluconate 236 MG tablet 236 mg PO DAILY RF: 0 metoprolol tartrate 25 MG tablet 25 mg PO TID RF: 0 fluticasone propionate 1 SPRAY spray,suspension 1 spray NASAL DAILY PRN (Reason: Sinus Congestion) RF: 0 sodium chloride 1 SPRAY aerosol,spray RF: 0 Primary Care Provider: Erik Palafox Referrals: Erik Palafox MD [Primary Care Provider] -
[2020-11-30] MEDS: Ondansetron 4 MG/2 ML Vial IV (23:05)
[2020-11-30 23:10] VITALS: BP 137/61; PULSE 66; O2SAT 98
[2020-11-30 23:14] LABS: Bacteria 0 SEEN /hpf (None Seen); Mucous, Urine 0 SEEN /hpf (<or=2+); Squamous Epithelial Cells - UA 0 SEEN /hpf (5-10)
[2020-11-30 23:17] LABS: Color, Urine Yellow (Yellow); Glucose, Dipstick Normal (Normal); Ketone-Dipstick 15 mg/dl (Negative); Leukocyte Esterase-Dipstick Negative /ul (Negative); Nitrite-Dipstick Negative (Negative); Occult Blood-Urine 250 /ul (Negative); Protein-Dipstick 30 mg/dl (Negative); Specific Gravity, Urine 1.015 (1.002-1.030); Urine Bilirubin Dipstick Negative (Negative); Urine Clarity Sl. Cloudy (Clear); Urine Urobilinogen Normal (Normal); Urine pH 6.5 (5.0 - 8.0)
[2020-11-30 23:25] LABS: Red Blood Cells-Urine > 100 SEEN /hpf (0-5); White Blood Cells 0-5 SEEN /hpf (0-5)
[2020-12-01 00:52] LABS: Lipase 165 U/L (73-393)
[2020-12-01 01:00] VITALS: BP 138/70; PULSE 80; RESP 18; O2SAT 98
[2020-12-01] MEDS: Ketorolac 15 MG/ML Vial IV (01:14)
[2020-12-01] MEDS: Morphine 4 MG/ML Syringe IV (01:15)
== END 2020-12-01 01:25 ==
LOC: ED 23:50
PROVIDERS: Emergency Provider Emergency Medicine; PCP Family Medicine
DX: R10.32 Left lower quadrant pain (principal); N13.2 Hydronephrosis with renal and ureteral calculous obstruction; I48.19 Other persistent atrial fibrillation; I10 Essential (primary) hypertension; I73.00 Raynaud's syndrome without gangrene; K21.9 Gastro-esophageal reflux disease without esophagitis; Z79.82 Long term (current) use of aspirin; Z87.442 Personal history of urinary calculi; Z95.2 Presence of prosthetic heart valve; Z79.899 Other long term (current) drug therapy
CPT/HCPCS: 74177; 80048; 81001; 83690; 85025; 96374; 96375; 99283; Q9967; A4216; J2405

== ENCOUNTER → 2020-12-30 06:27 | Outpatient (CLI) | payer MEDICARE, SELFPAY ==
[2019-12-13 08:38] VITALS: BMI 30.2
[2020-11-30 20:13] VITALS: BMI 30.1
--- NOTE | 2020-12-29 15:43 | RAD_ITS ---
STUDY: X-RAY - ORBITS REASON FOR EXAM: Female, 70 years old. 3 of metal object to the eye. TECHNIQUE: 2 view(s) of the orbits were obtained. COMPARISON: None. FINDINGS: Normal bilateral orbits without a metallic orbital foreign body. Normal visualized facial bones. Normal paranasal sinuses. The soft tissue structures are unremarkable. RAD/Orbits for Foreign Body IMPRESSION: No demonstrated metallic orbital foreign body. The patient is cleared for an MRI examination. Electronically Signed: Omari Elam DO at 16:49 EDT Tel [phone], Service support ,
--- NOTE | 2020-12-30 06:40 | MRI_ITS ---
STUDY: MRI ABDOMEN WITH AND WITHOUT CONTRAST REASON FOR EXAM: Female, 70 years old. NEOPLASM OF UNCERTAIN BEHAVIOR, GROSS HEMATURIA, RT KIDNEY NODULE; f/u to ct abd TECHNIQUE: Standardized fat and water weighted pulse sequences were obtained in all 3 orthogonal planes post contrast administration. IV 15ml Dotarem was administered for the contrast portion of the examination. COMPARISON: CT 11/30/2020 FINDINGS: The visualized lung bases are unremarkable. The visualized portions of the heart are within normal limits. Normal liver. There are multiple gallstones. Normal spleen. Normal pancreas. Normal bilateral adrenal glands. 3 cm T2 hyperintense mass demonstrate no contrast-enhancement of the anterior cortex of the midsection of right kidney consistent with a cyst. A 1 cm cyst is seen in the medial upper pole the right kidney. Other smaller cysts are noted. Extrarenal pelvis of the kidneys bilaterally. Normal visualized stomach. Normal small intestine. Normal colon. There is non-visualization of the appendix. Normal abdominal aorta. Normal inferior vena cava. Normal retroperitoneum. Normal abdominal wall. Normal osseous structures. MRI/MRI Abd WITH and W/O Contrast IMPRESSION: 1. MRI confirms a 3 cm cyst in the anterior cortex of mid section right kidney corresponding to the mass seen on CT. 2. Small renal cysts bilaterally. 3. Extrarenal pelvis of the kidneys bilaterally. 4. Cholelithiasis Electronically Signed: Calderon Salazar MD at 9:15 EDT Tel , Service support ,
== END ==
PROVIDERS: PCP Family Medicine; Referring Provider Nurse Practitioner Adult Health; Visit Provider Nurse Practitioner Adult Health
DX: R31.0 Gross hematuria (principal); D41.00 Neoplasm of uncertain behavior of unspecified kidney
CPT/HCPCS: 70030; 74183; A9575

== ENCOUNTER → 2022-07-01 | Outpatient (CLI) | payer MEDICARE, SELFPAY ==
[2019-12-13 08:38] VITALS: BMI 30.2
--- NOTE | 2022-07-01 16:30 | CYSPIN_PTH ---
PATIENT: JULIA DENNISON LOC: ALF U#:[id number] AGE/SX: 71/F ROOM: RE07/01/[address]: Dr. Suni Alvarez MD : 1950 BED: DIS: 07/01/2022 SPEC #: [id number] RECD: 07/04/22 08:33 STATUS: ASAD REAngelika #: [id number] JUMA: 07/01/22 16:[address]: Suni Alvarez DEPT: CYTOLOGY RECD BY: Yvnone Ngo ENTERED: 07/04/22 08:34 SP TYPE: CYSPIN FL OTHR DR: Dr. Erik Palafox MD Tissues: Urine Procedures: Pap Stain (control) Special Stain Group II Cytospin Fluid HEADER OPERATION: Not noted PRE-OP DIAGNOSIS: Gross hematuria TISSUE SUBMITTED: Urine for cytology DIAGNOSIS CYTOLOGY Urine for cytology (cytospin): Atypical urothelial cells present ([place] Category III). See comment. AM:yaakov 07/04/2022 COMMENT The [place] System for thyroid diagnostic categorization was used in the evaluation of this case. The specimen is adequate for evaluation. CYTOLOGY STUDY Slides are reviewed. CYTOLOGY GROSS Received is 50 ml of yellow cloudy fluid labeled with the patient's name and and designated per the requisition as urine. Submitted for cytology preparation. / yaakov 07/01/2022 TC:? CPT: 51672
[2022-07-01 17:39] LABS: Cytology, Body Fluid / CSF SEE PATHOLOGY REPORT
== END | disposition home or self-care (01) ==
PROVIDERS: PCP Family Medicine; Visit Provider Urology
DX: R31.0 Gross hematuria (principal)
CPT/HCPCS: 88108; 88313

== ENCOUNTER → 2022-07-14 | Outpatient (CLI) | payer MEDICARE, SELFPAY ==
[2019-12-13 08:38] VITALS: BMI 30.2
--- NOTE | 2022-07-14 07:42 | CT_ITS ---
STUDY: CT ABDOMEN AND PELVIS WITH AND WITHOUT CONTRAST REASON FOR EXAM: Female, 71 years old. GROSS HEMATURIA RADIATION DOSAGE (If Supplied By Facility): CTDIvol = ( 21.56 ) mGy, DLP = ( 2768.82 ) mGycm TECHNIQUE: Transaxial images were obtained from the dome of the diaphragm to the symphysis pubis without oral contrast. IV 100mL Isovue-300 was administered. Sagittal and coronal images were reconstructed. Individualized dose optimization techniques were used for this CT. COMPARISON: Comparison is made with prior study from . FINDINGS: The visualized lung bases are unremarkable. The visualized portions of the heart are within normal limits. Normal liver. Fundus suggestive of small gallstones with minimally thickened gallbladder wall. Small amount of pericholecystic fluid. Normal spleen. Normal pancreas. Normal bilateral adrenal glands. Multiple nonobstructive tiny bilateral intrarenal calculi. Left greater than right. The largest measures 4 mm in the lower follow-up of the left kidney. Mild fullness of the left renal pelvis. There is a 2.6 cm cyst in the anterior aspect of the right kidney. Normal visualized stomach. Normal small intestine. There are multiple colonic diverticula consistent with diverticulosis. There is a calcified appendicolith. There is scattered atherosclerotic calcification of the abdominal aorta, without a demonstrated aneurysm. Normal inferior vena cava. Normal retroperitoneum. Normal urinary bladder. Persistent 7.6 cm x 6.5 cm cyst in the right adnexa. Normal abdominal wall. There are diffuse degenerative changes of the visualized lumbar spine. CT/CT Abd/Pelvis W/WO Contrast IMPRESSION: Findings suggestive of gallstones with minimally thickened gallbladder wall and small amount of pericholecystic fluid. Small bilateral nonobstructive intrarenal calculi more prominent on the left side. Mild fullness of the left kidney. Right renal cysts. Persistent cystic mass in the right adnexa. Electronically Signed: Cristopher Avila MD at 9:31 EST ,
[2022-07-14 08:10] LABS: CREATININE FINGERSTICK < 0.9 mg/dL (0.55-1.02); EGFR FINGERSTICK > 60.0000 mL/min (>60)
== END | disposition home or self-care (01) ==
PROVIDERS: PCP Family Medicine; Visit Provider Urology
DX: R31.0 Gross hematuria (principal)
CPT/HCPCS: 74178; Q9967

== ENCOUNTER → 2022-10-19 | Outpatient (CLI) | payer MEDICARE, SELFPAY ==
[2019-12-13 08:38] VITALS: BMI 30.2
[2022-10-19 18:00] LABS: Cytology, Body Fluid / CSF SEE PATHOLOGY REPORT
--- NOTE | 2022-10-20 | CYSPIN_PTH ---
PATIENT: JULIA DENNISON LOC: ALF U#:[id number] AGE/SX: 72/F ROOM: RE10/19/[address]: Dr. Suni Alvarez MD : 1950 BED: DIS: 10/19/2022 SPEC #: [id number] RECD: 10/20/22 11:43 STATUS: ASAD REAngelika #: [id number] JUMA: 10/20/22 00:[address]: Suni Alvarez DEPT: CYTOLOGY RECD BY: Kevin Jarvis ENTERED: 10/20/22 11:43 SP TYPE: CYSPIN FL OTHR DR: Dr. Erik Palafox MD Tissues: Urine Procedures: Pap Stain (control) Special Stain Group II Cytospin Fluid HEADER OPERATION: Not noted PRE-OP DIAGNOSIS: Gross hematuria TISSUE SUBMITTED: Urine for cytology DIAGNOSIS CYTOLOGY Urine for cytology (cytospin): Negative for high-grade urothelial carcinoma (NDGUC), [place] System Category II. See comment. SJ:yaakov 10/21/2022 COMMENT Crystals and red blood cells are noted. Clinical correlation and appropriate follow up are necessary. The [place] System for urine cytology diagnostic categorization was used in the evaluation of this case. CYTOLOGY STUDY Slides are reviewed. CYTOLOGY GROSS Received is 40 ml of yellow cloudy fluid labeled with the patient's name and and designated per the requisition as urine. Submitted for cytology preparation. / yaakov 10/20/2022 TC:5 CPT: 07687
== END | disposition home or self-care (01) ==
PROVIDERS: PCP Family Medicine; Visit Provider Urology
DX: R31.0 Gross hematuria (principal)
CPT/HCPCS: 88108; 88313

== ENCOUNTER → 2023-10-25 | Outpatient (CLI) | payer MEDICARE, SELFPAY ==
[2019-12-13 08:38] VITALS: BMI 30.2
--- NOTE | 2023-10-25 13:57 | RAD_ITS ---
STUDY: X-RAY - ABDOMEN/PELVIS REASON FOR EXAM: Female, 73 years old. Kidney stones. TECHNIQUE: Single AP view of the abdomen / pelvis. COMPARISON: CT of the abdomen and pelvis dated July 14, 2022 FINDINGS: Normal visualized lung bases. Normal bowel gas pattern with air seen to the rectosigmoid. Moderate to marked amount of feces in the colon. Intra-abdominal contours substantially obscured by overlying bowel gas and feces. Phleboliths. Lower lumbosacral spondylosis and mild arthrosis of both hips. RAD/Abdomen Single View IMPRESSION: Abdominal contours obscured by overlying bowel gas and feces. No abnormal calcifications identified. Electronically Signed: Guero Banks MD at 15:18 EDT ,
== END | disposition home or self-care (01) ==
PROVIDERS: PCP Family Medicine; Referring Provider Urology; Visit Provider Urology
DX: N20.0 Calculus of kidney (principal)
CPT/HCPCS: 74018